=== PATIENT | female | born 1965 | race Caucasian/White ===

== ENCOUNTER 2017-10-28 20:49 | Inpatient (IN) | payer OTHER ==
[~2017-10-28] VITALS: Ht 172.7 cm; Wt 83.9 kg
[2017-10-28 21:51] LABS: ABSOLUTE BASOPHIL COUNT 0 /CUMM (0.0-0.2); ABSOLUTE EOSINOPHIL COUNT 0.1 /CUMM (0.0-0.7); ABSOLUTE GRANULOCYTE CT 11.5 /CUMM (1.4-6.5); ABSOLUTE LYMPH COUNT 1.2 /CUMM (1.2-3.4); ABSOLUTE MONOCYTE COUNT 1.4 /CUMM (0.10-0.60); BASOPHIL % 0.2 % (0.0-2.0); EOSINOPHIL % 0.4 % (0-5); GRANULOCYTE % 80.9 % (42.2-75.2); HEMATOCRIT 42.4 % (37-47); MEAN CORPUSCULAR HGB 33.7 PG (27.0-31.0); MEAN CORPUSCULAR HGB CONC 33.4 G/DL (33.0-37.0); MEAN CORPUSCULAR VOLUME 100.6 FL (81.0-99.0); MEAN PLATELET VOLUME 9.2 FL (7.4-10.4); PLATELET COUNT 185 /CUMM (130-400); RBC DISTRIBUTION WIDTH 15.7 % (11.5-14.5); RED BLOOD CELL CT 4.22 /CUMM (4.20-5.40); WHITE BLOOD CELL COUNT 14.3 /CUMM (4.8-10.8)
--- NOTE | 2017-10-28 21:51 | ED GI/GU/ABDOMINAL COMPLAINT ---
History of Present Illness General Chief Complaint: Nausea, Vomiting, Diarrhea Stated Complaint: +N/V/D X3DAYS, ?RECTAL BLEEDING PER PT Source: patient Exam Limitations: no limitations Vital Signs & Intake/Output Vital Signs & Intake/Output Vital Signs Date Time Temp Pulse Resp B/P B/P Pulse O2 O2 Flow FiO2 Mean Ox Delivery Rate 10/28 2335 99.3 67 20 130/62 96 Room Air 10/28 2105 98.9 82 22 167/87 ED Intake and Output 10/29 0000 10/28 1200 Intake Total 2000 Output Total Balance 1999 Intake, IV 1999 Patient 185 lb Weight Allergies Coded Allergies: NO KNOWN ALLERGIES (10/14/12) Triage Note: PER PT VOMITIING AND DIARRHEA X 2 WEEKS BUT INTERMITTANTLY WILL FEEL WELL, SUNDAY PROFOUND VOMITING AND DIARRHEA AND TODAY BLOOD WITH DIARRHEA Triage Nurses Notes Reviewed? yes ? N Is pt currently ? No Duration: getting worse Timing: recent history Quality/Severity: cramping, moderate Severity Numbers: 5 Location: generalized abdomen Radiation: no radiation HPI: Patient is a 52-year-old female with a past medical history of type 1 diabetes with current insulin pump, osteomyelitis, rheumatoid arthritis currently on prednisone and methotrexate and depression who presents emergency and that the past 2-3 weeks she has noticed intermittent nausea and vomiting however since Sunday 3 days ago patient has had persistent nausea vomiting diarrhea initially was loose watery diarrhea production however in the past 24 hours she has noted significant bright red blood passing Patient can tolerate by mouth liquids however has had intermittent episodes of vomiting nonbloody nonbilious emesis. Last colonoscopy was partially 10 years ago due to family history of colon cancer unremarkable findings Patient is on NSAIDs for her chronic pain and arthritis Denies any significant alcohol use NO fevers but does have chills Denies any significant abdominal pain over feels mild cramping due to nausea and vomiting and diarrhea Denies any chest pain shortness breath arm pain jaw pain back pain, hemoptysis leg swelling (Machelle DIAZ,Hermelindo) Past History Travel History Traveled to [place] past 21 day No Medical History Any Pertinent Medical History? see below for history Neurological: NONE EENT: NONE Cardiovascular: hypertension Respiratory: NONE Gastrointestinal: NONE Hepatic: NONE Renal: NONE Musculoskeletal: RHEMATOID Psychiatric: NONE Endocrine: DM Pneumonia Vaccine: 07/15/10 Influenza Vaccine: 07/15/10 Surgical History Surgical History: hysterectomy Psychosocial History Who do you live with Spouse Services at Home None What is your primary language Greenlandic Tobacco Use: Current Daily Use Daily Tobacco Use Amount/Type: => 5 Cigarettes daily Family History Hx Contributory? No (Hermelindo Riggs) Review of Systems Review of Systems Constitutional: Reports: see HPI, chills. EENTM: Reports: no symptoms. Respiratory: Denies: cough, short of breath. Cardiovascular: Reports: no symptoms. GI: Reports: see HPI, nausea, bloody stool, vomiting. Genitourinary: Reports: no symptoms. Musculoskeletal: Reports: no symptoms. Skin: Reports: no symptoms. Neurological/Psychological: Reports: no symptoms. Hematologic/Endocrine: Reports: no symptoms. Immunologic/Allergic: Reports: no symptoms. All Other Systems: Reviewed and Negative (Hermelindo Riggs) Physical Exam Physical Exam General Appearance: no apparent distress, alert, comfortable Head: atraumatic Eyes: Bilateral: normal appearance. Ears, Nose, Throat, Mouth: moist mucous membrane Neck: normal inspection Respiratory: no respiratory distress Cardiovascular: regular rate/rhythm Peripheral Pulses: 2+ radial (R) Gastrointestinal: normal bowel sounds, soft, tenderness (MILD GENERALIZED) Rectal: normal inspection, normal rectal tone, BRIGHT RED BLOOD AFTER MARCO, NO ACTIVE BLEEDING Extremities: normal range of motion Neurologic/Psych: no motor/sensory deficits Skin: intact, normal color, warm/dry Core Measures ACS in differential dx? No Sepsis Present: No Sepsis Focused Exam Completed? No (Hermelindo Riggs) Progress Differential Diagnosis: AAA, AMI, appendicitis, biliary colic, bowel obstruction , colon cancer, cholecystitis, diverticulitis, endometritis, esophageal varices, gastritis, hepatitis, hernia, hemorrhoids, ischemic bowel, inflamm bowel dis, kidney stone, Aneta-Pattie tear, ovarian cyst, ovarian torsion, pancreatitis, PID/cervicitis, peptic ulcer, PUD/GERD, perforated viscous, SBO, UTI/pyelo Plan of Care: Orders Procedure Date/time Status Nothing by Mouth 10/29 B Active Patient Data 10/29 135 Active Saline Lock 10/29 37 Active Misc Message 10/29 37 Active ED Holding Orders 10/29 37 Active Admit to inpatient 10/29 37 Active Vital Signs 10/29 37 Active Code Status 10/29 37 Active Add-on Test (ER Only) 10/28 2209 Active MIXED VENOUS BLOOD GAS (GEN) 10/28 2154 Complete RAPID VIRAL INFLUENZA A 10/28 2154 Complete Add-on Test (ER Only) 10/28 2153 Active PARTIAL THROMBOPLASTIN TIME 10/28 2136 Complete PROTHROMBIN TIME 10/28 2136 Complete LACTIC ACID 10/28 2136 Complete ACETONE 10/28 2136 Complete TYPE & SCREEN (NOT X-MATCH) 10/28 2136 Complete TROPONIN LEVEL 10/28 2109 Complete LIPASE 10/28 2109 Complete HEPATIC FUNCTION PANEL 10/28 2109 Complete CBC WITHOUT DIFFERENTIAL 10/28 2109 Complete BASIC METABOLIC PANEL 10/28 2109 Complete AMYLASE 10/28 2109 Complete EKG 10/28 2109 Active Laboratory Tests 10/28/172209: Bicarbonate Actual 27 H, Mixed VBG pH 7.40, Mixed VBG pCO2 45, Mixed VBG O2 Saturation 22 L, Carboxyhemoglobin 4.1, O2 Concentration % R/A, Phlebotomy Draw Site VENOUS 10/28/172136: Anion Gap 14, Estimated GFR > 60, BUN/Creatinine Ratio 51.7 H, Glucose 249 H, Lactic Acid 2.5 H, Calcium 9.1, Total Bilirubin 1.0, Direct Bilirubin 0.6 H, AST 17, ALT 32, Alkaline Phosphatase 71, Troponin I 0.02, Total Protein 6.3, Albumin 3.8, Amylase 39, Lipase 13 L, PT 11.8, INR 1.13, APTT 29, CBC w Diff NO MAN DIFF REQ, RBC 4.22, MCV 100.6 H, MCH 33.7 H, RDW 15.7 H, MPV 9.2, Gran % 80.9 H, Lymphocytes % 8.6 L, Monocytes % 9.9 H, Eosinophils % 0.4, Basophils % 0.2, Absolute Granulocytes 11.5 H, Absolute Lymphocytes 1.2, Absolute Monocytes 1.4 H, Absolute Eosinophils 0.1, Absolute Basophils 0, PUBS MCHC 33.4 , Acetone Level NEGATIVE Microbiology 10/28 2223 NASOPHARYN: Influenza Virus A & B Rapid Smear - COMP Patient does have normal rectal tone however after digital rectal exam there was bright red blood Patient was reevaluated on multiple occasions noted to be resting comfortably however noted to be lethargic on exam CT scan was resulted showing concerns of nonspecific colitis discussed results with centrifugal casting machine operator Dr. JACOBS who is aware patient's clinical condition and would vies patient to be admitted in which he advised to hold antibiotics at this time and a colonoscopy after admission will be warranted. Discussed admission with patient who agrees and is aware and has no questions. Diagnostic Imaging: Viewed by Me: CT Scan. Radiology Impression: acute abnormality Initial ED EKG: normal p-waves, normal QRS complex, normal sinus rhythm, NSR 65 BPM Comments: PATIENT: NAHOMI COLÓN PRESENT AGE: 52 PATIENT ACCOUNT NO: [id number] : 64 LOCATION: ER ORDERING PHYSICIAN: Hermelindo DIAZ SERVICE DATE: 10/28/17 EXAM TYPE: CAT - CT ABD & PELVIS W IV CONTRAST EXAMINATION: CT ABDOMEN AND PELVIS WITH CONTRAST CLINICAL INFORMATION: Nausea, vomiting, diarrhea, bloody stool and abdominal pain. COMPARISON: None TECHNIQUE: Multidetector volumetric imaging was performed of the abdomen and pelvis following IV administration of 94 mL of Optiray 320 intravenous contrast. Sagittal and coronal reformatted images were obtained on the technologist's workstation. DLP: 428.27 mGy-cm FINDINGS: LUNG BASES: There is mild bibasilar dependent atelectasis. There are coronary artery atherosclerotic calcifications. LIVER, GALLBLADDER, AND BILIARY TREE: The liver is normal in size, shape, and attenuation. No focal hepatic lesion or biliary ductal dilatation is present. There are tiny dependent gallstones (3:224), without gallbladder wall thickening or obvious pericholecystic inflammatory changes. PANCREAS: Unremarkable. SPLEEN: Unremarkable. ADRENAL GLANDS: Unremarkable. KIDNEYS AND URETERS: The kidneys are normal in size, shape, and attenuation. No hydronephrosis, hydroureter, or calculi seen. Within the upper pole of the left kidney (3:223), there is a 1.0 cm low-attenuation probable cyst, too small to fully characterize with CT. No perinephric stranding. BLADDER: Unremarkable. GASTROINTESTINAL TRACT: There is marked colonic wall thickening involving the distal transverse colon, splenic flexure and the descending colon. There is adjacent mesenteric fat stranding. There is a small amount of free fluid within the pelvis. No obstruction, free intraperitoneal air or abscess is seen. There are a few scattered colonic diverticuli, without acute diverticulitis seen. The vermiform appendix appears normal. ABDOMINAL WALL: There are very small fat-containing bilateral hernias. LYMPH NODES: Normal. VASCULAR: There is mild aortoiliac atherosclerotic change. No abdominal aortic aneurysm is seen. PELVIC VISCERA: The uterus is atrophic or surgically absent. No adnexal mass is seen. Moderate pelvic free fluid seen. OSSEOUS STRUCTURES: Unremarkable. IMPRESSION: 1. There is diffuse wall thickening of the distal transverse colon, splenic flexure and the descending colon. Likely differential considerations include infectious colitis (including C. difficile), inflammatory bowel disease and, less likely, ischemia. Please correlate clinically. 2. No obstruction, free intraperitoneal air or abscess is seen. The vermiform appendix appears normal. 3. There is mild cholelithiasis. 4. Moderate pelvic free fluid is seen. DICTATED BY: Dipesh Araujo MD DATE/TIME DICTATED:10/28/172313 REGULATORY COORDINATOR:JEROME (Hermelindo Riggs) Departure Departure Disposition: STILL A PATIENT Condition: Stable Clinical Impression Primary Impression: Rectal bleed Secondary Impressions: Colitis, Diarrhea Referrals: Ryann Puentes MD (PCP/Family) Departure Forms: Customer Survey General Discharge Information Admission Note Spoke With: Faith Silva MD Documentation of Exam: Documentation of any treatments & extenuating circumstances including Concerns Regarding Discharge (functional status, medication knowledge or non-compliance, living conditions, etc.) that warrant an admission rather than observation: [ Patient requires IV fluids, repeat labs, gastric gastroenterology consultation colonoscopy for concerns of GI bleed] (Hermelindo Riggs) PA/KILN SETTER Co-Sign Statement Statement: ED Attending supervision documentation- [x] I saw and evaluated the patient. I have also reviewed all the pertinent lab results and diagnostic results. I agree with the findings and the plan of care as documented in the PA's/KILN SETTER's documentation. 10/29/17, 0:15... pt with gi slow gi bleed... PA discussed with GI... pt to be admitted for serial hct. [] I have reviewed the ED Record and agree with the PA's/KILN SETTER's documentation. [] Additions or exceptions (if any) to the PAs/KILN SETTER's note and plan are summarized below: [] (Vicki DIAZ,Dov Aguilera) Critical Care Note Critical Care Note Critical Care Time: 30-74 min (Hermelindo Riggs)
[2017-10-28 22:48] LABS: PT 11.8 SEC (9.4-12.5); PTT 29 SEC (25-37)
--- NOTE | 2017-10-28 23:27 | CT SCAN REPORT ---
EXAMINATION: CT ABDOMEN AND PELVIS WITH CONTRAST CLINICAL INFORMATION: Nausea, vomiting, diarrhea, bloody stool and abdominal pain. COMPARISON: None TECHNIQUE: Multidetector volumetric imaging was performed of the abdomen and pelvis following IV administration of 94 mL of Optiray 320 intravenous contrast. Sagittal and coronal reformatted images were obtained on the technologist's workstation. DLP: 428.27 mGy-cm FINDINGS: LUNG BASES: There is mild bibasilar dependent atelectasis. There are coronary artery atherosclerotic calcifications. LIVER, GALLBLADDER, AND BILIARY TREE: The liver is normal in size, shape, and attenuation. No focal hepatic lesion or biliary ductal dilatation is present. There are tiny dependent gallstones (3:224), without gallbladder wall thickening or obvious pericholecystic inflammatory changes. PANCREAS: Unremarkable. SPLEEN: Unremarkable. ADRENAL GLANDS: Unremarkable. KIDNEYS AND URETERS: The kidneys are normal in size, shape, and attenuation. No hydronephrosis, hydroureter, or calculi seen. Within the upper pole of the left kidney (3:223), there is a 1.0 cm low-attenuation probable cyst, too small to fully characterize with CT. No perinephric stranding. BLADDER: Unremarkable. GASTROINTESTINAL TRACT: There is marked colonic wall thickening involving the distal transverse colon, splenic flexure and the descending colon. There is adjacent mesenteric fat stranding. There is a small amount of free fluid within the pelvis. No obstruction, free intraperitoneal air or abscess is seen. There are a few scattered colonic diverticuli, without acute diverticulitis seen. The vermiform appendix appears normal. ABDOMINAL WALL: There are very small fat-containing bilateral hernias. LYMPH NODES: Normal. VASCULAR: There is mild aortoiliac atherosclerotic change. No abdominal aortic aneurysm is seen. PELVIC VISCERA: The uterus is atrophic or surgically absent. No adnexal mass is seen. Moderate pelvic free fluid seen. OSSEOUS STRUCTURES: Unremarkable. IMPRESSION: 1. There is diffuse wall thickening of the distal transverse colon, splenic flexure and the descending colon. Likely differential considerations include infectious colitis (including C. difficile), inflammatory bowel disease and, less likely, ischemia. Please correlate clinically. 2. No obstruction, free intraperitoneal air or abscess is seen. The vermiform appendix appears normal. 3. There is mild cholelithiasis. 4. Moderate pelvic free fluid is seen.
--- NOTE | 2017-10-29 00:46 | History & Physical ---
General Information and HPI Allergies/Medications Allergies: Coded Allergies: NO KNOWN ALLERGIES (10/14/12) Home Med list Bupropion HCl (Wellbutrin XL) 300 MG TAB.ER.24H 1 TAB PO DAILY DESPRESSION ( Reported) Fluoxetine HCl (Prozac) 40 MG CAPSULE 1 CAP PO DAILY DEPRESSION (Reported) Lisinopril 10 MG TABLET 1 TAB PO DAILY HTN (Reported) Methotrexate Sodium/Pf (Methotrexate 25 MG/Ml Vial) 25 MG/ML VIAL 25 ML IV MONDAYS RA (Reported) Morphine Sulfate (Morphine Sulfate ER) 60 MG TABLET.ER 1 TAB PO TID RA ( Reported) Oxycodone HCl/Acetaminophen (Percocet 10-325 MG Tablet) 10 MG-325 MG TABLET 1 TAB PO TID RA (Reported) Prednisone 5 MG TABLET 1 TAB PO DAILY RA (Reported) Trazodone HCl 100 MG TABLET 1 TAB PO QPM INSOMINIA (Reported) Past History Travel History Traveled to [place] past 21 day No Medical History Neurological: NONE EENT: NONE Cardiovascular: hypertension Respiratory: NONE Gastrointestinal: NONE Hepatic: NONE Renal: NONE Musculoskeletal: RHEMATOID Psychiatric: NONE Endocrine: DM Pneumonia Vaccine: 07/15/10 Influenza Vaccine: 07/15/10 Surgical History Surgical History: hysterectomy Past Family/Social History Psychosocial History Services at Home: None
[2017-10-29] MEDS ORDERED: TRAZODONE HCL100 M1 PO (02:05)
[2017-10-29] MEDS ORDERED: PROZAC40 M1 PO (02:05)
[2017-10-29] MEDS ORDERED: LISINOPRIL10 M1 PO (02:05)
[2017-10-29] MEDS ORDERED: PERCOCET 10-321 EACH PO (02:06)
[2017-10-29] MEDS ORDERED: PREDNISONE5 M1 PO (02:06)
[2017-10-29] MEDS ORDERED: WELLBUTRIN XL300 M2 PO (02:06)
[2017-10-29] MEDS ORDERED: MORPHINE SULFAT60 M4 PO (02:07)
[2017-10-29] MEDS ORDERED: METHOTREXA25 MG/1 M2 IV (02:25)
--- NOTE | 2017-10-29 05:07 | History & Physical ---
JamshidRenetta 10/29/17 0444: General Information and HPI MD Statement: I have seen and personally examined NAHOMI COLÓN and documented this H&P. The patient is a 52 year old F who presented with a patient stated chief complaint of vomiting, bloody stools Source of Information: patient Exam Limitations: no limitations History of Present Illness: Patient is a 52-year-old woman with a past medical history significant for rheumatoid arthritis (on methotrexate and prednisone), history of type 1 diabetes mellitus on insulin pump, history of anxiety depression, history of hypertension and hyperlipidemia, history of chronic pain syndrome from rheumatoid arthritis on opiates presented to the ED for evaluation of vomiting and bloody stools. Patient has been having intermittent vomiting with loose watery stools for the last 3 weeks, that subside after 3-4 days. On Sunday night she started having again nonbloody nonbilious vomiting along with explosive loose watery stools with cramping abdominal pain. Denied any fever or chills, couldn't able to tolerate anything by mouth. She had almost 10- 12 loose stools on Sunday without any blood along with multiple episodes of vomiting. Her symptoms subsided until Sunday morning when after having soda, she she started having large bright red blood along with loose stools (almost 5 episodes ), remained nauseous throughout the day, and came to the ED for evaluation. Patient denied any recent sick contacts/recent travels/recent change of medications. Denied any NSAIDS/blood thinner use. She had a colonoscopy at the age of 42(results of which were normal), due to history of colon cancer in his father. As mentioned above she has been having intermittent vomiting with loose stools for the last 3 weeks, but never had bright blood per rectum. Also she mentioned that she has been having difficulty swallowing, not painful for the last couple of weeks, more to solid food intake. Denied any chest discomfort or trouble breathing palpitations, denied any recent weight loss denied any urinary complaints, patient continues to smoke one pack a day for more than 40 years, occasional alcoholuse, denies any illicit drug use. Allergies/Medications Allergies: Coded Allergies: NO KNOWN ALLERGIES (10/14/12) Home Med list Bupropion HCl (Wellbutrin XL) 300 MG TAB.ER.24H 1 TAB PO DAILY DESPRESSION ( Reported) Fluoxetine HCl (Prozac) 40 MG CAPSULE 1 CAP PO DAILY DEPRESSION (Reported) Lisinopril 10 MG TABLET 1 TAB PO DAILY HTN (Reported) Methotrexate Sodium/Pf (Methotrexate 25 MG/Ml Vial) 25 MG/ML VIAL 25 ML IV MONDAYS RA (Reported) Morphine Sulfate (Morphine Sulfate ER) 60 MG TABLET.ER 1 TAB PO TID RA ( Reported) Oxycodone HCl/Acetaminophen (Percocet 10-325 MG Tablet) 10 MG-325 MG TABLET 1 TAB PO TID RA (Reported) Prednisone 5 MG TABLET 1 TAB PO DAILY RA (Reported) Trazodone HCl 100 MG TABLET 1 TAB PO QPM INSOMINIA (Reported) Past History Travel History Traveled to [place] past 21 day No Medical History Neurological: NONE EENT: NONE Cardiovascular: hypertension Respiratory: NONE Gastrointestinal: NONE Hepatic: NONE Renal: NONE Musculoskeletal: RHEMATOID Psychiatric: NONE Endocrine: DM Pneumonia Vaccine: 07/15/10 Influenza Vaccine: 07/15/10 Surgical History Surgical History: hysterectomy Past Family/Social History Family History Relations & Conditions if any FATHER (colorectal cancer). Psychosocial History Services at Home: None Review of Systems Review of Systems Constitutional: Denies: diaphoresis, fever, malaise, weakness. EENTM: Denies: visual changes. Cardiovascular: Denies: chest pain, orthopena, palpitations. Respiratory: Denies: hemoptysis, orthopnea, short of breath. GI: Reports: abdominal pain, diarrhea, bloody stool. Denies: bloating, constipation. Genitourinary: Denies: dysuria, frequency, hesitation. Exam & Diagnostic Data Last 24 Hrs of Vital Signs/I&O Vital Signs Date Time Temp Pulse Resp B/P B/P Pulse O2 O2 Flow FiO2 Mean Ox Delivery Rate 10/29 0400 98.4 80 20 129/64 97 Room Air 10/29 0145 70 18 131/61 96 Room Air 10/28 2335 99.3 67 20 130/62 96 Room Air 10/28 2105 98.9 82 22 167/87 Intake & Output 10/29 0800 10/29 0000 10/28 1600 Intake Total 2000 Output Total 500 Balance -500 2000 Intake, IV 2000 Output, Urine 500 Patient 185 lb Weight Physical Exam General Appearance Alert, Oriented X3, Mild Distress Skin Temp/Moisture Exam: Warm/Dry HEENT Atraumatic, PERRLA Neck Supple, No JVD Cardiovascular Regular Rate, Normal S1, Normal S2 Lungs Clear to Auscultation, Normal Air Movement Assessment/Plan Assessment: Patient is a 52-year-old woman with a past medical history significant for rheumatoid arthritis (on methotrexate and prednisone), history of type 1 diabetes mellitus on insulin pump, history of anxiety depression, history of hypertension and hyperlipidemia, history of chronic pain syndrome from rheumatoid arthritis on opiates presented to the ED for evaluation of vomiting and bloody stools. Vitals on admission temperature 98.9, pulse 84, respiratory 22, repeated 167/87 on room air Pertinent labs leukocytosis 14.3 slight hyponatremia elevated BUN blood code was level [id number] EKG showed normal sinus rhythm without any ST=-T changes. First troponin less than 0.01 CT abdomen and pelvis revealed diffuse wall thickening of the distal transverse colon, splenic flexure and the descending colon. Likely differential considerations include infectious colitis (including C. difficile), inflammatory bowel disease and, less likely, ischemia. Please correlate clinically. Problem list Vomiting with bright red blood per rectum(likely lower GI bleed) Difficulty swallowing History of hypertension hyperlipidemia hx of rheumatoid arthritis (on methotrexate and prednisone) history of type 1 diabetes mellitus on insulin pump history of anxiety depression Plan Vomiting with bright red blood per rectum(likely lower GI bleed/infectious colitis: * Admit the patient admitted floor * ED physician assistant manager bilingual already talked to Dr. Montoya (gastroentrologist) over the phone, will keep her nothing by mouth for now in anticipation for possible colonoscopy in the morning/later during the day. * Hold any antibiotics for now as per GI recommendations. * Continue with IV hydration. * Trend lactate is a levels. * Obtain stool studies including culture , obtain C. difficile * Obtain formal GI consult in the morning. * Hold methotrexate for now. * Monitor CBC every 8 hours. * Zofran as needed for nausea and vomiting * Watch for any active signs of bleed. * Watch for any hemodynamic instability. * Hold antihypertensives. 2. Difficulty swallowing * Obtain formal GI consult in the morning. * Consider endoscopy for further evaluation. History of hypertension hyperlipidemia * Continue statin hold lisinopril. hx of rheumatoid arthritis (on methotrexate and prednisone) * Continue 5 mg of prednisone * Hold methotrexate in the setting of infectious colitis. history of type 1 diabetes mellitus on insulin pump * OfF insulin pump now * Talked to Dr. diallo over the phone she recommended to start the patient on Levemir 10 mg 3 times a day along with NovoLog every 4 sliding scale. * Accu-Cheks , history of anxiety depression * Continue home medications Chronic pain syndrome due to rheumatoid arthritis(history of opioid dependence) * Continue extended release morphine sulfate 60 mg 3 times a day along with IV morphine for breakthrough pain and Percocet. Severe pain control with IV morphine DVT prophylaxis Alps only in the setting of GI bleed patient is full code As Ranked By This Provider Problem List: 1. Rectal bleed Core Measures/Misc (07/01) Acute Coronary Syndrome ACS Diagnosis: No Congestive Heart Failure Congestive Heart Failure Diagnosis No Cerebrovascular Accident CVA/TIA Diagnosis: No VTE (View Protocol) VTE Risk Factors No risk factors No Mechanical VTE Prophylaxis d/t Early Ambulation No VTE Pharm Prophylaxis d/t Bleeding (Active) Sepsis (View protocol) Sepsis Present: No Resident Review Statement Resident Statement: examined this patient, discussed with sales management intern Ricardo DIAZ, [facility] 10/29/17 0837: Attending MD Review Statement Attending Statement Attending MD Statement: examined this patient, discuss w/resident/PA/EDUCATIONAL AID, agreed w/resident/PA/EDUCATIONAL AID, reviewed images, amended to note Attending Assessment/Plan: 52 yo F smoker with h/o RA on prednisone and methotrexate, HTN, T1DM on insulin pump, chronic pain on opiates is here with 3-week h/o intermittent nausea, vomiting and nonbloody diarrhea, that has worsened over the past 3 days, now with multiple episodes of bright red bloody diarrhea in the past 24 hours associated with abdominal cramps. Poor PO intake. No sick contacts or recent travel. No new medications. No NSAID use. Last colonoscopy 10 yrs ago was normal. No h/o IBD. Vitals stable. Labs: WBC 14.3, macrocytic anemia, INR 1.13, BUN 31, glucose 249, lactic acid 2.5. CT abd/pelvis: diffuse wall thickening of distal transverse colon, splenic flexure and descending colon likely infectious colitis, IBD, less likely ischemia. No obstruction, free air or abscess. Mild cholelithiasis. Moderate pelvic free fluid. EKG: SR. Assessment and plan: 1. Colitis infectious vs inflammatory 2. Lower GI bleed 3. Rheumatoid arthritis on prednisone and methotrexate 4. T1DM on insulin pump 5. Essential hypertension - Admit to general medicine - NPO - IV fluids, anti-emetics - Trend lactic acid - Serial abdomen exam - GI consult - Per Dr. Montoya, hold off antibiotics for now - Stool studies if persistent diarrhea - Plan for ?colonoscopy per GI - Hold methotrexate - Continue prednisone, if hypotensive consider stress dose steroids - Hold off anti-hypertensive meds - Discontinue insulin pump per hospital policy - Endo consult - Initiate levemir and regular insulin Q4 per Endo recs - Obtain swallow eval patient had c/o difficulty swallowing, no odynophagia, ? EGD - Pain management follows Dr. Santacruz. - Smoking cessation counseling DVT ppx Alps. Full code.
[2017-10-29 06:27] LABS: ABSOLUTE BASOPHIL COUNT 0.1 /CUMM (0.0-0.2); ABSOLUTE EOSINOPHIL COUNT 0.1 /CUMM (0.0-0.7); ABSOLUTE GRANULOCYTE CT 8.6 /CUMM (1.4-6.5); ABSOLUTE LYMPH COUNT 1.3 /CUMM (1.2-3.4); ABSOLUTE MONOCYTE COUNT 1.2 /CUMM (0.10-0.60); BASOPHIL % 0.4 % (0.0-2.0); GRANULOCYTE % 76.7 % (42.2-75.2); MEAN CORPUSCULAR HGB 33.6 PG (27.0-31.0); MEAN CORPUSCULAR HGB CONC 33.3 G/DL (33.0-37.0); MEAN CORPUSCULAR VOLUME 100.8 FL (81.0-99.0); MEAN PLATELET VOLUME 9.1 FL (7.4-10.4); PLATELET COUNT 146 /CUMM (130-400); RBC DISTRIBUTION WIDTH 15.5 % (11.5-14.5); RED BLOOD CELL CT 3.54 /CUMM (4.20-5.40); WHITE BLOOD CELL COUNT 11.3 /CUMM (4.8-10.8)
[2017-10-29 06:34] LABS: HEMATOCRIT 35.7 % (37-47)
[2017-10-29 07:00] VITALS: BP 134/60
--- NOTE | 2017-10-29 08:38 | Admission Certification ---
Admission Certification Certification Statement - As attending physician, I certify that at the time of - admission, based on clinical presentation, severity of - symptoms, need for further diagnostic testing and - therapeutic interventions, and risk of adverse outcomes - without in-hospital treatment, in my clinical assessment, - this patient requires an acute hospital stay for a minimum - of two nights or longer. I have also considered psychsocial - factors such as support system, advanced age, financial - issues, cognitive issues, and failed out-patient treatments, - past re-admission history, safety of patient, and lack of - compliance as applicable. Specific rationale supporting this admission is: Colitis possibly infectious vs. inflammatory, lower GI bleed.
--- NOTE | 2017-10-29 11:13 | Cons- Endocrinology ---
General Information and HPI Consulting Request Date of Consult: 10/29/17 Requested By: medical team Reason for Consult: management of diabetes type 1 ( she is on insulin pump) Source of Information: patient, old records Exam Limitations: no limitations History of Present Illness: Patient is a 52-year-old woman with a past medical history significant for rheumatoid arthritis (on methotrexate and prednisone 5 mg daily ), history of type 1 diabetes mellitus on insulin pump, history of anxiety depression, history of hypertension and hyperlipidemia, history of chronic pain syndrome on opiates presented to the ED for evaluation of vomiting and bloody stools. Patient has been having intermittent vomiting with loose watery stools for the last 3 weeks She had a colonoscopy at the age of 42 due to history of colon cancer in his father. Both RA and diabetes type 1 were diafgnosed when she was in her 30s. Currently she is on Omnipod insulin pump. Basal insulin: total basal insulin over 24 hours 22.8 units midnight 0.75 units per hour 3 am 0.8 units per hour 10 am 1.0 units per hour 2:30 pm 1.25 units per hour 8 pm 0.9 units per hour Bolus settings: IC ratio 10 grams insulin sensitivity 40 mg/dl target 110-120 mg/dl active insulin time 2.5 hours She has been kept NPO and is receiving D5 1/2 NS at 75 ml/hour. Her insulin pump was disconnected when she was in ER due to the [facility] policy. Her FSGs were 244 and 271. She still has abdominal pain and nausea. Last night, she was put on Levemir 10 units twice a day and Novolog coverage every 4 hours. Allergies/Medications Allergies: Coded Allergies: NO KNOWN ALLERGIES (10/14/12) Home Med List: Bupropion HCl (Wellbutrin XL) 300 MG TAB.ER.24H 1 TAB PO DAILY DESPRESSION ( Reported) Fluoxetine HCl (Prozac) 40 MG CAPSULE 1 CAP PO DAILY DEPRESSION (Reported) Lisinopril 10 MG TABLET 1 TAB PO DAILY HTN (Reported) Methotrexate Sodium/Pf (Methotrexate 25 MG/Ml Vial) 25 MG/ML VIAL 25 ML IV MONDAYS RA (Reported) Morphine Sulfate (Morphine Sulfate ER) 60 MG TABLET.ER 1 TAB PO TID RA ( Reported) Oxycodone HCl/Acetaminophen (Percocet 10-325 MG Tablet) 10 MG-325 MG TABLET 1 TAB PO TID RA (Reported) Prednisone 5 MG TABLET 1 TAB PO DAILY RA (Reported) Trazodone HCl 100 MG TABLET 1 TAB PO QPM INSOMINIA (Reported) Review of Systems Review of Systems Constitutional: Reports: see HPI. Cardiovascular: Denies: chest pain. Respiratory: Denies: short of breath. GI: Reports: abdominal pain, diarrhea, nausea, bloody stool. Musculoskeletal: Reports: joint pain. Hematologic/Endocrine: Denies: polyuria, polydipsia. Past History Travel History Traveled to [place] past 21 day No Medical History Blood Transfusion Hx: No Neurological: NONE EENT: NONE Cardiovascular: hypertension Respiratory: NONE Gastrointestinal: NONE Hepatic: NONE Renal: NONE Musculoskeletal: RHEMATOID Psychiatric: NONE Endocrine: DM type 1 on insulin pump Blood Disorders: NONE Cancer(s): NONE PATIENT SERVICES COORDINATOR/Reproductive: NONE Surgical History Surgical History: non-contributory, hysterectomy Family History Relations & Conditions If Any: FATHER (colorectal cancer). Psychosocial History Where Do You Live? Home Services at Home: None Smoking Status: Current Everyday Smoker Exam & Diagnostic Data Last 24 Hrs of Vital Signs/I&O Vital Signs Date Time Temp Pulse Resp B/P B/P Pulse O2 O2 Flow FiO2 Mean Ox Delivery Rate 10/29 0700 98.6 64 18 134/60 100 Room Air 10/29 0609 98.6 64 18 134/60 100 Room Air 10/29 0400 98.4 80 20 129/64 97 Room Air 10/29 0145 70 18 131/61 96 Room Air 10/28 2335 99.3 67 20 130/62 96 Room Air 10/28 2105 98.9 82 22 167/87 Intake & Output 10/29 1600 10/29 0800 10/29 0000 Intake Total 2000 Output Total 500 Balance -500 2000 Intake, IV 2000 Output, Urine 500 Patient 185 lb 185 lb Weight Weight Reported by Patient Measurement Method Physical Exam General Appearance: no apparent distress Neck: normal inspection Respiratory: lungs clear Cardiovascular: regular rate/rhythm Gastrointestinal: soft, tenderness (at lower abdomen) Extremities: no edema Labs/South Results: Laboratory Tests 10/29 10/29 10/29 10/28 0559 0559 [id number] Blood Gas Bicarbonate Actual (22 - 26 MEQ/L) 27 H Mixed VBG pH (7.31 - 7.41 PH) 7.40 Mixed VBG pCO2 (41 - 51 TORR) 45 Mixed VBG O2 Saturation (35 - 45 TORR) 22 L Carboxyhemoglobin (1.5 - 5.0 %) 4.1 O2 Concentration % R/A Chemistry Sodium (137 - 145 mmol/L) 137 Potassium (3.5 - 5.1 mmol/L) 4.5 Chloride (98 - 107 mmol/L) 104 Carbon Dioxide (22 - 30 mmol/L) 20 L Anion Gap (5 - 16) 14 BUN (7 - 17 mg/dL) 21 H Creatinine (0.5 - 1.0 mg/dL) 0.5 Estimated GFR (>60 ml/min) > 60 BUN/Creatinine Ratio (7 - 25 %) 42.0 H Lactic Acid (0.7 - 2.1 mmol/L) 1.1 1.3 Hematology CBC w Diff NO MAN DIFF REQ WBC (4.8 - 10.8 /CUMM) 11.3 H RBC (4.20 - 5.40 /CUMM) 3.54 L Hgb (12.0 - 16.0 G/DL) 11.9 L Hct (37 - 47 %) 35.7 L MCV (81.0 - 99.0 FL) 100.8 H MCH (27.0 - 31.0 PG) 33.6 H RDW (11.5 - 14.5 %) 15.5 H Plt Count (130 - 400 /CUMM) 146 MPV (7.4 - 10.4 FL) 9.1 Gran % (42.2 - 75.2 %) 76.7 H Lymphocytes % (20.5 - 51.1 %) 11.2 L Monocytes % (1.7 - 9.3 %) 10.7 H Eosinophils % (0 - 5 %) 1.0 Basophils % (0.0 - 2.0 %) 0.4 Absolute Granulocytes (1.4 - 6.5 /CUMM) 8.6 H Absolute Lymphocytes (1.2 - 3.4 /CUMM) 1.3 Absolute Monocytes (0.10 - 0.60 /CUMM) 1.2 H Absolute Eosinophils (0.0 - 0.7 /CUMM) 0.1 Absolute Basophils (0.0 - 0.2 /CUMM) 0.1 PUBS MCHC (33.0 - 37.0 G/DL) 33.3 Miscellaneous Phlebotomy Draw Site VENOUS 01/14 2137 Chemistry Sodium (137 - 145 mmol/L) 136 L Potassium (3.5 - 5.1 mmol/L) 4.2 Chloride (98 - 107 mmol/L) 98 Carbon Dioxide (22 - 30 mmol/L) 24 Anion Gap (5 - 16) 14 BUN (7 - 17 mg/dL) 31 H Creatinine (0.5 - 1.0 mg/dL) 0.6 Estimated GFR (>60 ml/min) > 60 BUN/Creatinine Ratio (7 - 25 %) 51.7 H Glucose (65 - 99 mg/dL) 249 H Lactic Acid (0.7 - 2.1 mmol/L) 2.5 H Calcium (8.4 - 10.2 mg/dL) 9.1 Total Bilirubin (0.2 - 1.3 mg/dL) 1.0 Direct Bilirubin (< 0.4 mg/dL) 0.6 H AST (14 - 36 U/L) 17 ALT (9 - 52 U/L) 32 Alkaline Phosphatase (<127 U/L) 71 Troponin I (< 0.11 ng/ml) 0.02 Total Protein (6.3 - 8.2 g/dL) 6.3 Albumin (3.5 - 5.0 g/dL) 3.8 Amylase (30 - 110 U/L) 39 Lipase (23 - 300 U/L) 13 L Coagulation PT (9.4 - 12.5 SEC) 11.8 INR (0.90 - 1.19) 1.13 APTT (25 - 37 SEC) 29 Hematology CBC w Diff NO MAN DIFF REQ WBC (4.8 - 10.8 /CUMM) 14.3 H RBC (4.20 - 5.40 /CUMM) 4.22 Hgb (12.0 - 16.0 G/DL) 14.2 Hct (37 - 47 %) 42.4 MCV (81.0 - 99.0 FL) 100.6 H MCH (27.0 - 31.0 PG) 33.7 H RDW (11.5 - 14.5 %) 15.7 H Plt Count (130 - 400 /CUMM) 185 MPV (7.4 - 10.4 FL) 9.2 Gran % (42.2 - 75.2 %) 80.9 H Lymphocytes % (20.5 - 51.1 %) 8.6 L Monocytes % (1.7 - 9.3 %) 9.9 H Eosinophils % (0 - 5 %) 0.4 Basophils % (0.0 - 2.0 %) 0.2 Absolute Granulocytes (1.4 - 6.5 /CUMM) 11.5 H Absolute Lymphocytes (1.2 - 3.4 /CUMM) 1.2 Absolute Monocytes (0.10 - 0.60 /CUMM) 1.4 H Absolute Eosinophils (0.0 - 0.7 /CUMM) 0.1 Absolute Basophils (0.0 - 0.2 /CUMM) 0 PUBS MCHC (33.0 - 37.0 G/DL) 33.4 Toxicology Acetone Level (NEGATIVE) NEGATIVE CT scan showed marked colonic wall thickening involving the distal transverse colon, splenic flexure and the descending colon. There is adjacent mesenteric fat stranding. There is a small amount of free fluid within the pelvis. Assessment/Plan Assessment/Plan Patient is a 52-year-old woman with a past medical history significant for rheumatoid arthritis (on methotrexate and prednisone 5 mg daily ), history of type 1 diabetes mellitus on insulin pump, history of anxiety depression, history of hypertension and hyperlipidemia, history of chronic pain syndrome on opiates presented to the ED for evaluation of vomiting and bloody stools. Patient has been having intermittent vomiting with loose watery stools for the last [address] scan showed marked colonic wall thickening involving the distal transverse colon, splenic flexure and the descending colon. GI consult is pending. She has been kept NPO and is receiving D5 1/2 NS at 75 ml/ hour. She was put on Levemir 10 units twice a day and Novolog coverage every 4 hours. Her FSGs were in the 200s. Plan: 1. increase Levemir to 12 units twice a day; 2. adjust Novolog coverage every 4 hours; detail see the inpatient DM order; 3. monitor FSGs. 4. as she has been prednisone 5 mg daily chronically, I will recommend adding stress dose of steroid --- hydrocortisone 25 mg iv daily for now; 5.recommend checking TFT just to make sure ( add-on to the ER lab) will follow. Inpatient Diabetes Orders Every 4 Hours: Bolus Insulin: Novolog < 80 mg/dl: no coverage 80-100 mg/dl: no coverage 101-120 mg/dl: no coverage 121-150 mg/dl: 3 units 151-200 mg/dl: 4 units 201-250 mg/dl: 6 units 251-300 mg/dl: 8 units 301-350 mg/dl: 10 units 351-400 mg/dl: 12 units > 400 mg/dl: 14 units Consult Acknowledgment - Thank you for your consult request.
--- NOTE | 2017-10-29 11:56 | PN- Att Addend ---
Attending Addendum Attending Brief Note Patient seen and examined, still containing of overall generalized abdominal tenderness. Did not have any further episodes of nausea vomiting or diarrhea. Vital Signs Date Time Temp Pulse Resp B/P B/P Pulse O2 O2 Flow FiO2 Mean Ox Delivery Rate 10/29 0700 98.6 64 18 134/60 100 Room Air 10/29 0609 98.6 64 18 134/60 100 Room Air 10/29 0400 98.4 80 20 129/64 97 Room Air 10/29 0145 70 18 131/61 96 Room Air 10/28 2335 99.3 67 20 130/62 96 Room Air 10/28 2105 98.9 82 22 167/87 on exam; aox3, nad. cv; s1, s2, rrr resp; clear abd; soft, generalized tenderness mild, bs+ ext; no edema. Laboratory Tests 10/29 10/29 10/29 10/28 0559 0559 0336 2210 Blood Gas Bicarbonate Actual (22 - 26 MEQ/L) 27 H Mixed VBG pH (7.31 - 7.41 PH) 7.40 Mixed VBG pCO2 (41 - 51 TORR) 45 Mixed VBG O2 Saturation (35 - 45 TORR) 22 L Carboxyhemoglobin (1.5 - 5.0 %) 4.1 O2 Concentration % R/A Chemistry Sodium (137 - 145 mmol/L) 137 Potassium (3.5 - 5.1 mmol/L) 4.5 Chloride (98 - 107 mmol/L) 104 Carbon Dioxide (22 - 30 mmol/L) 20 L Anion Gap (5 - 16) 14 BUN (7 - 17 mg/dL) 21 H Creatinine (0.5 - 1.0 mg/dL) 0.5 Estimated GFR (>60 ml/min) > 60 BUN/Creatinine Ratio (7 - 25 %) 42.0 H Lactic Acid (0.7 - 2.1 mmol/L) 1.1 1.3 TSH (0.270 - 4.200 uIU/mL) Pending Free T4 (0.64 - 1.79 ng/dL) Pending Total T3 (0.97 - 1.69 ng/mL) Pending Hematology CBC w Diff NO MAN DIFF REQ WBC (4.8 - 10.8 /CUMM) 11.3 H RBC (4.20 - 5.40 /CUMM) 3.54 L Hgb (12.0 - 16.0 G/DL) 11.9 L Hct (37 - 47 %) 35.7 L MCV (81.0 - 99.0 FL) 100.8 H MCH (27.0 - 31.0 PG) 33.6 H RDW (11.5 - 14.5 %) 15.5 H Plt Count (130 - 400 /CUMM) 146 MPV (7.4 - 10.4 FL) 9.1 Gran % (42.2 - 75.2 %) 76.7 H Lymphocytes % (20.5 - 51.1 %) 11.2 L Monocytes % (1.7 - 9.3 %) 10.7 H Eosinophils % (0 - 5 %) 1.0 Basophils % (0.0 - 2.0 %) 0.4 Absolute Granulocytes (1.4 - 6.5 /CUMM) 8.6 H Absolute Lymphocytes (1.2 - 3.4 /CUMM) 1.3 Absolute Monocytes (0.10 - 0.60 /CUMM) 1.2 H Absolute Eosinophils (0.0 - 0.7 /CUMM) 0.1 Absolute Basophils (0.0 - 0.2 /CUMM) 0.1 PUBS MCHC (33.0 - 37.0 G/DL) 33.3 Miscellaneous Phlebotomy Draw Site VENOUS 10/287 Chemistry Sodium (137 - 145 mmol/L) 136 L Potassium (3.5 - 5.1 mmol/L) 4.2 Chloride (98 - 107 mmol/L) 98 Carbon Dioxide (22 - 30 mmol/L) 24 Anion Gap (5 - 16) 14 BUN (7 - 17 mg/dL) 31 H Creatinine (0.5 - 1.0 mg/dL) 0.6 Estimated GFR (>60 ml/min) > 60 BUN/Creatinine Ratio (7 - 25 %) 51.7 H Glucose (65 - 99 mg/dL) 249 H Lactic Acid (0.7 - 2.1 mmol/L) 2.5 H Calcium (8.4 - 10.2 mg/dL) 9.1 Total Bilirubin (0.2 - 1.3 mg/dL) 1.0 Direct Bilirubin (< 0.4 mg/dL) 0.6 H AST (14 - 36 U/L) 17 ALT (9 - 52 U/L) 32 Alkaline Phosphatase (<127 U/L) 71 Troponin I (< 0.11 ng/ml) 0.02 Total Protein (6.3 - 8.2 g/dL) 6.3 Albumin (3.5 - 5.0 g/dL) 3.8 Amylase (30 - 110 U/L) 39 Lipase (23 - 300 U/L) 13 L Coagulation PT (9.4 - 12.5 SEC) 11.8 INR (0.90 - 1.19) 1.13 APTT (25 - 37 SEC) 29 Hematology CBC w Diff NO MAN DIFF REQ WBC (4.8 - 10.8 /CUMM) 14.3 H RBC (4.20 - 5.40 /CUMM) 4.22 Hgb (12.0 - 16.0 G/DL) 14.2 Hct (37 - 47 %) 42.4 MCV (81.0 - 99.0 FL) 100.6 H MCH (27.0 - 31.0 PG) 33.7 H RDW (11.5 - 14.5 %) 15.7 H Plt Count (130 - 400 /CUMM) 185 MPV (7.4 - 10.4 FL) 9.2 Gran % (42.2 - 75.2 %) 80.9 H Lymphocytes % (20.5 - 51.1 %) 8.6 L Monocytes % (1.7 - 9.3 %) 9.9 H Eosinophils % (0 - 5 %) 0.4 Basophils % (0.0 - 2.0 %) 0.2 Absolute Granulocytes (1.4 - 6.5 /CUMM) 11.5 H Absolute Lymphocytes (1.2 - 3.4 /CUMM) 1.2 Absolute Monocytes (0.10 - 0.60 /CUMM) 1.4 H Absolute Eosinophils (0.0 - 0.7 /CUMM) 0.1 Absolute Basophils (0.0 - 0.2 /CUMM) 0 PUBS MCHC (33.0 - 37.0 G/DL) 33.4 Toxicology Acetone Level (NEGATIVE) NEGATIVE A/P: 52 y/o F with pmh sig for rheumatoid arthritis (on methotrexate and prednisone), history of type 1 diabetes mellitus on insulin pump, history of anxiety depression, history of hypertension and hyperlipidemia, history of chronic pain syndrome admitted with vomiting and bloody diarrhea and found to have diffuse colitis on abdominal imaging. Differential could include inflammatory versus infectious. Currently patient nothing by mouth and getting IV fluids. Appreciate endocrinology input. Insulin has been adjusted. Patient receiving high-dose of steroid as recommended by endocrinology. GI evaluation is pending. Stool studies are pending. Continue the rest of the medications. DVT px; ALPS.
[2017-10-29 18:45] VITALS: BP 160/73
--- NOTE | 2017-10-29 21:27 | Cons- Gastroenterology ---
General Information and HPI Consulting Request Date of Consult: 10/29/17 ([facility]/GASTROENTEROLOGY) Requested By: Ricardo DIAZ,Faith Reason for Consult: Bloody diarrhea Dysphagia Source of Information: patient History of Present Illness: The patient has insulin-dependent diabetes mellitus, and rheumatoid arthritis for which she is on methotrexate and prednisone. She has no antecedent GI history or recurrent symptoms such as heartburn, nausea, indigestion, early satiety, abdominal pain, or regular bowel habits. There is no previous GI bleeding. Her father had colon cancer; she had a colonoscopy 10 years ago. She has had no known liver disease. For the past several weeks the patient has had difficulty with swallowing, pills more than solids more than liquids. She can initiate a swallow but there is an immediate filling of sticking. There's been no regurgitation, vomiting, sialorrhea, nasal regurgitation, cough, or choking. This filling can last for seconds to minutes. She is also had several day-long period of loose bowel movements and nausea. For the past 2 weeks she's had some subjective difficulty with evacuation of bowel movements. Of note there was no antecedent travel, exposure to antibiotics, new medications, or known exposure to ill contacts. The patient has no known cardiac or circulatory problems. 3 nights ago the patient began to develop nausea. Over the past several days, this led to crampy abdominal pain, diarrhea which became bloody, and nausea and vomiting. There was no fever, but there were sweats and chills. She had limited oral intake. Today, at this time she feels better without nausea or pain. She has had small watery/bloody evacuations. Allergies/Medications Allergies: Coded Allergies: NO KNOWN ALLERGIES (10/14/12) Home Med List: Bupropion HCl (Wellbutrin XL) 300 MG TAB.ER.24H 1 TAB PO DAILY DESPRESSION ( Reported) Fluoxetine HCl (Prozac) 40 MG CAPSULE 1 CAP PO DAILY DEPRESSION (Reported) Lisinopril 10 MG TABLET 1 TAB PO DAILY HTN (Reported) Methotrexate Sodium/Pf (Methotrexate 25 MG/Ml Vial) 25 MG/ML VIAL 25 ML IV MONDAYS RA (Reported) Morphine Sulfate (Morphine Sulfate ER) 60 MG TABLET.ER 1 TAB PO TID RA ( Reported) Oxycodone HCl/Acetaminophen (Percocet 10-325 MG Tablet) 10 MG-325 MG TABLET 1 TAB PO TID RA (Reported) Prednisone 5 MG TABLET 1 TAB PO DAILY RA (Reported) Trazodone HCl 100 MG TABLET 1 TAB PO QPM INSOMINIA (Reported) Current Medications: Current Medications Sig/Irving Start time Last Medication Dose Route Stop Time Status Admin Acetaminophen 650 MG Q6P PRN 10/29 0215 AC PO Bupropion HCl 300 MG DAILY 10/29 1000 AC 10/29 PO 1010 Dextrose/Sodium 1,000 ML Q13H 10/29 0215 AC 10/29 Chloride IV 1809 Fluoxetine HCl 40 MG DAILY 10/29 1000 AC 10/29 PO 1010 Hydrocortisone 25 MG DAILY 10/29 1000 AC 10/29 Sodium Succinate IV 1010 Insulin Aspart 0 Q4 10/29 0600 AC 10/29 SC 1901 Insulin Detemir 12 UNITS BID 10/29 1000 AC 10/29 SC 1009 Insulin Detemir 10 UNITS BID 10/29 0345 DC 10/29 SC 0351 Insulin Human Regular 0 Q6 10/29 0600 DC SC Methotrexate 25 MG .[MONDAYS] 10/29 1000 CAN IV Morphine Sulfate 0 .STK-MED ONE 10/29 1752 DC .ROUTE Morphine Sulfate 0 .STK-MED ONE 10/29 1432 DC PO Morphine Sulfate 60 MG Q8 10/29 0600 AC 10/29 PO 1435 Morphine Sulfate 0 .STK-MED ONE 10/29 0511 DC PO Morphine Sulfate 2 MG Q8P PRN 10/29 0245 AC 10/29 IV 1732 Morphine Sulfate 2 MG Q4P PRN 10/29 0215 DC IV Nicotine 0 .STK-MED ONE 10/29 0253 DC TOP Nicotine 21 MG DAILY 10/29 0230 AC 10/29 TOP 0255 Ondansetron HCl 4 MG Q8P PRN 10/29 0515 AC PO Ondansetron HCl 0 .STK-MED ONE 10/28 2225 DC .ROUTE Ondansetron HCl 4 MG ONCE ONE 10/28 2200 DC 10/28 IV 10/28 220 2243 Oxycodone HCl 5 MG Q6P PRN 10/29 0215 DC PO Oxycodone/ 0 .STK-MED ONE 10/29 1858 DC Acetaminophen PO Oxycodone/ 0 .STK-MED ONE 10/29 1011 DC Acetaminophen PO Oxycodone/ 0 .STK-MED ONE 01/15 0253 DC Acetaminophen PO Oxycodone/ 1 TAB Q6P PRN 10/29 0245 AC 10/29 Acetaminophen PO 1900 Prednisone 0 .STK-MED ONE 10/29 0252 DC PO Prednisone 5 MG DAILY 10/29 0215 AC 10/29 PO 0255 Sodium Chloride 1,000 ML BOLUS ONE 10/28 2315 DC 10/28 IV 10/29 0014 2326 Sodium Chloride 1,000 ML BOLUS ONE 10/28 2200 DC 10/29 IV 10/28 2259 0135 Sodium Chloride 1,000 ML BOLUS ONE 10/28 2200 DC 10/28 IV 10/28 2259 2220 Past History Travel History Traveled to [place] past 21 day No Medical History Blood Transfusion Hx: No Neurological: NONE EENT: NONE Cardiovascular: hypertension Respiratory: NONE Gastrointestinal: NONE Hepatic: NONE Renal: NONE Musculoskeletal: RHEMATOID Psychiatric: NONE Endocrine: DM type 1 on insulin pump Blood Disorders: NONE Cancer(s): NONE 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 Psychosocial History Where Do You Live? Home Services at Home: None Smoking Status: Current Everyday Smoker Review of Systems Review of Systems Constitutional: Reports: chills, malaise. Denies: fever. EENTM: Denies: icterus, epistaxis. Cardiovascular: Denies: chest pain, peripheral edema, syncope. Respiratory: Denies: cough, short of breath. GI: Reports: see HPI. Genitourinary: Denies: dysuria, hematuria. Musculoskeletal: Denies: muscle stiffness, neck pain. Skin: Denies: jaundice, lesions. Neurological/Psychological: Denies: cognitive dysfunction, headache. Hematologic/Endocrine: Reports: bleeding. Denies: bruising, polyuria, polydipsia. Exam & Diagnostic Data Vital Signs and I&O Vital Signs Date Time Temp Pulse Resp B/P B/P Pulse O2 O2 Flow FiO2 Mean Ox Delivery Rate 10/29 1845 97.0 61 16 160/73 97 Room Air 10/29 0700 98.6 64 18 134/60 100 Room Air 10/29 0609 98.6 64 18 134/60 100 Room Air 10/29 0400 98.4 80 20 129/64 97 Room Air 10/29 0145 70 18 131/61 96 Room Air 10/28 2335 99.3 67 20 130/62 96 Room Air Intake & Output 10/29 040 Intake Total 2000 Output Total 500 Balance 1500 Intake, IV 2000 Output, Urine 500 Patient 185 lb 185 lb Weight Weight Reported by Patient Measurement Method Physical Exam: Well-developed, well-nourished, in no apparent distress. Alert and oriented with normal cognition. Skin normal without mottling, change in turgor, rash, lesion, jaundice, petechiae. No adenopathy. Sclera anicteric. Oropharynx normal with moist mucous membranes, neck supple without thyromegaly or mass. Heart regular rhythm. Lungs clear. Abdomen is soft and nondistended with normal bowel sounds, and no tenderness, mass or organomegaly. Deformed digits. No edema. Distal pulses intact bilaterally. Results Pertinent Lab Results: Laboratory Tests 10/29 10/29 10/29 10/28 0559 0559 0336 0130 Blood Gas Bicarbonate Actual (22 - 26 MEQ/L) 27 H Mixed VBG pH (7.31 - 7.41 PH) 7.40 Mixed VBG pCO2 (41 - 51 TORR) 45 Mixed VBG O2 Saturation (35 - 45 TORR) 22 L Carboxyhemoglobin (1.5 - 5.0 %) 4.1 O2 Concentration % R/A Chemistry Sodium (137 - 145 mmol/L) 137 Potassium (3.5 - 5.1 mmol/L) 4.5 Chloride (98 - 107 mmol/L) 104 Carbon Dioxide (22 - 30 mmol/L) 20 L Anion Gap (5 - 16) 14 BUN (7 - 17 mg/dL) 21 H Creatinine (0.5 - 1.0 mg/dL) 0.5 Estimated GFR (>60 ml/min) > 60 BUN/Creatinine Ratio (7 - 25 %) 42.0 H Lactic Acid (0.7 - 2.1 mmol/L) 1.1 1.3 TSH (0.270 - 4.200 uIU/mL) 1.120 Free T4 (0.64 - 1.79 ng/dL) 1.53 Total T3 (0.97 - 1.69 ng/mL) 0.58 L Hematology CBC w Diff NO MAN DIFF REQ WBC (4.8 - 10.8 /CUMM) 11.3 H RBC (4.20 - 5.40 /CUMM) 3.54 L Hgb (12.0 - 16.0 G/DL) 11.9 L Hct (37 - 47 %) 35.7 L MCV (81.0 - 99.0 FL) 100.8 H MCH (27.0 - 31.0 PG) 33.6 H RDW (11.5 - 14.5 %) 15.5 H Plt Count (130 - 400 /CUMM) 146 MPV (7.4 - 10.4 FL) 9.1 Gran % (42.2 - 75.2 %) 76.7 H Lymphocytes % (20.5 - 51.1 %) 11.2 L Monocytes % (1.7 - 9.3 %) 10.7 H Eosinophils % (0 - 5 %) 1.0 Basophils % (0.0 - 2.0 %) 0.4 Absolute Granulocytes (1.4 - 6.5 /CUMM) 8.6 H Absolute Lymphocytes (1.2 - 3.4 /CUMM) 1.3 Absolute Monocytes (0.10 - 0.60 /CUMM) 1.2 H Absolute Eosinophils (0.0 - 0.7 /CUMM) 0.1 Absolute Basophils (0.0 - 0.2 /CUMM) 0.1 PUBS MCHC (33.0 - 37.0 G/DL) 33.3 Miscellaneous Phlebotomy Draw Site VENOUS 10/287 Chemistry Sodium (137 - 145 mmol/L) 136 L Potassium (3.5 - 5.1 mmol/L) 4.2 Chloride (98 - 107 mmol/L) 98 Carbon Dioxide (22 - 30 mmol/L) 24 Anion Gap (5 - 16) 14 BUN (7 - 17 mg/dL) 31 H Creatinine (0.5 - 1.0 mg/dL) 0.6 Estimated GFR (>60 ml/min) > 60 BUN/Creatinine Ratio (7 - 25 %) 51.7 H Glucose (65 - 99 mg/dL) 249 H Lactic Acid (0.7 - 2.1 mmol/L) 2.5 H Calcium (8.4 - 10.2 mg/dL) 9.1 Total Bilirubin (0.2 - 1.3 mg/dL) 1.0 Direct Bilirubin (< 0.4 mg/dL) 0.6 H AST (14 - 36 U/L) 17 ALT (9 - 52 U/L) 32 Alkaline Phosphatase (<127 U/L) 71 Troponin I (< 0.11 ng/ml) 0.02 Total Protein (6.3 - 8.2 g/dL) 6.3 Albumin (3.5 - 5.0 g/dL) 3.8 Amylase (30 - 110 U/L) 39 Lipase (23 - 300 U/L) 13 L Coagulation PT (9.4 - 12.5 SEC) 11.8 INR (0.90 - 1.19) 1.13 APTT (25 - 37 SEC) 29 Hematology CBC w Diff NO MAN DIFF REQ WBC (4.8 - 10.8 /CUMM) 14.3 H RBC (4.20 - 5.40 /CUMM) 4.22 Hgb (12.0 - 16.0 G/DL) 14.2 Hct (37 - 47 %) 42.4 MCV (81.0 - 99.0 FL) 100.6 H MCH (27.0 - 31.0 PG) 33.7 H RDW (11.5 - 14.5 %) 15.7 H Plt Count (130 - 400 /CUMM) 185 MPV (7.4 - 10.4 FL) 9.2 Gran % (42.2 - 75.2 %) 80.9 H Lymphocytes % (20.5 - 51.1 %) 8.6 L Monocytes % (1.7 - 9.3 %) 9.9 H Eosinophils % (0 - 5 %) 0.4 Basophils % (0.0 - 2.0 %) 0.2 Absolute Granulocytes (1.4 - 6.5 /CUMM) 11.5 H Absolute Lymphocytes (1.2 - 3.4 /CUMM) 1.2 Absolute Monocytes (0.10 - 0.60 /CUMM) 1.4 H Absolute Eosinophils (0.0 - 0.7 /CUMM) 0.1 Absolute Basophils (0.0 - 0.2 /CUMM) 0 PUBS MCHC (33.0 - 37.0 G/DL) 33.4 Toxicology Acetone Level (NEGATIVE) NEGATIVE Imaging/Other Studies: CT scan: IMPRESSION: 1. There is diffuse wall thickening of the distal transverse colon, splenic flexure and the descending colon. Likely differential considerations include infectious colitis (including C. difficile), inflammatory bowel disease and, less likely, ischemia. Please correlate clinically. 2. No obstruction, free intraperitoneal air or abscess is seen. The vermiform appendix appears normal. 3. There is mild cholelithiasis. 4. Moderate pelvic free fluid is seen. Stool negative for C. difficile toxin. Culture pending. Assessment/Plan Assessment/Recommendations: 1. Bloody diarrhea: Accompanied by nausea, crampy pain, leukocytosis. Imaging confirming the clinical suspicion of colitis. By history, this may have been waxing and waning over the past couple of weeks which would be unusual for an infectious presentation, and would favor idiopathic inflammatory or perhaps ischemic. It has been accompanied by subjective difficulty with evacuation of more recently. Rarer differential diagnosis includes medication-induced, vasculitis in the setting of collagen vascular disease. 2. Dysphagia: This is relatively acute. Structural versus dysmotility. Symptoms favor esophageal over oropharyngeal. 3. Macrocytosis. This may be due to methotrexate. Folic acid is not listed on her home medications. 4. Family history of colon cancer. Overdue for screening colonoscopy. Recommendations * Stool culture, vibrio * Hold on sigmoidoscopy/colonoscopy, for now; will reevaluate within the next 24 to 48 hours * Esophagram, with liquid and solid phases * Check B12, folic acid, RBC folate * Begin clear liquid diet * Anticholinergic (dicyclomine, hyoscyamine) as necessary for pain and diarrhea Copies To: Dhaval DIAZ,Ryann Giang; Anton DIAZ,Singh Brown Consult Acknowledgment - Thank you for your consult request.
[2017-10-29 22:06] VITALS: BP 158/66
[2017-10-29 22:20] VITALS: BP 136/70
[2017-10-30 07:21] VITALS: BP 128/68
--- NOTE | 2017-10-30 08:15 | PN- Housestaff ---
Subjective Follow-up For: GIB Dysphagia Subjective: The patient was seen and examined. She still reports having dysphagia, feeling that food gets stuck in her throat. The patient also reports having crampy abdominal discomfort. She denies any headache, nausea, vomiting, dizziness, lightheadedness, urinary symptoms. She is nothing by mouth pending barium swallow. Review of Systems Constitutional: Reports: see HPI. Objective Last 24 Hrs of Vital Signs/I&O Vital Signs Date Time Temp Pulse Resp B/P B/P Pulse O2 O2 Flow FiO2 Mean Ox Delivery Rate 10/30 1428 97.8 94 20 140/80 94 10/30 0721 97.5 52 20 128/68 95 Room Air 10/29 2220 98.0 55 20 136/70 98 Room Air 10/29 2206 97.5 64 16 158/66 99 Room Air Intake & Output 10/30 1600 10/30 0800 10/30 0000 Intake Total 500 700 315 Output Total 500 Balance 500 200 315 Intake, IV 500 600 75 Intake, Oral 0 100 240 Number 0 Bowel Movements Output, Urine 500 Physical Exam General Appearance: Alert, Oriented X3, Cooperative Skin: No Rashes Neck: Supple Cardiovascular: Regular Rate, Normal S1, Normal S2, No Murmurs, Gallops, Rubs Lungs: Clear to Auscultation, Normal Air Movement Abdomen: Normal Bowel Sounds, Soft, No Hepatospenomegaly, No Masses, Mild generalized tenderness to palpation Neurological: Normal Speech Extremities: No Clubbing, No Cyanosis, No Edema, Normal Pulses, No Tenderness/ Swelling, UE joint deformities noted Current Medications: Current Medications Sig/Irving Start time Last Medication Dose Route Stop Time Status Admin Acetaminophen 650 MG Q6P PRN 10/29 0215 AC PO Bupropion HCl 300 MG DAILY 10/29 1000 AC 10/30 PO 1024 Dextrose 25 GM ONCE 10/30 1300 AC 10/30 IV 1312 Dextrose 25 GM ONCE ONE 10/30 1015 DC 10/30 IV 10/30 1016 1024 Dextrose/Sodium 1,000 ML Q13H 10/29 0215 DC 10/30 Chloride IV 0645 Dicyclomine HCl 20 MG 4 TIMES/DAY PRN 10/30 0100 AC PO Fluoxetine HCl 40 MG DAILY 10/29 1000 AC 10/30 PO 1024 Hydrocortisone 25 MG DAILY 10/29 1000 AC 10/30 Sodium Succinate IV 1024 Insulin Aspart 0 Q4 10/29 0600 AC 10/30 SC 1710 Insulin Detemir 10 UNITS BID 10/30 2200 AC SC Insulin Detemir 12 UNITS BID 10/29 1000 DC 10/29 SC 2239 Morphine Sulfate 60 MG Q8 10/29 0600 AC 10/30 PO 1258 Morphine Sulfate 2 MG Q8P PRN 10/29 0245 10/30 IV 1311 Nicotine 21 MG DAILY 10/29 0230 10/30 TOP 1024 Ondansetron HCl 4 MG Q8P PRN 10/29 0515 AC PO Oxycodone/ 1 TAB Q6P PRN 10/29 0245 10/30 Acetaminophen PO 1717 Potassium Chloride 20 MEQ Q20H 10/30 1530 AC Dextrose/Water 1,000 ML IV Prednisone 5 MG DAILY 10/29 0215 10/30 PO 1024 Trazodone HCl 100 MG AT BEDTIME 10/29 2345 AC 10/29 PO 2344 Last 24 Hrs of Lab/[place] Results Last 24 Hrs of Labs/Mics: Laboratory Tests 10/30/17 0750: RBC Folate Pending 10/30/17 0750: Anion Gap 8, Estimated GFR > 60, BUN/Creatinine Ratio 24.0, Vitamin B12 420, Folate 6.1, CBC w Diff NO MAN DIFF REQ, RBC 3.21 L, MCV 101.8 H, MCH 33.4 H, RDW 15.3 H, MPV 9.1, Gran % 55.8, Lymphocytes % 28.5, Monocytes % 11.2 H, Eosinophils % 4.0, Basophils % 0.5, Absolute Granulocytes 4.5, Absolute Lymphocytes 2.3, Absolute Monocytes 0.9 H, Absolute Eosinophils 0.3, Absolute Basophils 0, PUBS MCHC 32.8 L Microbiology 10/30 0043 STOOL: Vibrio Culture - COLB Assessment/Plan Assessment: adalgisa is a 52-year-old woman with a past medical history significant for rheumatoid arthritis (on methotrexate and prednisone), history of type 1 diabetes mellitus on insulin pump, history of anxiety depression, history of hypertension and hyperlipidemia, history of chronic pain syndrome from rheumatoid arthritis on opiates presented to the ED for evaluation of vomiting and bloody stools. Impression/plan #Vomiting with bright red blood per rectum(likely lower GI bleed/infectious colitis: * GI recommendations appreciated * Hold any antibiotics for now as per GI recommendations. * Continue with IV hydration. * Obtain stool studies including culture , obtain C. difficile * Hold methotrexate for now. * Zofran as needed for nausea and vomiting * Watch for any active signs of bleed. * Watch for any hemodynamic instability. * Hold antihypertensives. * Monitor electrolytes and replete accordingly #Difficulty swallowing * GI consult appreciated * Starts diet pending on the results of Esophagogram #History of hypertension hyperlipidemia * Continue statin hold lisinopril. #Rheumatoid arthritis (on methotrexate and prednisone) * Continue 5 mg of prednisone * Hold methotrexate in the setting of infectious colitis. # history of type 1 diabetes mellitus on insulin pump * On insulin pump at home * Follow endocrine recommendations * Accu-Cheks , #history of anxiety depression * Continue home medications #Chronic pain syndrome due to rheumatoid arthritis(history of opioid dependence) * Continue extended release morphine sulfate 60 mg 3 times a day along with IV morphine for breakthrough pain and Percocet. DVT prophylaxis Alps patient is full code Problem List: 1. Diarrhea 2. Colitis 3. Rectal bleed Pain Ratin Pain Location: Chronic pain sx Pain Goal: Pain 4 or less Pain Plan: IV morphin Percocet Tomorrow's Labs & Rationales: CBC to monitor H&H BEP to monitor electrolytes
[2017-10-30 08:33] LABS: ABSOLUTE BASOPHIL COUNT 0 /CUMM (0.0-0.2); ABSOLUTE EOSINOPHIL COUNT 0.3 /CUMM (0.0-0.7); ABSOLUTE GRANULOCYTE CT 4.5 /CUMM (1.4-6.5); ABSOLUTE LYMPH COUNT 2.3 /CUMM (1.2-3.4); ABSOLUTE MONOCYTE COUNT 0.9 /CUMM (0.10-0.60); BASOPHIL % 0.5 % (0.0-2.0); GRANULOCYTE % 55.8 % (42.2-75.2); HEMATOCRIT 32.7 % (37-47); MEAN CORPUSCULAR HGB 33.4 PG (27.0-31.0); MEAN CORPUSCULAR HGB CONC 32.8 G/DL (33.0-37.0); MEAN CORPUSCULAR VOLUME 101.8 FL (81.0-99.0); MEAN PLATELET VOLUME 9.1 FL (7.4-10.4); RBC DISTRIBUTION WIDTH 15.3 % (11.5-14.5); RED BLOOD CELL CT 3.21 /CUMM (4.20-5.40); WHITE BLOOD CELL COUNT 8.1 /CUMM (4.8-10.8)
[2017-10-30 09:11] LABS: PLATELET COUNT 149 /CUMM (130-400)
--- NOTE | 2017-10-30 12:42 | PN- Diabetes ---
Assessment/Plan Assessment: Patient is a 52-year-old woman with a past medical history significant for rheumatoid arthritis (on methotrexate and prednisone 5 mg daily ), history of type 1 diabetes mellitus on insulin pump, history of anxiety depression, history of hypertension and hyperlipidemia, history of chronic pain syndrome on opiates presented to the ED for evaluation of vomiting and bloody stools. Patient has been having intermittent vomiting with loose watery stools for the last [address] scan showed marked colonic wall thickening involving the distal transverse colon, splenic flexure and the descending colon. She has been kept NPO and is receiving D5 1/2 NS at 75 ml/ hour. She was put on Levemir 12 units twice a day and Novolog coverage every 4 hours. Her FSGs were 112, 131, 193, 150, 244, 100. However, she had glucose level of 58 at lunch time. As she has been prednisone 5 mg daily chronically, stress dose of steroid --- hydrocortisone 25 mg iv daily for now was recommended. Plan: 1. decrease Levemir to 10 units twice a day; 2. adjust Novolog coverage every 4 hours; detail see the inpatient DM order; 3. monitor FSGs. 4. continue stress dose of steroid --- hydrocortisone 25 mg iv daily for now; 5. replete K and monitor electrolytes. will follow. Inpatient Diabetes Orders Every 4 Hours: Bolus Insulin: Novolog < 80 mg/dl: no coverage 80-100 mg/dl: no coverage 101-120 mg/dl: no coverage 121-150 mg/dl: no coverage 151-200 mg/dl: 2 units 201-250 mg/dl: 3 units 251-300 mg/dl: 5 units 301-350 mg/dl: 7 units 351-400 mg/dl: 9 units > 400 mg/dl: 11 units Subjective Subjective: Overall, she feels better. Objective Last 24 Hrs of Vital Signs/I&O Vital Signs Date Time Temp Pulse Resp B/P B/P Pulse O2 O2 Flow FiO2 Mean Ox Delivery Rate 10/30 0721 97.5 52 20 128/68 95 Room Air 10/29 2220 98.0 55 20 136/70 98 Room Air 10/29 2206 97.5 64 16 158/66 99 Room Air 10/29 1845 97.0 61 16 160/73 97 Room Air Intake & Output 10/30 1600 10/30 0800 01/16 0000 Intake Total 700 315 Output Total 500 Balance 200 315 Intake, IV 600 75 Intake, Oral 100 240 Number 0 Bowel Movements Output, Urine 500 Findings Pertinent Lab/South Results: Laboratory Tests 10/30 10/30 10/29 0750 0750 0559 Chemistry Sodium (137 - 145 mmol/L) 141 Potassium (3.5 - 5.1 mmol/L) 3.1 L Chloride (98 - 107 mmol/L) 105 Carbon Dioxide (22 - 30 mmol/L) 28 Anion Gap (5 - 16) 8 BUN (7 - 17 mg/dL) 12 Creatinine (0.5 - 1.0 mg/dL) 0.5 Estimated GFR (>60 ml/min) > 60 BUN/Creatinine Ratio (7 - 25 %) 24.0 Lactic Acid (0.7 - 2.1 mmol/L) 1.1 Vitamin B12 (239 - 931 pg/mL) 420 Folate (2.76 - 20.0 ng/mL) 6.1 RBC Folate Pending Hematology CBC w Diff NO MAN DIFF REQ WBC (4.8 - 10.8 /CUMM) 8.1 RBC (4.20 - 5.40 /CUMM) 3.21 L Hgb (12.0 - 16.0 G/DL) 10.7 L Hct (37 - 47 %) 32.7 L MCV (81.0 - 99.0 FL) 101.8 H MCH (27.0 - 31.0 PG) 33.4 H RDW (11.5 - 14.5 %) 15.3 H Plt Count (130 - 400 /CUMM) 149 MPV (7.4 - 10.4 FL) 9.1 Gran % (42.2 - 75.2 %) 55.8 Lymphocytes % (20.5 - 51.1 %) 28.5 Monocytes % (1.7 - 9.3 %) 11.2 H Eosinophils % (0 - 5 %) 4.0 Basophils % (0.0 - 2.0 %) 0.5 Absolute Granulocytes (1.4 - 6.5 /CUMM) 4.5 Absolute Lymphocytes (1.2 - 3.4 /CUMM) 2.3 Absolute Monocytes (0.10 - 0.60 /CUMM) 0.9 H Absolute Eosinophils (0.0 - 0.7 /CUMM) 0.3 Absolute Basophils (0.0 - 0.2 /CUMM) 0 PUBS MCHC (33.0 - 37.0 G/DL) 32.8 L 10/29 10/29 10/28 0559 2410 9429 Blood Gas Bicarbonate Actual (22 - 26 MEQ/L) 27 H Mixed VBG pH (7.31 - 7.41 PH) 7.40 Mixed VBG pCO2 (41 - 51 TORR) 45 Mixed VBG O2 Saturation (35 - 45 TORR) 22 L Carboxyhemoglobin (1.5 - 5.0 %) 4.1 O2 Concentration % R/A Chemistry Sodium (137 - 145 mmol/L) 137 Potassium (3.5 - 5.1 mmol/L) 4.5 Chloride (98 - 107 mmol/L) 104 Carbon Dioxide (22 - 30 mmol/L) 20 L Anion Gap (5 - 16) 14 BUN (7 - 17 mg/dL) 21 H Creatinine (0.5 - 1.0 mg/dL) 0.5 Estimated GFR (>60 ml/min) > 60 BUN/Creatinine Ratio (7 - 25 %) 42.0 H Lactic Acid (0.7 - 2.1 mmol/L) 1.3 TSH (0.270 - 4.200 uIU/mL) 1.120 Free T4 (0.64 - 1.79 ng/dL) 1.53 Total T3 (0.97 - 1.69 ng/mL) 0.58 L Hematology CBC w Diff NO MAN DIFF REQ WBC (4.8 - 10.8 /CUMM) 11.3 H RBC (4.20 - 5.40 /CUMM) 3.54 L Hgb (12.0 - 16.0 G/DL) 11.9 L Hct (37 - 47 %) 35.7 L MCV (81.0 - 99.0 FL) 100.8 H MCH (27.0 - 31.0 PG) 33.6 H RDW (11.5 - 14.5 %) 15.5 H Plt Count (130 - 400 /CUMM) 146 MPV (7.4 - 10.4 FL) 9.1 Gran % (42.2 - 75.2 %) 76.7 H Lymphocytes % (20.5 - 51.1 %) 11.2 L Monocytes % (1.7 - 9.3 %) 10.7 H Eosinophils % (0 - 5 %) 1.0 Basophils % (0.0 - 2.0 %) 0.4 Absolute Granulocytes (1.4 - 6.5 /CUMM) 8.6 H Absolute Lymphocytes (1.2 - 3.4 /CUMM) 1.3 Absolute Monocytes (0.10 - 0.60 /CUMM) 1.2 H Absolute Eosinophils (0.0 - 0.7 /CUMM) 0.1 Absolute Basophils (0.0 - 0.2 /CUMM) 0.1 PUBS MCHC (33.0 - 37.0 G/DL) 33.3 Miscellaneous Phlebotomy Draw Site VENOUS 10/28 7414 Chemistry Sodium (137 - 145 mmol/L) 136 L Potassium (3.5 - 5.1 mmol/L) 4.2 Chloride (98 - 107 mmol/L) 98 Carbon Dioxide (22 - 30 mmol/L) 24 Anion Gap (5 - 16) 14 BUN (7 - 17 mg/dL) 31 H Creatinine (0.5 - 1.0 mg/dL) 0.6 Estimated GFR (>60 ml/min) > 60 BUN/Creatinine Ratio (7 - 25 %) 51.7 H Glucose (65 - 99 mg/dL) 249 H Lactic Acid (0.7 - 2.1 mmol/L) 2.5 H Calcium (8.4 - 10.2 mg/dL) 9.1 Total Bilirubin (0.2 - 1.3 mg/dL) 1.0 Direct Bilirubin (< 0.4 mg/dL) 0.6 H AST (14 - 36 U/L) 17 ALT (9 - 52 U/L) 32 Alkaline Phosphatase (<127 U/L) 71 Troponin I (< 0.11 ng/ml) 0.02 Total Protein (6.3 - 8.2 g/dL) 6.3 Albumin (3.5 - 5.0 g/dL) 3.8 Amylase (30 - 110 U/L) 39 Lipase (23 - 300 U/L) 13 L Coagulation PT (9.4 - 12.5 SEC) 11.8 INR (0.90 - 1.19) 1.13 APTT (25 - 37 SEC) 29 Hematology CBC w Diff NO MAN DIFF REQ WBC (4.8 - 10.8 /CUMM) 14.3 H RBC (4.20 - 5.40 /CUMM) 4.22 Hgb (12.0 - 16.0 G/DL) 14.2 Hct (37 - 47 %) 42.4 MCV (81.0 - 99.0 FL) 100.6 H MCH (27.0 - 31.0 PG) 33.7 H RDW (11.5 - 14.5 %) 15.7 H Plt Count (130 - 400 /CUMM) 185 MPV (7.4 - 10.4 FL) 9.2 Gran % (42.2 - 75.2 %) 80.9 H Lymphocytes % (20.5 - 51.1 %) 8.6 L Monocytes % (1.7 - 9.3 %) 9.9 H Eosinophils % (0 - 5 %) 0.4 Basophils % (0.0 - 2.0 %) 0.2 Absolute Granulocytes (1.4 - 6.5 /CUMM) 11.5 H Absolute Lymphocytes (1.2 - 3.4 /CUMM) 1.2 Absolute Monocytes (0.10 - 0.60 /CUMM) 1.4 H Absolute Eosinophils (0.0 - 0.7 /CUMM) 0.1 Absolute Basophils (0.0 - 0.2 /CUMM) 0 PUBS MCHC (33.0 - 37.0 G/DL) 33.4 Toxicology Acetone Level (NEGATIVE) NEGATIVE
--- NOTE | 2017-10-30 13:35 | PN- Att Addend ---
Attending Addendum Attending Brief Note Patient seen and examined, feels slightly better today. Pt seen by GI and Esophagogram was recommended. So far tolerating clear liq diet. Vital Signs Date Time Temp Pulse Resp B/P B/P Pulse O2 O2 Flow FiO2 Mean Ox Delivery Rate 10/30 0721 97.5 52 20 128/68 95 Room Air 10/29 2220 98.0 55 20 136/70 98 Room Air 10/29 2206 97.5 64 16 158/66 99 Room Air 10/29 1845 97.0 61 16 160/73 97 Room Air on exam; aox3, nad. cv; s1,s2, rrr resp; clear abd; soft, mild tenderness overall, bs+ ext; no edema. Laboratory Tests 10/30 10/30 0750 0750 Chemistry Sodium (137 - 145 mmol/L) 141 Potassium (3.5 - 5.1 mmol/L) 3.1 L Chloride (98 - 107 mmol/L) 105 Carbon Dioxide (22 - 30 mmol/L) 28 Anion Gap (5 - 16) 8 BUN (7 - 17 mg/dL) 12 Creatinine (0.5 - 1.0 mg/dL) 0.5 Estimated GFR (>60 ml/min) > 60 BUN/Creatinine Ratio (7 - 25 %) 24.0 Vitamin B12 (239 - 931 pg/mL) 420 Folate (2.76 - 20.0 ng/mL) 6.1 RBC Folate Pending Hematology CBC w Diff NO MAN DIFF REQ WBC (4.8 - 10.8 /CUMM) 8.1 RBC (4.20 - 5.40 /CUMM) 3.21 L Hgb (12.0 - 16.0 G/DL) 10.7 L Hct (37 - 47 %) 32.7 L MCV (81.0 - 99.0 FL) 101.8 H MCH (27.0 - 31.0 PG) 33.4 H RDW (11.5 - 14.5 %) 15.3 H Plt Count (130 - 400 /CUMM) 149 MPV (7.4 - 10.4 FL) 9.1 Gran % (42.2 - 75.2 %) 55.8 Lymphocytes % (20.5 - 51.1 %) 28.5 Monocytes % (1.7 - 9.3 %) 11.2 H Eosinophils % (0 - 5 %) 4.0 Basophils % (0.0 - 2.0 %) 0.5 Absolute Granulocytes (1.4 - 6.5 /CUMM) 4.5 Absolute Lymphocytes (1.2 - 3.4 /CUMM) 2.3 Absolute Monocytes (0.10 - 0.60 /CUMM) 0.9 H Absolute Eosinophils (0.0 - 0.7 /CUMM) 0.3 Absolute Basophils (0.0 - 0.2 /CUMM) 0 PUBS MCHC (33.0 - 37.0 G/DL) 32.8 L A/P; 52 y/o F with pmh sig for rheumatoid arthritis (on methotrexate and prednisone), history of type 1 diabetes mellitus on insulin pump, history of anxiety depression, history of hypertension and hyperlipidemia, history of chronic pain syndrome admitted with vomiting and bloody diarrhea and found to have diffuse colitis on abdominal imaging. Differential could include inflammatory versus infectious or ischemic. Patient going for esophagogram, will follow results. Will follow stool cx. Insulin mx per endo. Tolerating clears so far, can resume after the test. If Esophagogram results are not significant, can likley advance diet slowly as patient tolerates. Continue the rest of meds. DVT px; ALPS.
[2017-10-30 14:28] VITALS: BP 140/80
--- NOTE | 2017-10-30 14:38 | PN- Gastroenterology ---
Assessment/Plan Assessment/Recommendations: 1. Bloody diarrhea: Accompanied by nausea, crampy pain, leukocytosis. Imaging confirming the clinical suspicion of colitis. Clinically improved. 2. Dysphagia: This is relatively acute. Structural versus dysmotility. Symptoms favor esophageal over oropharyngeal. 3. Macrocytosis. This may be due to methotrexate. Folic acid is not listed on her home medications. Normal B12. 4. Family history of colon cancer. Overdue for screening colonoscopy. Recommendations * Stool culture, vibrio when can supply sample * Hold on sigmoidoscopy/colonoscopy, for now; will reevaluate within the next 24 hours * Await esophagram, with liquid and solid phases * Await RBC folate * After esophagram, advance to full liquid diet * Anticholinergic (dicyclomine, hyoscyamine) as necessary for pain and diarrhea Subjective Subjective: No abdominal pain, nausea, bowel movements, blood per rectum. Feeling much better. Objective Vital Signs and I&Os Vital Signs Date Time Temp Pulse Resp B/P B/P Pulse O2 O2 Flow FiO2 Mean Ox Delivery Rate 10/30 1428 97.8 94 20 140/80 94 10/30 0721 97.5 52 20 128/68 95 Room Air 10/29 2220 98.0 55 20 136/70 98 Room Air 10/29 2206 97.5 64 16 158/66 99 Room Air 10/29 1845 97.0 61 16 160/73 97 Room Air Intake & Output 10/30 1600 10/30 0400 10/29 1600 10/29 0400 10/28 1600 10/28 0400 Intake Total 669 463 7958 Output Total 500 500 Balance 610 483 8358 Intake, IV 333 32 7966 Intake, Oral 100 240 Number 0 Bowel Movements Output, Urine 500 500 Patient 185 lb 185 lb Weight Weight Reported by Patient Measurement Method Physical Exam: Abdomen nondistended, soft, nontender. Current Medications: Current Medications Sig/Irving Start time Last Medication Dose Route Stop Time Status Admin Acetaminophen 650 MG Q6P PRN 10/29 0215 AC PO Bupropion HCl 300 MG DAILY 10/29 1000 AC 10/30 PO 1024 Dextrose 25 GM ONCE 10/30 1300 AC 10/30 IV 1312 Dextrose 25 GM ONCE ONE 10/30 1015 DC 10/30 IV 10/30 1016 1024 Dextrose/Sodium 1,000 ML Q13H 10/29 0215 AC 10/30 Chloride IV 0645 Dicyclomine HCl 20 MG 4 TIMES/DAY PRN 10/30 0100 AC PO Fluoxetine HCl 40 MG DAILY 10/29 1000 AC 10/30 PO 1024 Hydrocortisone 25 MG DAILY 10/29 1000 AC 10/30 Sodium Succinate IV 1024 Insulin Aspart 0 Q4 10/29 0600 AC 10/30 SC 0223 Insulin Detemir 10 UNITS BID 10/30 2200 AC SC Insulin Detemir 12 UNITS BID 10/29 1000 DC 10/29 SC 2239 Morphine Sulfate 0 .STK-MED ONE 10/29 1752 DC .ROUTE Morphine Sulfate 60 MG Q8 10/29 0600 AC 10/30 PO 1258 Morphine Sulfate 2 MG Q8P PRN 10/29 0245 AC 10/30 IV 1311 Nicotine 21 MG DAILY 10/29 0230 10/30 TOP 1024 Ondansetron HCl 4 MG Q8P PRN 10/29 0515 AC PO Oxycodone/ 0 .STK-MED ONE 10/29 1858 DC Acetaminophen PO Oxycodone/ 1 TAB Q6P PRN 10/29 0245 10/30 Acetaminophen PO 0223 Prednisone 5 MG DAILY 10/29 0215 AC 10/30 PO 1024 Trazodone HCl 100 MG AT BEDTIME 10/29 2345 AC 10/29 PO 2344 Results Pertinent Lab Results: Laboratory Tests 10/30 10/30 10/29 0750 0750 0559 Chemistry Sodium (137 - 145 mmol/L) 141 Potassium (3.5 - 5.1 mmol/L) 3.1 L Chloride (98 - 107 mmol/L) 105 Carbon Dioxide (22 - 30 mmol/L) 28 Anion Gap (5 - 16) 8 BUN (7 - 17 mg/dL) 12 Creatinine (0.5 - 1.0 mg/dL) 0.5 Estimated GFR (>60 ml/min) > 60 BUN/Creatinine Ratio (7 - 25 %) 24.0 Lactic Acid (0.7 - 2.1 mmol/L) 1.1 Vitamin B12 (239 - 931 pg/mL) 420 Folate (2.76 - 20.0 ng/mL) 6.1 RBC Folate Pending Hematology CBC w Diff NO MAN DIFF REQ WBC (4.8 - 10.8 /CUMM) 8.1 RBC (4.20 - 5.40 /CUMM) 3.21 L Hgb (12.0 - 16.0 G/DL) 10.7 L Hct (37 - 47 %) 32.7 L MCV (81.0 - 99.0 FL) 101.8 H MCH (27.0 - 31.0 PG) 33.4 H RDW (11.5 - 14.5 %) 15.3 H Plt Count (130 - 400 /CUMM) 149 MPV (7.4 - 10.4 FL) 9.1 Gran % (42.2 - 75.2 %) 55.8 Lymphocytes % (20.5 - 51.1 %) 28.5 Monocytes % (1.7 - 9.3 %) 11.2 H Eosinophils % (0 - 5 %) 4.0 Basophils % (0.0 - 2.0 %) 0.5 Absolute Granulocytes (1.4 - 6.5 /CUMM) 4.5 Absolute Lymphocytes (1.2 - 3.4 /CUMM) 2.3 Absolute Monocytes (0.10 - 0.60 /CUMM) 0.9 H Absolute Eosinophils (0.0 - 0.7 /CUMM) 0.3 Absolute Basophils (0.0 - 0.2 /CUMM) 0 PUBS MCHC (33.0 - 37.0 G/DL) 32.8 L 10/29 10/29 10/28 0559 0330 0646 Blood Gas Bicarbonate Actual (22 - 26 MEQ/L) 27 H Mixed VBG pH (7.31 - 7.41 PH) 7.40 Mixed VBG pCO2 (41 - 51 TORR) 45 Mixed VBG O2 Saturation (35 - 45 TORR) 22 L Carboxyhemoglobin (1.5 - 5.0 %) 4.1 O2 Concentration % R/A Chemistry Sodium (137 - 145 mmol/L) 137 Potassium (3.5 - 5.1 mmol/L) 4.5 Chloride (98 - 107 mmol/L) 104 Carbon Dioxide (22 - 30 mmol/L) 20 L Anion Gap (5 - 16) 14 BUN (7 - 17 mg/dL) 21 H Creatinine (0.5 - 1.0 mg/dL) 0.5 Estimated GFR (>60 ml/min) > 60 BUN/Creatinine Ratio (7 - 25 %) 42.0 H Lactic Acid (0.7 - 2.1 mmol/L) 1.3 TSH (0.270 - 4.200 uIU/mL) 1.120 Free T4 (0.64 - 1.79 ng/dL) 1.53 Total T3 (0.97 - 1.69 ng/mL) 0.58 L Hematology CBC w Diff NO MAN DIFF REQ WBC (4.8 - 10.8 /CUMM) 11.3 H RBC (4.20 - 5.40 /CUMM) 3.54 L Hgb (12.0 - 16.0 G/DL) 11.9 L Hct (37 - 47 %) 35.7 L MCV (81.0 - 99.0 FL) 100.8 H MCH (27.0 - 31.0 PG) 33.6 H RDW (11.5 - 14.5 %) 15.5 H Plt Count (130 - 400 /CUMM) 146 MPV (7.4 - 10.4 FL) 9.1 Gran % (42.2 - 75.2 %) 76.7 H Lymphocytes % (20.5 - 51.1 %) 11.2 L Monocytes % (1.7 - 9.3 %) 10.7 H Eosinophils % (0 - 5 %) 1.0 Basophils % (0.0 - 2.0 %) 0.4 Absolute Granulocytes (1.4 - 6.5 /CUMM) 8.6 H Absolute Lymphocytes (1.2 - 3.4 /CUMM) 1.3 Absolute Monocytes (0.10 - 0.60 /CUMM) 1.2 H Absolute Eosinophils (0.0 - 0.7 /CUMM) 0.1 Absolute Basophils (0.0 - 0.2 /CUMM) 0.1 PUBS MCHC (33.0 - 37.0 G/DL) 33.3 Miscellaneous Phlebotomy Draw Site VENOUS 10/28 2137 Chemistry Sodium (137 - 145 mmol/L) 136 L Potassium (3.5 - 5.1 mmol/L) 4.2 Chloride (98 - 107 mmol/L) 98 Carbon Dioxide (22 - 30 mmol/L) 24 Anion Gap (5 - 16) 14 BUN (7 - 17 mg/dL) 31 H Creatinine (0.5 - 1.0 mg/dL) 0.6 Estimated GFR (>60 ml/min) > 60 BUN/Creatinine Ratio (7 - 25 %) 51.7 H Glucose (65 - 99 mg/dL) 249 H Lactic Acid (0.7 - 2.1 mmol/L) 2.5 H Calcium (8.4 - 10.2 mg/dL) 9.1 Total Bilirubin (0.2 - 1.3 mg/dL) 1.0 Direct Bilirubin (< 0.4 mg/dL) 0.6 H AST (14 - 36 U/L) 17 ALT (9 - 52 U/L) 32 Alkaline Phosphatase (<127 U/L) 71 Troponin I (< 0.11 ng/ml) 0.02 Total Protein (6.3 - 8.2 g/dL) 6.3 Albumin (3.5 - 5.0 g/dL) 3.8 Amylase (30 - 110 U/L) 39 Lipase (23 - 300 U/L) 13 L Coagulation PT (9.4 - 12.5 SEC) 11.8 INR (0.90 - 1.19) 1.13 APTT (25 - 37 SEC) 29 Hematology CBC w Diff NO MAN DIFF REQ WBC (4.8 - 10.8 /CUMM) 14.3 H RBC (4.20 - 5.40 /CUMM) 4.22 Hgb (12.0 - 16.0 G/DL) 14.2 Hct (37 - 47 %) 42.4 MCV (81.0 - 99.0 FL) 100.6 H MCH (27.0 - 31.0 PG) 33.7 H RDW (11.5 - 14.5 %) 15.7 H Plt Count (130 - 400 /CUMM) 185 MPV (7.4 - 10.4 FL) 9.2 Gran % (42.2 - 75.2 %) 80.9 H Lymphocytes % (20.5 - 51.1 %) 8.6 L Monocytes % (1.7 - 9.3 %) 9.9 H Eosinophils % (0 - 5 %) 0.4 Basophils % (0.0 - 2.0 %) 0.2 Absolute Granulocytes (1.4 - 6.5 /CUMM) 11.5 H Absolute Lymphocytes (1.2 - 3.4 /CUMM) 1.2 Absolute Monocytes (0.10 - 0.60 /CUMM) 1.4 H Absolute Eosinophils (0.0 - 0.7 /CUMM) 0.1 Absolute Basophils (0.0 - 0.2 /CUMM) 0 PUBS MCHC (33.0 - 37.0 G/DL) 33.4 Toxicology Acetone Level (NEGATIVE) NEGATIVE
--- NOTE | 2017-10-30 16:42 | RADIOLOGY REPORT ---
EXAMINATION: XR BARIUM SWALLOW/ESOPHAGRAM CLINICAL INFORMATION: Dysphagia. COMPARISON: None. TECHNIQUE: Double contrast barium swallow study. FINDINGS: The cervical, thoracic esophagus appear normal in position, shape, outline, show normal distensibility, normal peristalsis and no evidence of obstruction to the flow of liquid barium as well as to 12.5 mm barium pill. Intermittent minimal gastroesophageal reflux is noted localized to the distal one third of the thoracic esophagus without any underlying ulceration or stricture formation. No definite evidence of any hiatal hernia visualized. FLUOROSCOPY TIME: 7 minutes 39 seconds. NUMBER OF IMAGES: 15 series. IMPRESSION: Minimal intermittent gastroesophageal reflux localized to the distal one third of the thoracic esophagus, otherwise unremarkable double contrast barium swallow study.
[2017-10-30 22:47] VITALS: BP 142/80
[2017-10-31 06:15] VITALS: BP 134/76
--- NOTE | 2017-10-31 07:32 | PN- Housestaff ---
Rose Mak 10/31/17 0732: Subjective Follow-up For: GIB Dysphagia Complaints: no complaints Subjective: Patient was seen and examined this morning. She was lying comfortably in bed without any complaints. She is able to tolerate clear liquids and we will advance it to full liquids. She remained hemodynamically stable. She has no bowel movement today. Review of Systems Constitutional: Denies: chills, diaphoresis, fever. Cardiovascular: Denies: chest pain, edema, orthopena. Respiratory: Denies: hemoptysis, orthopnea. Gastrointestinal: Denies: diarrhea, distention, bowel incontinence. Genitourinary: Denies: discharge, frequency, hematuria. Objective Last 24 Hrs of Vital Signs/I&O Vital Signs Date Time Temp Pulse Resp B/P B/P Pulse O2 O2 Flow FiO2 Mean Ox Delivery Rate 10/31 06 98.5 84 20 134/76 95 Room Air 10/30 2247 98.1 90 20 142/80 96 Room Air 10/30 1428 97.8 94 20 140/80 94 Intake & Output 10/31 1600 10/31 0800 10/31 0000 Intake Total 880 590 Output Total 600 Balance 280 590 Intake, IV 400 450 Intake, Oral 480 140 Output, Urine 600 Physical Exam General Appearance: Alert, Oriented X3, Cooperative, No Acute Distress Cardiovascular: Regular Rate, Normal S1, Normal S2 Lungs: Normal Air Movement Abdomen: Soft, No Tenderness Current Medications: Current Medications Sig/Irving Start time Last Medication Dose Route Stop Time Status Admin Acetaminophen 650 MG Q6P PRN 10/29 0215 AC PO Bupropion HCl 300 MG DAILY 10/29 1000 AC 10/31 PO 0953 Dextrose 25 GM ONCE 10/30 1300 AC 10/30 IV 1312 Dextrose/Sodium 1,000 ML Q13H 10/29 0215 DC 10/30 Chloride IV 0645 Dicyclomine HCl 20 MG 4 TIMES/DAY PRN 10/30 0100 AC PO Fluoxetine HCl 40 MG DAILY 10/29 1000 AC 10/31 PO 0953 Hydrocortisone 25 MG DAILY 10/29 1000 AC 10/31 Sodium Succinate IV 0955 Insulin Aspart 0 Q4 10/29 0600 AC 10/31 SC 0211 Insulin Detemir 10 UNITS BID 10/30 2200 AC 10/31 SC 0954 Insulin Detemir 12 UNITS BID 10/29 1000 DC 10/29 SC 2239 Morphine Sulfate 60 MG Q8 10/29 0600 AC 10/31 PO 0628 Morphine Sulfate 2 MG Q8P PRN 10/29 0245 AC 10/31 IV 0953 Nicotine 21 MG DAILY 10/29 0230 10/31 TOP 0953 Omeprazole 40 MG DAILY AC 10/31 1100 AC PO Ondansetron HCl 4 MG Q8P PRN 10/29 0515 AC PO Oxycodone/ 1 TAB Q6P PRN 10/29 0245 AC 10/31 Acetaminophen PO 0741 Potassium Chloride 60 MEQ ONCE ONE 10/31 1200 DC PO 10/31 1201 Potassium Chloride 20 MEQ Q20H 10/30 1530 AC 10/30 Dextrose/Water 1,000 ML IV 2249 Prednisone 5 MG DAILY 10/29 0215 AC 10/31 PO 0952 Trazodone HCl 100 MG AT BEDTIME 10/29 2345 10/30 PO 2219 Last 24 Hrs of Lab/[place] Results Last 24 Hrs of Labs/Mics: Laboratory Tests 10/31/17 0815: Anion Gap 8, Estimated GFR > 60, BUN/Creatinine Ratio 12.0, CBC w Diff NO MAN DIFF REQ, RBC 3.31 L, MCV 101.0 H, MCH 33.5 H, RDW 15.1 H, MPV 8.8, Gran % 61.6, Lymphocytes % 26.3, Monocytes % 9.5 H, Eosinophils % 2.2, Basophils % 0.4 , Absolute Granulocytes 3.9, Absolute Lymphocytes 1.7, Absolute Monocytes 0.6, Absolute Eosinophils 0.1, Absolute Basophils 0, PUBS MCHC 33.2 Assessment/Plan Assessment: adalgisa is a 52-year-old woman with a past medical history significant for rheumatoid arthritis (on methotrexate and prednisone), history of type 1 diabetes mellitus on insulin pump, history of anxiety depression, history of hypertension and hyperlipidemia, history of chronic pain syndrome from rheumatoid arthritis on opiates presented to the ED for evaluation of vomiting and bloody stools. Impression/plan #Vomiting with bright red blood per rectum(likely lower GI bleed/infectious colitis: * GI recommendations appreciated * Hold any antibiotics for now as per GI recommendations. * Continue with IV hydration. * Obtain stool studies including culture , obtain C. difficile * Hold methotrexate for now. * Zofran as needed for nausea and vomiting * Watch for any active signs of bleed. * Watch for any hemodynamic instability. #Difficulty swallowing * GI consult appreciated * Esophagogram showed acid reflux but no motility disorder. We will start her on PPI and advance her diet to full liquids. #History of hypertension hyperlipidemia * Continue statin and we will resume her home dose of lisinopril. #Rheumatoid arthritis (on methotrexate and prednisone) * Patient was started on stress dose of hydrocortisone 25 mg daily she received 3 doses and also she was on 5 mg of prednisone which was her home dose. Will DC hydrocortisone from tomorrow and will increase the dose of prednisone to 10 mg and we will resume her home dose of prednisone on discharge. * Hold methotrexate in the setting of infectious colitis. # history of type 1 diabetes mellitus on insulin pump * On insulin pump at home * Follow endocrine recommendations * Accu-Cheks , #history of anxiety depression * Continue home medications #Chronic pain syndrome due to rheumatoid arthritis(history of opioid dependence) * Continue extended release morphine sulfate 60 mg 3 times a day along with IV morphine for breakthrough pain and Percocet. DVT prophylaxis Alps patient is full code Problem List: 1. Colitis Pain Ratin Pain Location: na Pain Goal: Remain pain free Pain Plan: tylenol Tomorrow's Labs & Rationales: cbc and bep Rigoberto DIAZ,Arabella 10/31/17 1144: Attending MD Review Statement Attending Statement Attending MD Statement: examined this patient, discuss w/resident/PA/[employer], agreed w/resident/PA/[employer], reviewed EMR data (avail), discussed with nursing, discussed with case mgmt, reviewed images, amended to note Attending Assessment/Plan: Patient seen and examined, overall feeling better. Esophagogram done yesterday shows the following findings>> Minimal intermittent gastroesophageal reflux localized to the distal one third of the thoracic esophagus, otherwise unremarkable double contrast barium swallow study. Vital Signs Date Time Temp Pulse Resp B/P B/P Pulse O2 O2 Flow FiO2 Mean Ox Delivery Rate 10/31 0615 98.5 84 20 134/76 95 Room Air 10/30 2247 98.1 90 20 142/80 96 Room Air 10/30 1428 97.8 94 20 140/80 94 on exam; aox3, nad. cv; s1,s2, rrr resp; clear abd; soft, nt, bs+ ext; no edema Laboratory Tests 10/31 0815 Chemistry Sodium (137 - 145 mmol/L) 140 Potassium (3.5 - 5.1 mmol/L) 3.2 L Chloride (98 - 107 mmol/L) 102 Carbon Dioxide (22 - 30 mmol/L) 31 H Anion Gap (5 - 16) 8 BUN (7 - 17 mg/dL) 6 L Creatinine (0.5 - 1.0 mg/dL) 0.5 Estimated GFR (>60 ml/min) > 60 BUN/Creatinine Ratio (7 - 25 %) 12.0 Hematology CBC w Diff NO MAN DIFF REQ WBC (4.8 - 10.8 /CUMM) 6.3 RBC (4.20 - 5.40 /CUMM) 3.31 L Hgb (12.0 - 16.0 G/DL) 11.1 L Hct (37 - 47 %) 33.4 L MCV (81.0 - 99.0 FL) 101.0 H MCH (27.0 - 31.0 PG) 33.5 H RDW (11.5 - 14.5 %) 15.1 H Plt Count (130 - 400 /CUMM) 146 MPV (7.4 - 10.4 FL) 8.8 Gran % (42.2 - 75.2 %) 61.6 Lymphocytes % (20.5 - 51.1 %) 26.3 Monocytes % (1.7 - 9.3 %) 9.5 H Eosinophils % (0 - 5 %) 2.2 Basophils % (0.0 - 2.0 %) 0.4 Absolute Granulocytes (1.4 - 6.5 /CUMM) 3.9 Absolute Lymphocytes (1.2 - 3.4 /CUMM) 1.7 Absolute Monocytes (0.10 - 0.60 /CUMM) 0.6 Absolute Eosinophils (0.0 - 0.7 /CUMM) 0.1 Absolute Basophils (0.0 - 0.2 /CUMM) 0 PUBS MCHC (33.0 - 37.0 G/DL) 33.2 A/P: 52 y/o F with pmh sig for rheumatoid arthritis (on methotrexate and prednisone), history of type 1 diabetes mellitus on insulin pump, history of anxiety depression, history of hypertension and hyperlipidemia, history of chronic pain syndrome admitted with vomiting and bloody diarrhea and found to have diffuse colitis on abdominal imaging. Differential could include inflammatory versus infectious or ischemic. Esophagogram results are dictated as above. Patient will be started on PPI. Will advance diet to full liquids today and advance to solid in the morning if she continues to tolerate. Patient has been watched off of antibiotics. Has not had a bowel movement to provide for the stool cultures. Insulin management per endocrinology. DVT px; ALPS. Possible discharge tomorrow.
[2017-10-31 08:50] LABS: ABSOLUTE BASOPHIL COUNT 0 /CUMM (0.0-0.2); ABSOLUTE EOSINOPHIL COUNT 0.1 /CUMM (0.0-0.7); ABSOLUTE GRANULOCYTE CT 3.9 /CUMM (1.4-6.5); ABSOLUTE LYMPH COUNT 1.7 /CUMM (1.2-3.4); ABSOLUTE MONOCYTE COUNT 0.6 /CUMM (0.10-0.60); BASOPHIL % 0.4 % (0.0-2.0); EOSINOPHIL % 2.2 % (0-5); GRANULOCYTE % 61.6 % (42.2-75.2); HEMATOCRIT 33.4 % (37-47); MEAN CORPUSCULAR HGB 33.5 PG (27.0-31.0); MEAN CORPUSCULAR HGB CONC 33.2 G/DL (33.0-37.0); MEAN PLATELET VOLUME 8.8 FL (7.4-10.4); PLATELET COUNT 146 /CUMM (130-400); RBC DISTRIBUTION WIDTH 15.1 % (11.5-14.5); RED BLOOD CELL CT 3.31 /CUMM (4.20-5.40); WHITE BLOOD CELL COUNT 6.3 /CUMM (4.8-10.8)
[2017-10-31 14:49] VITALS: BP 140/78
--- NOTE | 2017-10-31 15:19 | PN- Gastroenterology ---
Assessment/Plan Assessment/Recommendations: 1. Bloody diarrhea/colitis: Seemingly in resolution. Stool culture and C. difficile toxin were negative. 2. Dysphagia: Unrevealing esophagram except for evidence of gastroesophageal reflux. 3. Macrocytosis. This may be due to methotrexate. Folic acid is not listed on her home medications. Normal B12. 4. Family history of colon cancer. Overdue for screening colonoscopy. Recommendations * Advance to low fiber diet * Await RBC folate * Outpatient EGD/colonoscopy. This has been discussed with the patient. * Anticipate discharge (from a GI standpoint) tomorrow; will follow-up with me in my office in approximately 2 weeks. * Folate acid 2 milligrams by mouth daily Thank you very much for allowing my participation in this patient's care. Please call or reconsult as needed during this hospitalization. Subjective Subjective: The patient denies nausea, vomiting, abdominal pain, blood per rectum. She has not had a bowel movement. She is tolerating a full liquid diet, without dysphagia. Objective Vital Signs and I&Os Vital Signs Date Time Temp Pulse Resp B/P B/P Pulse O2 O2 Flow FiO2 Mean Ox Delivery Rate 10/31 1449 99.2 72 20 140/78 94 10/31 0615 98.5 84 20 134/76 95 Room Air 10/30 2247 98.1 90 20 142/80 96 Room Air Intake & Output 10/31 1600 10/31 0400 10/30 1600 10/30 0400 10/29 1600 10/29 0400 Intake Total 567 296 5231 315 2000 Output Total 600 500 500 Balance 280 590 150 005 6042 Intake, IV 885 333 3844 75 2000 Intake, Oral 480 140 100 240 Number 0 Bowel Movements Output, Urine 600 500 500 Patient 185 lb 185 lb Weight Weight Reported by Patient Measurement Method Physical Exam: Head and neck normal. No adenopathy. No icterus. Abdomen soft, nondistended, nontender. Current Medications: Current Medications Sig/Irving Start time Last Medication Dose Route Stop Time Status Admin Acetaminophen 650 MG Q6P PRN 10/29 0215 AC PO Bupropion HCl 300 MG DAILY 10/29 1000 AC 10/31 PO 0953 Dextrose 25 GM ONCE 10/30 1300 AC 10/30 IV 1312 Dextrose/Sodium 1,000 ML Q13H 10/29 0215 DC 10/30 Chloride IV 0645 Dicyclomine HCl 20 MG 4 TIMES/DAY PRN 10/30 0100 AC PO Fluoxetine HCl 40 MG DAILY 10/29 1000 AC 10/31 PO 0953 Hydrocortisone 25 MG DAILY 10/29 1000 DC 10/31 Sodium Succinate IV 0955 Insulin Aspart 0 Q4 10/29 0600 AC 10/31 SC 1458 Insulin Detemir 10 UNITS BID 10/30 2200 AC 10/31 SC 0954 Lisinopril 10 MG DAILY 10/31 1219 AC 10/31 PO 1347 Morphine Sulfate 60 MG Q8 10/29 0600 AC 10/31 PO 1347 Morphine Sulfate 2 MG Q8P PRN 10/29 0245 10/31 IV 0953 Nicotine 21 MG DAILY 10/29 0230 10/31 TOP 0953 Omeprazole 40 MG DAILY AC 10/31 1100 AC 10/31 PO 1347 Ondansetron HCl 4 MG Q8P PRN 10/29 0515 AC PO Oxycodone/ 1 TAB Q6P PRN 10/29 0245 10/31 Acetaminophen PO 1347 Potassium Chloride 60 MEQ ONCE ONE 10/31 1200 DC PO 10/31 1201 Potassium Chloride 20 MEQ Q20H 10/30 1530 AC 10/31 Dextrose/Water 1,000 ML IV 1349 Prednisone 10 MG DAILY 11/01 1000 AC PO Prednisone 5 MG DAILY 10/29 0215 DC 10/31 PO 0952 Trazodone HCl 100 MG AT BEDTIME 10/29 2345 10/30 PO 2219 Results Pertinent Lab Results: Laboratory Tests 10/31 10/30 0815 0750 Chemistry Sodium (137 - 145 mmol/L) 140 Potassium (3.5 - 5.1 mmol/L) 3.2 L Chloride (98 - 107 mmol/L) 102 Carbon Dioxide (22 - 30 mmol/L) 31 H Anion Gap (5 - 16) 8 BUN (7 - 17 mg/dL) 6 L Creatinine (0.5 - 1.0 mg/dL) 0.5 Estimated GFR (>60 ml/min) > 60 BUN/Creatinine Ratio (7 - 25 %) 12.0 RBC Folate Pending Hematology CBC w Diff NO MAN DIFF REQ WBC (4.8 - 10.8 /CUMM) 6.3 RBC (4.20 - 5.40 /CUMM) 3.31 L Hgb (12.0 - 16.0 G/DL) 11.1 L Hct (37 - 47 %) 33.4 L MCV (81.0 - 99.0 FL) 101.0 H MCH (27.0 - 31.0 PG) 33.5 H RDW (11.5 - 14.5 %) 15.1 H Plt Count (130 - 400 /CUMM) 146 MPV (7.4 - 10.4 FL) 8.8 Gran % (42.2 - 75.2 %) 61.6 Lymphocytes % (20.5 - 51.1 %) 26.3 Monocytes % (1.7 - 9.3 %) 9.5 H Eosinophils % (0 - 5 %) 2.2 Basophils % (0.0 - 2.0 %) 0.4 Absolute Granulocytes (1.4 - 6.5 /CUMM) 3.9 Absolute Lymphocytes (1.2 - 3.4 /CUMM) 1.7 Absolute Monocytes (0.10 - 0.60 /CUMM) 0.6 Absolute Eosinophils (0.0 - 0.7 /CUMM) 0.1 Absolute Basophils (0.0 - 0.2 /CUMM) 0 PUBS MCHC (33.0 - 37.0 G/DL) 33.2 10/30 10/29 0750 0559 Chemistry Sodium (137 - 145 mmol/L) 141 Potassium (3.5 - 5.1 mmol/L) 3.1 L Chloride (98 - 107 mmol/L) 105 Carbon Dioxide (22 - 30 mmol/L) 28 Anion Gap (5 - 16) 8 BUN (7 - 17 mg/dL) 12 Creatinine (0.5 - 1.0 mg/dL) 0.5 Estimated GFR (>60 ml/min) > 60 BUN/Creatinine Ratio (7 - 25 %) 24.0 Lactic Acid (0.7 - 2.1 mmol/L) 1.1 Vitamin B12 (239 - 931 pg/mL) 420 Folate (2.76 - 20.0 ng/mL) 6.1 Hematology CBC w Diff NO MAN DIFF REQ WBC (4.8 - 10.8 /CUMM) 8.1 RBC (4.20 - 5.40 /CUMM) 3.21 L Hgb (12.0 - 16.0 G/DL) 10.7 L Hct (37 - 47 %) 32.7 L MCV (81.0 - 99.0 FL) 101.8 H MCH (27.0 - 31.0 PG) 33.4 H RDW (11.5 - 14.5 %) 15.3 H Plt Count (130 - 400 /CUMM) 149 MPV (7.4 - 10.4 FL) 9.1 Gran % (42.2 - 75.2 %) 55.8 Lymphocytes % (20.5 - 51.1 %) 28.5 Monocytes % (1.7 - 9.3 %) 11.2 H Eosinophils % (0 - 5 %) 4.0 Basophils % (0.0 - 2.0 %) 0.5 Absolute Granulocytes (1.4 - 6.5 /CUMM) 4.5 Absolute Lymphocytes (1.2 - 3.4 /CUMM) 2.3 Absolute Monocytes (0.10 - 0.60 /CUMM) 0.9 H Absolute Eosinophils (0.0 - 0.7 /CUMM) 0.3 Absolute Basophils (0.0 - 0.2 /CUMM) 0 PUBS MCHC (33.0 - 37.0 G/DL) 32.8 L 10/29 10/29 10/28 0559 0336 2210 Blood Gas Bicarbonate Actual (22 - 26 MEQ/L) 27 H Mixed VBG pH (7.31 - 7.41 PH) 7.40 Mixed VBG pCO2 (41 - 51 TORR) 45 Mixed VBG O2 Saturation (35 - 45 TORR) 22 L Carboxyhemoglobin (1.5 - 5.0 %) 4.1 O2 Concentration % R/A Chemistry Sodium (137 - 145 mmol/L) 137 Potassium (3.5 - 5.1 mmol/L) 4.5 Chloride (98 - 107 mmol/L) 104 Carbon Dioxide (22 - 30 mmol/L) 20 L Anion Gap (5 - 16) 14 BUN (7 - 17 mg/dL) 21 H Creatinine (0.5 - 1.0 mg/dL) 0.5 Estimated GFR (>60 ml/min) > 60 BUN/Creatinine Ratio (7 - 25 %) 42.0 H Lactic Acid (0.7 - 2.1 mmol/L) 1.3 TSH (0.270 - 4.200 uIU/mL) 1.120 Free T4 (0.64 - 1.79 ng/dL) 1.53 Total T3 (0.97 - 1.69 ng/mL) 0.58 L Hematology CBC w Diff NO MAN DIFF REQ WBC (4.8 - 10.8 /CUMM) 11.3 H RBC (4.20 - 5.40 /CUMM) 3.54 L Hgb (12.0 - 16.0 G/DL) 11.9 L Hct (37 - 47 %) 35.7 L MCV (81.0 - 99.0 FL) 100.8 H MCH (27.0 - 31.0 PG) 33.6 H RDW (11.5 - 14.5 %) 15.5 H Plt Count (130 - 400 /CUMM) 146 MPV (7.4 - 10.4 FL) 9.1 Gran % (42.2 - 75.2 %) 76.7 H Lymphocytes % (20.5 - 51.1 %) 11.2 L Monocytes % (1.7 - 9.3 %) 10.7 H Eosinophils % (0 - 5 %) 1.0 Basophils % (0.0 - 2.0 %) 0.4 Absolute Granulocytes (1.4 - 6.5 /CUMM) 8.6 H Absolute Lymphocytes (1.2 - 3.4 /CUMM) 1.3 Absolute Monocytes (0.10 - 0.60 /CUMM) 1.2 H Absolute Eosinophils (0.0 - 0.7 /CUMM) 0.1 Absolute Basophils (0.0 - 0.2 /CUMM) 0.1 PUBS MCHC (33.0 - 37.0 G/DL) 33.3 Miscellaneous Phlebotomy Draw Site VENOUS 10/287 Chemistry Sodium (137 - 145 mmol/L) 136 L Potassium (3.5 - 5.1 mmol/L) 4.2 Chloride (98 - 107 mmol/L) 98 Carbon Dioxide (22 - 30 mmol/L) 24 Anion Gap (5 - 16) 14 BUN (7 - 17 mg/dL) 31 H Creatinine (0.5 - 1.0 mg/dL) 0.6 Estimated GFR (>60 ml/min) > 60 BUN/Creatinine Ratio (7 - 25 %) 51.7 H Glucose (65 - 99 mg/dL) 249 H Lactic Acid (0.7 - 2.1 mmol/L) 2.5 H Calcium (8.4 - 10.2 mg/dL) 9.1 Total Bilirubin (0.2 - 1.3 mg/dL) 1.0 Direct Bilirubin (< 0.4 mg/dL) 0.6 H AST (14 - 36 U/L) 17 ALT (9 - 52 U/L) 32 Alkaline Phosphatase (<127 U/L) 71 Troponin I (< 0.11 ng/ml) 0.02 Total Protein (6.3 - 8.2 g/dL) 6.3 Albumin (3.5 - 5.0 g/dL) 3.8 Amylase (30 - 110 U/L) 39 Lipase (23 - 300 U/L) 13 L Coagulation PT (9.4 - 12.5 SEC) 11.8 INR (0.90 - 1.19) 1.13 APTT (25 - 37 SEC) 29 Hematology CBC w Diff NO MAN DIFF REQ WBC (4.8 - 10.8 /CUMM) 14.3 H RBC (4.20 - 5.40 /CUMM) 4.22 Hgb (12.0 - 16.0 G/DL) 14.2 Hct (37 - 47 %) 42.4 MCV (81.0 - 99.0 FL) 100.6 H MCH (27.0 - 31.0 PG) 33.7 H RDW (11.5 - 14.5 %) 15.7 H Plt Count (130 - 400 /CUMM) 185 MPV (7.4 - 10.4 FL) 9.2 Gran % (42.2 - 75.2 %) 80.9 H Lymphocytes % (20.5 - 51.1 %) 8.6 L Monocytes % (1.7 - 9.3 %) 9.9 H Eosinophils % (0 - 5 %) 0.4 Basophils % (0.0 - 2.0 %) 0.2 Absolute Granulocytes (1.4 - 6.5 /CUMM) 11.5 H Absolute Lymphocytes (1.2 - 3.4 /CUMM) 1.2 Absolute Monocytes (0.10 - 0.60 /CUMM) 1.4 H Absolute Eosinophils (0.0 - 0.7 /CUMM) 0.1 Absolute Basophils (0.0 - 0.2 /CUMM) 0 PUBS MCHC (33.0 - 37.0 G/DL) 33.4 Toxicology Acetone Level (NEGATIVE) NEGATIVE Imaging/Other Studies: Esophagram normal except for mild reflux. Normal passage of barium tablet.
--- NOTE | 2017-10-31 17:39 | PN- Diabetes ---
Assessment/Plan Assessment: Patient is a 52-year-old woman with a past medical history significant for rheumatoid arthritis (on methotrexate and prednisone 5 mg daily ), history of type 1 diabetes mellitus on insulin pump, history of anxiety depression, history of hypertension and hyperlipidemia, history of chronic pain syndrome on opiates presented to the ED for evaluation of vomiting and bloody stools. Patient has been having intermittent vomiting with loose watery stools for the last [address] scan showed marked colonic wall thickening involving the distal transverse colon, splenic flexure and the descending colon. She is on Levemir 10 units twice a day and Novolog coverage every 4 hours. In addition, she is on D5 w with Kcl at 50 ml/hour. She tolerated clear liquit diet and her diet was advanced to low fiber diet. Her FSGs were 153, 218 and 289. As she has been prednisone 5 mg daily chronically, she was on stress dose of steroid --- hydrocortisone 25 mg iv daily which was discontinued today. She is on prednisone 10 mg daily. K 3.2; she received oral K supplement. Plan: 1. continue Levemir 10 units twice a day; 2. recommend discontinue Novolog coverage every 4 hours; 3. hold off on IVF if she tolerates the diet; 4. start Novolog coverage before meals and Novolog coverage at bedtime--detail see the inpatient DM orders; 5. monitor FSGs and electrolytes. will follow. Inpatient Diabetes Orders Before Each Meal: Bolus Insulin: Novolog < 80 mg/dl: no coverage 80-100 mg/dl: no coverage 101-120 mg/dl: 2 units 121-150 mg/dl: 2 units 151-200 mg/dl: 3 units 201-250 mg/dl: 5 units 251-300 mg/dl: 7 units 301-350 mg/dl: 9 units 351-400 mg/dl: 10 units > 400 mg/dl: 11 units Bedtime: Bolus Insulin: Novolog < 80 mg/dl: no coverage 80-100 mg/dl: no coverage 101-120 mg/dl: no coverage 121-150 mg/dl: no coverage 151-200 mg/dl: no coverage 201-250 mg/dl: no coverage 251-300 mg/dl: 2 units 301-350 mg/dl: 3 units 351-400 mg/dl: 4 units > 400 mg/dl: 5 units Subjective Subjective: She has been tolerating clear liquid diet. Objective Last 24 Hrs of Vital Signs/I&O Vital Signs Date Time Temp Pulse Resp B/P B/P Pulse O2 O2 Flow FiO2 Mean Ox Delivery Rate 10/31 1449 99.2 72 20 140/78 94 10/31 0615 98.5 84 20 134/76 95 Room Air 10/30 2247 98.1 90 20 142/80 96 Room Air Intake & Output 10/31 1600 10/31 0800 10/31 0000 Intake Total 1050 880 590 Output Total 650 600 Balance 400 280 590 Intake, IV 800 400 450 Intake, Oral 250 480 140 Output, Urine 650 600 Findings Pertinent Lab/South Results: Laboratory Tests 10/31 814 Chemistry Sodium (137 - 145 mmol/L) 140 Potassium (3.5 - 5.1 mmol/L) 3.2 L Chloride (98 - 107 mmol/L) 102 Carbon Dioxide (22 - 30 mmol/L) 31 H Anion Gap (5 - 16) 8 BUN (7 - 17 mg/dL) 6 L Creatinine (0.5 - 1.0 mg/dL) 0.5 Estimated GFR (>60 ml/min) > 60 BUN/Creatinine Ratio (7 - 25 %) 12.0 Hematology CBC w Diff NO MAN DIFF REQ WBC (4.8 - 10.8 /CUMM) 6.3 RBC (4.20 - 5.40 /CUMM) 3.31 L Hgb (12.0 - 16.0 G/DL) 11.1 L Hct (37 - 47 %) 33.4 L MCV (81.0 - 99.0 FL) 101.0 H MCH (27.0 - 31.0 PG) 33.5 H RDW (11.5 - 14.5 %) 15.1 H Plt Count (130 - 400 /CUMM) 146 MPV (7.4 - 10.4 FL) 8.8 Gran % (42.2 - 75.2 %) 61.6 Lymphocytes % (20.5 - 51.1 %) 26.3 Monocytes % (1.7 - 9.3 %) 9.5 H Eosinophils % (0 - 5 %) 2.2 Basophils % (0.0 - 2.0 %) 0.4 Absolute Granulocytes (1.4 - 6.5 /CUMM) 3.9 Absolute Lymphocytes (1.2 - 3.4 /CUMM) 1.7 Absolute Monocytes (0.10 - 0.60 /CUMM) 0.6 Absolute Eosinophils (0.0 - 0.7 /CUMM) 0.1 Absolute Basophils (0.0 - 0.2 /CUMM) 0 PUBS MCHC (33.0 - 37.0 G/DL) 33.2
[2017-10-31 22:22] VITALS: BP 120/80
[2017-11-01 07:08] VITALS: BP 146/70
--- NOTE | 2017-11-01 07:57 | PN- Housestaff ---
Rose Mak 11/01/17 0757: Subjective Follow-up For: cOLITIS MOST LIKELY ISCHEMIC fEVER MOST LIKELY DUE TO ASPIRATION PNEUMONIA aCID REFLUX AND DYSPHAGIA Complaints: no complaints Subjective: Patient was seen and examined this morning. She was slightly uncomfortable but she is denying any further episodes of diarrhea or abdominal pain. She spiked a fever of 103. Chest x-ray does show new consolidation. She was complaining of slight cough as well. Review of Systems Constitutional: Reports: malaise, weakness. Denies: chills, diaphoresis. Cardiovascular: Denies: chest pain, edema, orthopena. Respiratory: Reports: cough. Denies: hemoptysis. Gastrointestinal: Denies: constipation, diarrhea. Genitourinary: Denies: dysuria, hematuria. Musculoskeletal: Denies: gout, joint pain. Objective Last 24 Hrs of Vital Signs/I&O Vital Signs Date Time Temp Pulse Resp B/P B/P Pulse O2 O2 Flow FiO2 Mean Ox Delivery Rate 11/01 1041 102.1 80 20 146/70 11/01 0736 102.1 11/01 0708 103.1 79 20 146/70 90 Room Air 11/01 0637 103.1 10/31 2222 99.0 60 20 120/80 96 Room Air Intake & Output 11/01 1600 11/01 0800 11/01 0000 Intake Total 700 300 Output Total Balance 700 300 Intake, IV 400 Intake, Oral 300 300 Patient 185 lb Weight Physical Exam General Appearance: Alert, Oriented X3, Cooperative, No Acute Distress Cardiovascular: Regular Rate, Normal S1, Normal S2, No Murmurs Lungs: left lower base crackles Abdomen: Soft, No Tenderness Current Medications: Current Medications Sig/Irving Start time Last Medication Dose Route Stop Time Status Admin Acetaminophen 650 MG .STK-MED ONE 11/01 0637 DC PO 11/01 0638 Acetaminophen 650 MG Q6P PRN 10/29 0215 AC 11/01 PO 0637 Ampicillin Sodium/ 1,500 MG Q6 11/01 1800 UNVr Sulbactam Sodium IV Sodium Chloride 100 ML Bupropion HCl 300 MG DAILY 10/29 1000 AC 11/01 PO 1016 Dextrose 25 GM ONCE 10/30 1300 AC 10/30 IV 1312 Dicyclomine HCl 20 MG 4 TIMES/DAY PRN 10/30 0100 AC PO Fluoxetine HCl 40 MG DAILY 10/29 1000 AC 11/01 PO 1039 Folic Acid 2 MG DAILY 10/31 1537 AC 11/01 PO 1040 Hydromorphone HCl 1 MG ONCE ONE 10/31 1900 DC IV 10/31 1901 Insulin Aspart 0 TIDAC 11/01 0800 11/01 SC 1312 Insulin Aspart 0 Q4 10/29 0600 TN 10/31 SC 1458 Insulin Detemir 10 UNITS BID 10/30 2200 AC 11/01 SC 1019 Lisinopril 10 MG DAILY 10/31 1219 AC 11/01 PO 1041 Morphine Sulfate 60 MG Q8 10/29 0600 11/01 PO 1453 Morphine Sulfate 2 MG Q8P PRN 10/29 0245 11/01 IV 1042 Nicotine 21 MG DAILY 10/29 0230 11/01 TOP 1017 Omeprazole 40 MG DAILY AC 10/31 1100 AC 11/01 PO 0544 Ondansetron HCl 4 MG Q8P PRN 10/29 0515 11/01 PO 1016 Oxycodone/ 1 TAB Q6P PRN 10/29 0245 11/01 Acetaminophen PO 1320 Potassium Chloride 100 MEQ 11/01 1515 UNir IV Potassium Chloride 20 MEQ Q20H 10/30 1530 TN 11/01 Dextrose/Water 1,000 ML IV 1457 Prednisone 5 MG DAILY 11/02 1000 UNVr PO Prednisone 10 MG DAILY 11/01 1000 DC 11/01 PO 1017 Trazodone HCl 100 MG AT BEDTIME 10/29 2345 10/31 PO 2102 Last 24 Hrs of Lab/South Results Last 24 Hrs of Labs/Mics: Laboratory Tests 11/01/17 1305: Lactic Acid 1.9 11/01/17 0757: Anion Gap 10, Estimated GFR > 60, BUN/Creatinine Ratio 13.3, CBC w Diff NO MAN DIFF REQ, RBC 3.47 L, MCV 99.9 H, MCH 33.3 H, RDW 15.3 H, MPV 9.0, Gran % 75.0, Lymphocytes % 9.7 L, Monocytes % 14.1 H, Eosinophils % 0.9, Basophils % 0.3, Absolute Granulocytes 5.0, Absolute Lymphocytes 0.6 L, Absolute Monocytes 0.9 H, Absolute Eosinophils 0.1, Absolute Basophils 0, PUBS MCHC 33.3 Microbiology 11/01 1441 LOWER RESP: Respiratory Culture - ORD 11/01 1441 LOWER RESP: Gram Stain - ORD 11/01 1305 BLOOD: Blood Culture - RECD 11/01 0953 NASOPHARYN: Influenza Virus A & B Rapid Smear - COLB 11/01 09 URINE ROUT: Urine Culture - RECD 11/01 824 STOOL: Stool Culture - COLB 11/01 824 BLOOD: Blood Culture - COLB Assessment/Plan Assessment: adalgisa is a 52-year-old woman with a past medical history significant for rheumatoid arthritis (on methotrexate and prednisone), history of type 1 diabetes mellitus on insulin pump, history of anxiety depression, history of hypertension and hyperlipidemia, history of chronic pain syndrome from rheumatoid arthritis on opiates presented to the ED for evaluation of vomiting and bloody stools. Impression/plan #Vomiting with bright red blood per rectum(likely lower GI bleed/infectious colitis: * GI recommendations appreciated and patient would need outpatient EGD/ colonoscopy #High-grade fever Patient spiked a fever of 103.1 this morning. We pancultured her. Chest x-ray does show her left lower lobe consolidation and ID consultation was placed and according to recommendations we would treat her with IV Unasyn for aspiration pneumonia. #Difficulty swallowing * GI consult appreciated * Esophagogram showed acid reflux but no motility disorder. We will start her on PPI . After starting regular diet she was complaining of nausea and we will change her diet to full liquids. #History of hypertension hyperlipidemia * Continue statin and we will resume her home dose of lisinopril. #Rheumatoid arthritis (on methotrexate and prednisone) * Patient was started on stress dose of hydrocortisone 25 mg daily she received 3 doses and also she was on 5 mg of prednisone which was her home dose. Patient was given 10 mg of prednisone today and we will resume her home dose of 5 mg tomorrow * Hold methotrexate in the setting of infectious colitis. # history of type 1 diabetes mellitus on insulin pump * On insulin pump at home * Follow endocrine recommendations * Accu-Cheks , #history of anxiety depression * Continue home medications #Chronic pain syndrome due to rheumatoid arthritis(history of opioid dependence) * Continue extended release morphine sulfate 60 mg 3 times a day along with IV morphine for breakthrough pain and Percocet. DVT prophylaxis Alps patient is full code Problem List: 1. Diarrhea 2. Colitis 3. Aspiration pneumonia Pain Ratin Pain Location: na Pain Goal: Remain pain free Pain Plan: tylenol Tomorrow's Labs & Rationales: cbc yessip Rigoberto DIAZ,Arabella 11/01/17 1141: Attending MD Review Statement Attending Statement Attending MD Statement: examined this patient, discuss w/resident/PA/ANSWERING SERVICE AGENT, agreed w/resident/PA/ANSWERING SERVICE AGENT, reviewed EMR data (avail), discussed with nursing, discussed with case mgmt, reviewed images, amended to note Attending Assessment/Plan: Patient seen and examined, this morning she is spiking high-grade fevers. Upon further questioning she does not complain of much history symptoms but did mention that she felt mucus in her throat. Last night when she ate solid food she felt nauseous and had some abdominal pain. Vital Signs Date Time Temp Pulse Resp B/P B/P Pulse O2 O2 Flow FiO2 Mean Ox Delivery Rate 11/01 1041 102.1 80 20 146/70 11/01 0736 102.1 11/01 0708 103.1 79 20 146/70 90 Room Air 11/01 0637 103.1 10/31 2222 99.0 60 20 120/80 96 Room Air 10/31 1449 99.2 72 20 140/78 94 on exam; aox3, nad. cv; s1,s2, rrr resp; b/l basal crackles L>R. abd; soft, mildly tender throughout, bs+ ext; no edema. Laboratory Tests 11/01 0757 Chemistry Sodium (137 - 145 mmol/L) 135 L Potassium (3.5 - 5.1 mmol/L) 3.6 Chloride (98 - 107 mmol/L) 97 L Carbon Dioxide (22 - 30 mmol/L) 28 Anion Gap (5 - 16) 10 BUN (7 - 17 mg/dL) 8 Creatinine (0.5 - 1.0 mg/dL) 0.6 Estimated GFR (>60 ml/min) > 60 BUN/Creatinine Ratio (7 - 25 %) 13.3 Hematology CBC w Diff NO MAN DIFF REQ WBC (4.8 - 10.8 /CUMM) 6.7 RBC (4.20 - 5.40 /CUMM) 3.47 L Hgb (12.0 - 16.0 G/DL) 11.5 L Hct (37 - 47 %) 34.6 L MCV (81.0 - 99.0 FL) 99.9 H MCH (27.0 - 31.0 PG) 33.3 H RDW (11.5 - 14.5 %) 15.3 H Plt Count (130 - 400 /CUMM) 151 MPV (7.4 - 10.4 FL) 9.0 Gran % (42.2 - 75.2 %) 75.0 Lymphocytes % (20.5 - 51.1 %) 9.7 L Monocytes % (1.7 - 9.3 %) 14.1 H Eosinophils % (0 - 5 %) 0.9 Basophils % (0.0 - 2.0 %) 0.3 Absolute Granulocytes (1.4 - 6.5 /CUMM) 5.0 Absolute Lymphocytes (1.2 - 3.4 /CUMM) 0.6 L Absolute Monocytes (0.10 - 0.60 /CUMM) 0.9 H Absolute Eosinophils (0.0 - 0.7 /CUMM) 0.1 Absolute Basophils (0.0 - 0.2 /CUMM) 0 PUBS MCHC (33.0 - 37.0 G/DL) 33.3 A/P; 52 y/o F with pmh sig for rheumatoid arthritis (on methotrexate and prednisone), history of type 1 diabetes mellitus on insulin pump, history of anxiety depression, history of hypertension and hyperlipidemia, history of chronic pain syndrome admitted with vomiting and bloody diarrhea and found to have diffuse colitis on abdominal imaging. Differential could include infectious or ischemic. Patient was doing well up until yesterday and her diet was advanced. Last night after eating solid food, she became nauseous and started to develop more abdominal pain. This morning she spiking fever. We will panculture her. Chest x-ray showing possibility of developing consolidation the left lower lobe. We will recheck her flu swab as possibility of influenza always remains high. Infectious disease will be consulted. Please switch diet to full liquid and inset of solid. Noted a slight drop in sodium. Please switch fluids to D5 1/2 NS. Insulin management per endocrinology. Resume home dose of prednisone starting tomorrow. Today patient is getting 10 ng of prednisone as she has received slightly higher dose in the past few days. DVT px; ALPS.
[2017-11-01 08:47] LABS: ABSOLUTE BASOPHIL COUNT 0 /CUMM (0.0-0.2); ABSOLUTE EOSINOPHIL COUNT 0.1 /CUMM (0.0-0.7); ABSOLUTE LYMPH COUNT 0.6 /CUMM (1.2-3.4); ABSOLUTE MONOCYTE COUNT 0.9 /CUMM (0.10-0.60); BASOPHIL % 0.3 % (0.0-2.0); EOSINOPHIL % 0.9 % (0-5); HEMATOCRIT 34.6 % (37-47); MEAN CORPUSCULAR HGB 33.3 PG (27.0-31.0); MEAN CORPUSCULAR HGB CONC 33.3 G/DL (33.0-37.0); MEAN CORPUSCULAR VOLUME 99.9 FL (81.0-99.0); PLATELET COUNT 151 /CUMM (130-400); RBC DISTRIBUTION WIDTH 15.3 % (11.5-14.5); RED BLOOD CELL CT 3.47 /CUMM (4.20-5.40); WHITE BLOOD CELL COUNT 6.7 /CUMM (4.8-10.8)
--- NOTE | 2017-11-01 09:49 | PN- Diabetes ---
Assessment/Plan Assessment: Patient is a 52-year-old woman with a past medical history significant for rheumatoid arthritis (on methotrexate and prednisone 5 mg daily ), history of type 1 diabetes mellitus on insulin pump, history of anxiety depression, history of hypertension and hyperlipidemia, history of chronic pain syndrome on opiates presented to the ED for evaluation of vomiting and bloody stools. Patient has been having intermittent vomiting with loose watery stools for the last [address] scan showed marked colonic wall thickening involving the distal transverse colon, splenic flexure and the descending colon. She was on Levemir 10 units twice a day and Novolog coverage every 4 hours. She tolerated clear liquit diet and her diet was advanced to low fiber diet. Now she is on Levemir 10 units twice a day, Novolog coverage before meals and Novolog coverage at bedtime. Her FSGs were 294, 282, 207 anbd 201. As she has been prednisone 5 mg daily chronically, she was on stress dose of steroid --- hydrocortisone 25 mg iv daily which was discontinued. Currently she is on prednisone 10 mg daily. She is still on NS with 40 meq of KCL at 50 ml/hour. She had fever of 103 last night. This am, she feels nausea again. Plan: continue the current insulin regimen for now; monitor FSGs. will follow. Subjective Subjective: She had fever of 103 last night. She feels nauseous again this morning. Objective Last 24 Hrs of Vital Signs/I&O Vital Signs Date Time Temp Pulse Resp B/P B/P Pulse O2 O2 Flow FiO2 Mean Ox Delivery Rate 11/01 0736 102.1 11/01 0708 103.1 79 20 146/70 90 Room Air 11/01 0637 103.1 10/31 2222 99.0 60 20 120/80 96 Room Air 10/31 1449 99.2 72 20 140/78 94 Intake & Output 11/01 1600 11/01 0800 11/01 0000 Intake Total 700 300 Output Total Balance 700 300 Intake, IV 400 Intake, Oral 300 300 Findings Pertinent Lab/South Results: Laboratory Tests 11/01 0757 Chemistry Sodium (137 - 145 mmol/L) 135 L Potassium (3.5 - 5.1 mmol/L) 3.6 Chloride (98 - 107 mmol/L) 97 L Carbon Dioxide (22 - 30 mmol/L) 28 Anion Gap (5 - 16) 10 BUN (7 - 17 mg/dL) 8 Creatinine (0.5 - 1.0 mg/dL) 0.6 Estimated GFR (>60 ml/min) > 60 BUN/Creatinine Ratio (7 - 25 %) 13.3 Hematology CBC w Diff NO MAN DIFF REQ WBC (4.8 - 10.8 /CUMM) 6.7 RBC (4.20 - 5.40 /CUMM) 3.47 L Hgb (12.0 - 16.0 G/DL) 11.5 L Hct (37 - 47 %) 34.6 L MCV (81.0 - 99.0 FL) 99.9 H MCH (27.0 - 31.0 PG) 33.3 H RDW (11.5 - 14.5 %) 15.3 H Plt Count (130 - 400 /CUMM) 151 MPV (7.4 - 10.4 FL) 9.0 Gran % (42.2 - 75.2 %) 75.0 Lymphocytes % (20.5 - 51.1 %) 9.7 L Monocytes % (1.7 - 9.3 %) 14.1 H Eosinophils % (0 - 5 %) 0.9 Basophils % (0.0 - 2.0 %) 0.3 Absolute Granulocytes (1.4 - 6.5 /CUMM) 5.0 Absolute Lymphocytes (1.2 - 3.4 /CUMM) 0.6 L Absolute Monocytes (0.10 - 0.60 /CUMM) 0.9 H Absolute Eosinophils (0.0 - 0.7 /CUMM) 0.1 Absolute Basophils (0.0 - 0.2 /CUMM) 0 PUBS MCHC (33.0 - 37.0 G/DL) 33.3
--- NOTE | 2017-11-01 10:35 | RADIOLOGY REPORT ---
EXAMINATION: XR PORTABLE CHEST CLINICAL INFORMATION: Fever. Assess for pneumonia. COMPARISON: Chest x-ray 10/14/2012. TECHNIQUE: A portable AP 85 degrees semierect view of the chest was obtained. FINDINGS: The lungs are moderately well-expanded. There patchy opacities in the left lower lobe, which may be consistent with developing consolidation. There may be a small left pleural effusion. The cardiac silhouette is normal in size. The central pulmonary vasculature is normal. There are healed right 3rd and th7 rib fractures. There are no acute osseous findings. IMPRESSION: 1. There are patchy opacities in the left lower lobe, which may be consistent with developing consolidation. Correlate clinically.
--- NOTE | 2017-11-01 15:12 | Cons- Infect Disease ---
General Information and HPI Consulting Request Date of Consult: 11/01/17 Requested By: Arabella Franklin MD Reason for Consult: Fever/hypoxia Source of Information: patient History of Present Illness: This is a 52-year-old woman with a history of diabetes, hypertension, rheumatoid arthritis, maintained on 5 mg of prednisone and weekly methotrexate, and chronic pain, maintained on opiates, hospitalized 3 months prior to admission at [facility] for nearly 2 weeks with pneumonia, with details not available, admitted on October 29 with several days of bloody stools and crampy abdominal pain and a several week history of dysphagia, nausea, with episodes of dyspnea, and irregular bowel movements with no reported fevers or chills. On admission she was afebrile. Laboratory data revealed a white blood cell count of 14,000, BUN/ creatinine 31 and 0.6, lactic acid 2.5, with normal liver enzymes, coags normal. CT of the abdomen and pelvis with IV contrast revealed diffuse wall thickening of the distal transverse colon, splenic flexure and descending colon, with tiny dependent gallstones with no gallbladder wall thickening or pericholecystic fluid. She was treated symptomatically, with IV fluids and stress steroids. She has had no bowel movements since admission and her diet has been advanced gradually to full liquids, which she has tolerated, though she continues to report dysphagia and occasional nausea. Last evening she had an episode of shortness of breath and this morning she was found to be febrile to over 103. She does not report any chest pain but does note a cough, which may be productive and mild dyspnea. She notes a mild headache but denies any sore throat or change in her usual joint pains. Allergies/Medications Allergies: Coded Allergies: NO KNOWN ALLERGIES (10/14/12) Home Med List: Bupropion HCl (Wellbutrin XL) 300 MG TAB.ER.24H 1 TAB PO DAILY DESPRESSION ( Reported) Fluoxetine HCl (Prozac) 40 MG CAPSULE 1 CAP PO DAILY DEPRESSION (Reported) Lisinopril 10 MG TABLET 1 TAB PO DAILY HTN (Reported) Methotrexate Sodium/Pf (Methotrexate 25 MG/Ml Vial) 25 MG/ML VIAL 25 ML IV MONDAYS RA (Reported) Morphine Sulfate (Morphine Sulfate ER) 60 MG TABLET.ER 1 TAB PO TID RA ( Reported) Oxycodone HCl/Acetaminophen (Percocet 10-325 MG Tablet) 10 MG-325 MG TABLET 1 TAB PO TID RA (Reported) Prednisone 5 MG TABLET 1 TAB PO DAILY RA (Reported) Trazodone HCl 100 MG TABLET 1 TAB PO QPM INSOMINIA (Reported) Past History Travel History Traveled to [place] past 21 day No Medical History Blood Transfusion Hx: No Neurological: NONE EENT: NONE Cardiovascular: hypertension, hyperlipidemia Respiratory: NONE Hepatic: NONE Renal: NONE Musculoskeletal: rheumatoid arthritis Psychiatric: anxiety, chronic pain disorder, depression, opioid dependence Endocrine: DM Blood Disorders: NONE Cancer(s): NONE VINEYARD TENDER/Reproductive: NONE History of MRSA: Yes History of VRE: No History of CDIFF: No Isolation History: Contact Pneumonia Vaccine: 07/15/10 Influenza Vaccine: 07/15/10 Surgical History Surgical History: hysterectomy Family History Relations & Conditions If Any: FATHER (colorectal cancer). Psychosocial History Where Do You Live? Home Services at Home: None Smoking Status: Current Everyday Smoker Review of Systems Review of Systems All Other Systems: Reviewed and Negative Exam & Diagnostic Data Last 24 Hrs of Vital Signs/I&O Vital Signs Date Time Temp Pulse Resp B/P B/P Pulse O2 O2 Flow FiO2 Mean Ox Delivery Rate 11/01 1041 102.1 80 20 146/70 11/01 0736 102.1 11/01 0708 103.1 79 20 146/70 90 Room Air 11/01 0637 103.1 10/31 2222 99.0 60 20 120/80 96 Room Air Intake & Output 11/01 1600 11/01 0800 11/01 0000 Intake Total 700 300 Output Total Balance 700 300 Intake, IV 400 Intake, Oral 300 300 Patient 185 lb Weight Physical Exam Other Physical Findings: MAXIMUM TEMPERATURE 103.1. She is awake and alert in no acute distress. Skin reveals no rash. HEENT negative. Neck is supple with no adenopathy. Lungs crackles at the left base. Heart regular rhythm with no murmur. Abdomen is soft, nontender with positive bowel sounds. Back no CVA tenderness. Extremities no cyanosis, clubbing or edema. Neuro is without focality. Last 24 Hours of Lab Results: Laboratory Tests 11/01 11/01 1305 0757 Chemistry Sodium (137 - 145 mmol/L) 135 L Potassium (3.5 - 5.1 mmol/L) 3.6 Chloride (98 - 107 mmol/L) 97 L Carbon Dioxide (22 - 30 mmol/L) 28 Anion Gap (5 - 16) 10 BUN (7 - 17 mg/dL) 8 Creatinine (0.5 - 1.0 mg/dL) 0.6 Estimated GFR (>60 ml/min) > 60 BUN/Creatinine Ratio (7 - 25 %) 13.3 Lactic Acid (0.7 - 2.1 mmol/L) 1.9 Hematology CBC w Diff NO MAN DIFF REQ WBC (4.8 - 10.8 /CUMM) 6.7 RBC (4.20 - 5.40 /CUMM) 3.47 L Hgb (12.0 - 16.0 G/DL) 11.5 L Hct (37 - 47 %) 34.6 L MCV (81.0 - 99.0 FL) 99.9 H MCH (27.0 - 31.0 PG) 33.3 H RDW (11.5 - 14.5 %) 15.3 H Plt Count (130 - 400 /CUMM) 151 MPV (7.4 - 10.4 FL) 9.0 Gran % (42.2 - 75.2 %) 75.0 Lymphocytes % (20.5 - 51.1 %) 9.7 L Monocytes % (1.7 - 9.3 %) 14.1 H Eosinophils % (0 - 5 %) 0.9 Basophils % (0.0 - 2.0 %) 0.3 Absolute Granulocytes (1.4 - 6.5 /CUMM) 5.0 Absolute Lymphocytes (1.2 - 3.4 /CUMM) 0.6 L Absolute Monocytes (0.10 - 0.60 /CUMM) 0.9 H Absolute Eosinophils (0.0 - 0.7 /CUMM) 0.1 Absolute Basophils (0.0 - 0.2 /CUMM) 0 PUBS MCHC (33.0 - 37.0 G/DL) 33.3 Last 24 Hours of [place] Results: Rapid flu swab October 28 negative Stool culture and C. difficile October 29 negative Diagnostic Data Recent Imaging Findings: Chest x-ray November 01 reveals patchy bibasilar, left greater than right, densities Barium swallow October 30 reveals minimal intermittent gastroesophageal reflux localized to the distal one third of the thoracic esophagus CT of the abdomen and pelvis with IV contrast October 30 reveals marked colonic wall thickening involving the distal transverse colon, splenic flexure and descending colon; tiny dependent gallstones with no gallbladder wall thickening or pericholecystic inflammation Assessment/Plan Assessment/Plan Impression: This is a 52-year-old woman with a history of diabetes, hypertension, rheumatoid arthritis, maintained on 5 mg of prednisone and weekly methotrexate, and chronic pain, maintained on opiates, admitted on October 29 with several days of bloody stools and crampy abdominal pain and a several week history of dysphagia, nausea , with episodes of dyspnea, and irregular bowel movements, found to be afebrile with an initial leukocytosis, which resolved with fluids, with a CT of the abdomen and pelvis revealing colitis. The etiology of her colitis remains unclear, but she has had no further bowel movements since admission and further workup, including colonoscopy, is apparently to be scheduled as an outpatient. Her dysphagia and episodes of nausea and dyspnea may be secondary to reflux, apparent on the barium swallow, and she has been started on Omeprazole. Her fever is most likely secondary to aspiration pneumonia, with her chest x-ray interpreted as patchy opacities at the left lower lobe, and she will need to be covered with antibiotics. Of note she was hospitalized 3 months prior to admission at [facility] with pneumonia, which might increase her risk for healthcare associated pathogens, and it would be helpful to obtain details regarding her recent hospitalization as well as a sputum culture. Suggestion: 1. Obtain records from her recent hospitalization at [facility] 2. Obtain blood cultures 2 3. Obtain a sputum culture 4. Obtain a urinalysis and follow-up her urine culture 5. Further GI workup, including upper endoscopy and colonoscopy, per GI 6. Begin Unasyn 1.5 g IV every 6 hours pending above Consult Acknowledgment - Thank you for your consult request.
[2017-11-01 15:26] VITALS: BP 120/70
[2017-11-01 16:00] VITALS: BP 120/70
--- NOTE | 2017-11-01 21:44 | Event Note ---
Event Note Event Note: S: paged by nurse pt desatting to 83% B: This is a 52-year-old woman with a history of diabetes, hypertension, rheumatoid arthritis, maintained on 5 mg of prednisone and weekly methotrexate, and chronic pain, maintained on opiates. She is currently being treated for aspiration pneumonia and colitis A/R- The patient is lying in the bed in mild distress. Reports shortness of breath patient is put on oxygen nasal cannula. VS temp 100.1, heart rate 65, 138/58, oxygen saturation 92% on 2 L, Respiratory paged S1/S2,Lungs crackles at the left base. Bowel sounds present no cyanosis or edema in extremities. -Patient is currently being treated for aspiration pneumonia on IV Unasyn, chest x-ray reviewed, patchy bibasilar densities more so on the left -Labs called to know result of flu. Patient is flu positive -It is likely that patient desaturated secondary to aspiration pneumonia and flu. PE less likely patient does not have any tachycardia, no pain on respiration. But should be ruled out. as pt mis on DVT prophylaxis with Alps only; not on chemical prophylaxis because of suspected GI bleed -Continue Unasyn -Patient started on Tamiflu 75 BID after discussing clearence with pharmacy -Follow-up d-dimer levels -Patient reevaluated resting comfortably shortness of breath resolved currently on 3L of oxygen satting in 98% -d dimer 350,with age correction WNL -signout to morning team
[2017-11-01 22:25] VITALS: BP 138/80
[2017-11-02 04:59] LABS: ABSOLUTE BASOPHIL COUNT 0 /CUMM (0.0-0.2); ABSOLUTE EOSINOPHIL COUNT 0 /CUMM (0.0-0.7); ABSOLUTE GRANULOCYTE CT 4.3 /CUMM (1.4-6.5); ABSOLUTE LYMPH COUNT 0.8 /CUMM (1.2-3.4); ABSOLUTE MONOCYTE COUNT 0.6 /CUMM (0.10-0.60); BASOPHIL % 0.5 % (0.0-2.0); EOSINOPHIL % 0.3 % (0-5); GRANULOCYTE % 75.3 % (42.2-75.2); HEMATOCRIT 35.6 % (37-47); MEAN CORPUSCULAR HGB 33.3 PG (27.0-31.0); MEAN CORPUSCULAR HGB CONC 33.2 G/DL (33.0-37.0); MEAN CORPUSCULAR VOLUME 100.5 FL (81.0-99.0); PLATELET COUNT 145 /CUMM (130-400); RBC DISTRIBUTION WIDTH 15.3 % (11.5-14.5); RED BLOOD CELL CT 3.54 /CUMM (4.20-5.40); WHITE BLOOD CELL COUNT 5.7 /CUMM (4.8-10.8)
[2017-11-02 06:59] VITALS: BP 122/68
--- NOTE | 2017-11-02 07:29 | PN- Housestaff ---
Rose Mak 11/02/17 0729: Subjective Follow-up For: Colitis Flu Aspiration pneumonia Complaints: nausea Subjective: Patient was seen and examined this morning. She is complaining of nausea and some mildly productive cough. She has no appetite and was not feeling like to eat anything. She had diarrheal bowel movement but was not able to give us a stool sample and guerline blood was also noted in stool. Review of Systems Constitutional: Reports: malaise, weakness. Denies: chills, diaphoresis. Cardiovascular: Denies: chest pain, edema, orthopena. Respiratory: Denies: orthopnea, short of breath. Gastrointestinal: Reports: diarrhea. Denies: bloating. Genitourinary: Denies: dysuria, hesitation. Musculoskeletal: Reports: joint pain. Objective Last 24 Hrs of Vital Signs/I&O Vital Signs Date Time Temp Pulse Resp B/P B/P Pulse O2 O2 Flow FiO2 Mean Ox Delivery Rate 11/02 1235 100.6 11/02 1159 100.6 11/02 0830 97.8 53 20 122/68 11/02 0800 98 Nasal 3.0L Cannula 11/02 0659 97.8 53 20 122/68 98 Nasal 2.0L Cannula 11/02 0436 98 Nasal 3.5L Cannula 11/02 0000 92 Nasal 3.5L Cannula 11/01 2338 98.5 11/01 2225 100.5 62 20 138/80 92 Nasal Cannula 11/01 2203 100.5 11/01 1600 99.8 62 20 120/70 92 Room Air 11/01 1526 99.8 61 20 120/70 90 Intake & Output 11/02 1600 11/02 0800 11/02 0000 Intake Total 300 325 Output Total 400 Balance -100 325 Intake, IV 120 225 Intake, Oral 180 100 Number 2 Bowel Movements Output, Urine 400 Physical Exam General Appearance: Alert, Oriented X3, Cooperative, No Acute Distress Cardiovascular: Regular Rate, Normal S1, Normal S2, No Murmurs Lungs: left sided basal ronchi Abdomen: Soft, No Tenderness Current Medications: Current Medications Sig/Irving Start time Last Medication Dose Route Stop Time Status Admin Acetaminophen 650 MG .STK-MED ONE 11/01 2136 DC PO 11/01 213 Acetaminophen 650 MG Q6P PRN 10/29 0215 AC 11/02 PO 1235 Ampicillin Sodium/ 1,500 MG Q6 11/01 1800 AC 11/02 Sulbactam Sodium IV 1235 Sodium Chloride 100 ML Bupropion HCl 300 MG DAILY 10/29 1000 AC 11/02 PO 0823 Dextrose 25 GM ONCE 10/30 1300 AC 10/30 IV 1312 Dicyclomine HCl 20 MG 4 TIMES/DAY PRN 10/30 0100 AC PO Fluoxetine HCl 40 MG DAILY 10/29 1000 AC 11/02 PO 0830 Folic Acid 2 MG DAILY 10/31 1537 AC 11/02 PO 0844 Insulin Aspart 0 TIDAC 11/01 0800 11/02 SC 1233 Insulin Detemir 10 UNITS BID 10/30 2200 11/02 SC 0827 Lisinopril 10 MG DAILY 10/31 1219 AC 11/02 PO 0830 Morphine Sulfate 60 MG Q8 10/29 0600 11/02 PO 0440 Morphine Sulfate 2 MG Q8P PRN 10/29 0245 11/01 IV 1042 Nicotine 21 MG DAILY 10/29 0230 11/02 TOP 0826 Omeprazole 40 MG DAILY AC 10/31 1100 AC 11/02 PO 0640 Ondansetron HCl 4 MG Q8P PRN 10/29 0515 11/02 PO 1234 Oseltamivir Phosphate 75 MG BID 11/01 2230 AC 11/02 PO 11/05 2229 0830 Oxycodone/ 1 TAB Q6P PRN 10/29 0245 11/01 Acetaminophen PO 1320 Potassium Chloride 100 MEQ 11/01 1515 CAN IV Potassium Chloride 20 MEQ Q20H 10/30 1530 NC 11/01 Dextrose/Water 1,000 ML IV 1457 Prednisone 5 MG DAILY 11/02 1000 AC 11/02 PO 0829 Prednisone 10 MG DAILY 11/01 1000 NC 11/01 PO 1017 Trazodone HCl 100 MG AT BEDTIME 10/29 2345 11/01 PO 2229 Last 24 Hrs of Lab/[place] Results Last 24 Hrs of Labs/Mics: Laboratory Tests 11/02/17 0430: Anion Gap 10, Estimated GFR > 60, BUN/Creatinine Ratio 13.3, D-Dimer High Sensitivty 352 H, CBC w Diff NO MAN DIFF REQ, RBC 3.54 L, MCV 100.5 H, MCH 33.3 H, RDW 15.3 H, MPV 9.0, Gran % 75.3 H, Lymphocytes % 14.0 L, Monocytes % 9.9 H, Eosinophils % 0.3, Basophils % 0.5, Absolute Granulocytes 4.3, Absolute Lymphocytes 0.8 L, Absolute Monocytes 0.6, Absolute Eosinophils 0, Absolute Basophils 0, PUBS MCHC 33.2 Microbiology 11/02 1322 STOOL: Clostridium difficile Toxin A & B - ORD 11/01 1938 NASOPHARYN: Influenza Virus A & B Rapid Smear - COMP INFLUENZA TYPE A 11/01 1530 BLOOD: Blood Culture - RES 11/01 1441 LOWER RESP: Respiratory Culture - COLB 11/01 144 LOWER RESP: Gram Stain - COLB Assessment/Plan Assessment: adalgisa is a 52-year-old woman with a past medical history significant for rheumatoid arthritis (on methotrexate and prednisone), history of type 1 diabetes mellitus on insulin pump, history of anxiety depression, history of hypertension and hyperlipidemia, history of chronic pain syndrome from rheumatoid arthritis on opiates presented to the ED for evaluation of vomiting and bloody stools. Impression/plan #Vomiting with bright red blood per rectum(likely lower GI bleed/infectious colitis: She has no bowel movements for couple of days but today she again had a loose bowel movement with guerline blood in it. GI was again notified. #High-grade fever/flu She spiked a Tmax of of 103.1 yesterday and today she spiked Tmax of 100.6. Her influenza A came back positive and patient was started on Tamiflu. #Difficulty swallowing * GI consult appreciated * Esophagogram showed acid reflux but no motility disorder. We will start her on PPI . After starting regular diet she was complaining of nausea and we will change her diet to full liquids. * She also developed aspiration pneumonia and was started on Unasyn. We will continue her Unasyn for now. #History of hypertension hyperlipidemia * Continue statin and we will resume her home dose of lisinopril. #Rheumatoid arthritis (on methotrexate and prednisone) * Patient was started on stress dose of hydrocortisone 25 mg daily she received 3 doses and also she was on 5 mg of prednisone which was her home dose. Patient was given 10 mg of prednisone and weyesterday and she will continue her home dose of prednisone 5 mg daily. * Hold methotrexate in the setting of infectious colitis. # history of type 1 diabetes mellitus on insulin pump * On insulin pump at home * Follow endocrine recommendations * Accu-Cheks , #history of anxiety depression * Continue home medications #Chronic pain syndrome due to rheumatoid arthritis(history of opioid dependence) * Continue extended release morphine sulfate 60 mg 3 times a day along with IV morphine for breakthrough pain and Percocet. DVT prophylaxis Alps patient is full code Problem List: 1. Diarrhea 2. Aspiration pneumonia 3. Colitis 4. Influenza A Pain Ratin Pain Location: na Pain Goal: Remain pain free Pain Plan: tylenol Tomorrow's Labs & Rationales: cbc bep Rigoberto DIAZ,Arabella 11/02/17 1116: Attending MD Review Statement Attending Statement Attending MD Statement: examined this patient, discuss w/resident/PA/LAMBSKIN TRIMMER, agreed w/resident/PA/LAMBSKIN TRIMMER, reviewed EMR data (avail), discussed with nursing, discussed with case mgmt, reviewed images, amended to note Attending Assessment/Plan: Patient seen and examined, still feeling very weak and exhausted. She was able to take some Jell-O and juice this morning. Her fever spikes are improving. Her flu swab is positive. Vital Signs Date Time Temp Pulse Resp B/P B/P Pulse O2 O2 Flow FiO2 Mean Ox Delivery Rate 11/02 0830 97.8 53 20 122/68 11/02 0659 97.8 53 20 122/68 98 Nasal 2.0L Cannula 11/02 0436 98 Nasal 3.5L Cannula 11/02 0000 92 Nasal 3.5L Cannula 11/01 2338 98.5 11/01 2225 100.5 62 20 138/80 92 Nasal Cannula 11/01 2203 100.5 11/01 1600 99.8 62 20 120/70 92 Room Air 11/01 1526 99.8 61 20 120/70 90 on exam; aox3, nad. cv; s1, s2, rrr resp; decreased bs at left base. abd; soft, mildly tender generalized, bs+ ext; no edema Laboratory Tests 11/02 11/01 11/01 0430 1305 1126 Chemistry Sodium (137 - 145 mmol/L) 140 Potassium (3.5 - 5.1 mmol/L) 4.2 Chloride (98 - 107 mmol/L) 97 L Carbon Dioxide (22 - 30 mmol/L) 33 H Anion Gap (5 - 16) 10 BUN (7 - 17 mg/dL) 8 Creatinine (0.5 - 1.0 mg/dL) 0.6 Estimated GFR (>60 ml/min) > 60 BUN/Creatinine Ratio (7 - 25 %) 13.3 Lactic Acid (0.7 - 2.1 mmol/L) 1.9 Cancelled Coagulation D-Dimer High Sensitivty (0 - 243 ng/ml) 352 H Hematology CBC w Diff NO MAN DIFF REQ WBC (4.8 - 10.8 /CUMM) 5.7 RBC (4.20 - 5.40 /CUMM) 3.54 L Hgb (12.0 - 16.0 G/DL) 11.8 L Hct (37 - 47 %) 35.6 L MCV (81.0 - 99.0 FL) 100.5 H MCH (27.0 - 31.0 PG) 33.3 H RDW (11.5 - 14.5 %) 15.3 H Plt Count (130 - 400 /CUMM) 145 MPV (7.4 - 10.4 FL) 9.0 Gran % (42.2 - 75.2 %) 75.3 H Lymphocytes % (20.5 - 51.1 %) 14.0 L Monocytes % (1.7 - 9.3 %) 9.9 H Eosinophils % (0 - 5 %) 0.3 Basophils % (0.0 - 2.0 %) 0.5 Absolute Granulocytes (1.4 - 6.5 /CUMM) 4.3 Absolute Lymphocytes (1.2 - 3.4 /CUMM) 0.8 L Absolute Monocytes (0.10 - 0.60 /CUMM) 0.6 Absolute Eosinophils (0.0 - 0.7 /CUMM) 0 Absolute Basophils (0.0 - 0.2 /CUMM) 0 PUBS MCHC (33.0 - 37.0 G/DL) 33.2 A/P; 52 y/o F with pmh sig for rheumatoid arthritis (on methotrexate and prednisone), history of type 1 diabetes mellitus on insulin pump, history of anxiety depression, history of hypertension and hyperlipidemia, history of chronic pain syndrome admitted with vomiting and bloody diarrhea and found to have diffuse colitis. During her hospital course patient has also developed pneumonia which is possibly aspiration as well as influenza positive. She continues to complain of bloody diarrhea. Patient has been started on Unasyn. Tamiflu was also added. Patient has been kept on full liquid diet but if she tolerates her lunch, please advance her diet to low fiber solid for dinner. I will discuss with GI about any other further inpatient testing or procedures if indicated. Insulin management per endocrinology. Patient has been started back on her home dose of prednisone. Continue the rest of the medications. DVT px; ALPS.
--- NOTE | 2017-11-02 08:18 | PN- Diabetes ---
Assessment/Plan Assessment: Patient is a 52-year-old woman with a past medical history significant for rheumatoid arthritis (on methotrexate and prednisone 5 mg daily ), history of type 1 diabetes mellitus on insulin pump, history of anxiety depression, history of hypertension and hyperlipidemia, history of chronic pain syndrome on opiates presented to the ED for evaluation of vomiting and bloody stools. Patient has been having intermittent vomiting with loose watery stools for the last [address] scan showed marked colonic wall thickening involving the distal transverse colon, splenic flexure and the descending colon. She was on Levemir 10 units twice a day and Novolog coverage every 4 hours. She tolerated clear liquit diet and her diet was advanced to low fiber diet. Now she is on Levemir 10 units twice a day, Novolog coverage before meals and Novolog coverage at bedtime. Her FSGs were 201, 206, 85, 235, 268 and 223. As she has been prednisone 5 mg daily chronically, she was on stress dose of steroid --- hydrocortisone 25 mg iv daily which was discontinued. Currently she is on prednisone 10 mg daily. Plan: continue the current insulin regimen for now; monitor FSGs. will follow. Subjective Subjective: She still doesn't feel well. Objective Last 24 Hrs of Vital Signs/I&O Vital Signs Date Time Temp Pulse Resp B/P B/P Pulse O2 O2 Flow FiO2 Mean Ox Delivery Rate 11/02 0659 97.8 53 20 122/68 98 Nasal 2.0L Cannula 11/02 0436 98 Nasal 3.5L Cannula 11/02 0000 92 Nasal 3.5L Cannula 11/01 2338 98.5 11/01 2225 100.5 62 20 138/80 92 Nasal Cannula 11/01 2203 100.5 11/01 1600 99.8 62 20 120/70 92 Room Air 11/01 1526 99.8 61 20 120/70 90 11/01 1041 102.1 80 20 146/70 Intake & Output 11/02 1600 11/02 0800 11/02 0000 Intake Total 300 325 Output Total 400 Balance -100 325 Intake, IV 120 225 Intake, Oral 180 100 Number 2 Bowel Movements Output, Urine 400 Findings Pertinent Lab/[place] Results: Laboratory Tests 11/02 11/01 11/01 0430 1305 1126 Chemistry Sodium (137 - 145 mmol/L) 140 Potassium (3.5 - 5.1 mmol/L) 4.2 Chloride (98 - 107 mmol/L) 97 L Carbon Dioxide (22 - 30 mmol/L) 33 H Anion Gap (5 - 16) 10 BUN (7 - 17 mg/dL) 8 Creatinine (0.5 - 1.0 mg/dL) 0.6 Estimated GFR (>60 ml/min) > 60 BUN/Creatinine Ratio (7 - 25 %) 13.3 Lactic Acid (0.7 - 2.1 mmol/L) 1.9 Cancelled Coagulation D-Dimer High Sensitivty (0 - 243 ng/ml) 352 H Hematology CBC w Diff NO MAN DIFF REQ WBC (4.8 - 10.8 /CUMM) 5.7 RBC (4.20 - 5.40 /CUMM) 3.54 L Hgb (12.0 - 16.0 G/DL) 11.8 L Hct (37 - 47 %) 35.6 L MCV (81.0 - 99.0 FL) 100.5 H MCH (27.0 - 31.0 PG) 33.3 H RDW (11.5 - 14.5 %) 15.3 H Plt Count (130 - 400 /CUMM) 145 MPV (7.4 - 10.4 FL) 9.0 Gran % (42.2 - 75.2 %) 75.3 H Lymphocytes % (20.5 - 51.1 %) 14.0 L Monocytes % (1.7 - 9.3 %) 9.9 H Eosinophils % (0 - 5 %) 0.3 Basophils % (0.0 - 2.0 %) 0.5 Absolute Granulocytes (1.4 - 6.5 /CUMM) 4.3 Absolute Lymphocytes (1.2 - 3.4 /CUMM) 0.8 L Absolute Monocytes (0.10 - 0.60 /CUMM) 0.6 Absolute Eosinophils (0.0 - 0.7 /CUMM) 0 Absolute Basophils (0.0 - 0.2 /CUMM) 0 PUBS MCHC (33.0 - 37.0 G/DL) 33.2 11/01 11/01 0953 0900 Serology Virus Culture Pending Urines Urine Color (YEL,AMB,STR) YEL Urine Clarity (CLEAR) CLEAR Urine pH (5.0 - 8.0) 6.0 Ur Specific [place] (1.001 - 1.035) >= 1.030 Urine Protein (NEG,<30 MG/DL) NEG Urine Ketones (NEG) NEG Urine Nitrite (NEG) NEG Urine Bilirubin (NEG) NEG Urine Urobilinogen (0.1 - 1.0 EU/dl) 0.2 Ur Leukocyte Esterase (NEG) NEG Ur Microscopic EXAM NOT REQUIRED Urine Hemoglobin (NEG) NEG Urine Glucose (N MG/DL) 100 H
--- NOTE | 2017-11-02 12:58 | PN- Infect Dx ---
Subjective Subjective: MAXIMUM TEMPERATURE 103.1 on steroids. She feels somewhat better, with decreased dysphagia, but she continues to report nausea, with one episode of vomiting earlier, and she has had one bloody stool. She reports mild dyspnea with a nonproductive cough. Objective Last 24 Hrs of Vital Signs/I&O Vital Signs Date Time Temp Pulse Resp B/P B/P Pulse O2 O2 Flow FiO2 Mean Ox Delivery Rate 11/02 1235 100.6 11/02 1159 100.6 11/02 0830 97.8 53 20 122/68 11/02 0659 97.8 53 20 122/68 98 Nasal 2.0L Cannula 11/02 0436 98 Nasal 3.5L Cannula 11/02 0000 92 Nasal 3.5L Cannula 11/01 2338 98.5 11/01 2225 100.5 62 20 138/80 92 Nasal Cannula 11/01 2203 100.5 11/01 1600 99.8 62 20 120/70 92 Room Air 11/01 1526 99.8 61 20 120/70 90 Intake & Output 11/02 1600 11/02 0800 11/02 0000 Intake Total 300 325 Output Total 400 Balance -100 325 Intake, IV 120 225 Intake, Oral 180 100 Number 2 Bowel Movements Output, Urine 400 Physical Exam Other Physical Findings: She appears more comfortable in no acute distress Lungs are clear Heart regular rhythm with no murmur Abdomen is soft, nontender with positive bowel sounds Extremities no cyanosis, clubbing or edema Results Last 24 Hours of Lab Results: Laboratory Tests 11/02 11/01 0430 1305 Chemistry Sodium (137 - 145 mmol/L) 140 Potassium (3.5 - 5.1 mmol/L) 4.2 Chloride (98 - 107 mmol/L) 97 L Carbon Dioxide (22 - 30 mmol/L) 33 H Anion Gap (5 - 16) 10 BUN (7 - 17 mg/dL) 8 Creatinine (0.5 - 1.0 mg/dL) 0.6 Estimated GFR (>60 ml/min) > 60 BUN/Creatinine Ratio (7 - 25 %) 13.3 Lactic Acid (0.7 - 2.1 mmol/L) 1.9 Coagulation D-Dimer High Sensitivty (0 - 243 ng/ml) 352 H Hematology CBC w Diff NO MAN DIFF REQ WBC (4.8 - 10.8 /CUMM) 5.7 RBC (4.20 - 5.40 /CUMM) 3.54 L Hgb (12.0 - 16.0 G/DL) 11.8 L Hct (37 - 47 %) 35.6 L MCV (81.0 - 99.0 FL) 100.5 H MCH (27.0 - 31.0 PG) 33.3 H RDW (11.5 - 14.5 %) 15.3 H Plt Count (130 - 400 /CUMM) 145 MPV (7.4 - 10.4 FL) 9.0 Gran % (42.2 - 75.2 %) 75.3 H Lymphocytes % (20.5 - 51.1 %) 14.0 L Monocytes % (1.7 - 9.3 %) 9.9 H Eosinophils % (0 - 5 %) 0.3 Basophils % (0.0 - 2.0 %) 0.5 Absolute Granulocytes (1.4 - 6.5 /CUMM) 4.3 Absolute Lymphocytes (1.2 - 3.4 /CUMM) 0.8 L Absolute Monocytes (0.10 - 0.60 /CUMM) 0.6 Absolute Eosinophils (0.0 - 0.7 /CUMM) 0 Absolute Basophils (0.0 - 0.2 /CUMM) 0 PUBS MCHC (33.0 - 37.0 G/DL) 33.2 Last 24 Hours of [place] Results: Rapid flu swab November 01 positive for Influenza A Blood cultures 2 November 01 negative Urine culture November 01 negative Assessment/Plan Impression: Stable now on Tamiflu Day 1 of treatment for Influenza, which likely explains her recent fever, though her dyspnea and left lower lobe density on chest x-ray are more suggestive of pneumonia, possibly secondary to aspiration, for which she is on Unasyn (Day 1). Her rectal bleeding has recurred, presumably secondary to colitis, which was noted on her CT of the abdomen and pelvis. Suggestion: 1. Obtain records from her recent hospitalization at [facility] 2. Repeat stool for C. difficile 3. GI Follow-up 4. Continue Unasyn and Tamiflu
[2017-11-02 14:07] VITALS: BP 130/70
--- NOTE | 2017-11-02 18:47 | PN- Gastroenterology ---
Assessment/Plan Assessment/Recommendations: Bloody diarrhea/colitis: Was seemingly in resolution. Now on antibiotics for presumed pneumonia, which will precipitate diarrhea. Patient claims to have seen blood, but not evident on my evaluation. Nausea may be related to medications, pneumonia, influenza, etc. Recommendations * Low fiber diet * Stool for C. difficile toxin * Possible inpatient colonoscopy after the weekend. We will follow the patient' s progress over the weekend, both in terms of diarrhea/bleeding as well as respiratory status. This has been discussed with the patient. Subjective Subjective: Advanced to reevaluate the patient. The patient had transient nausea not related to meals. She's had abdominal "gas " but not severe pain. She continues to have loose bowel movements, and is on antibiotics currently. She states that her diarrhea is bloody. Objective Vital Signs and I&Os Vital Signs Date Time Temp Pulse Resp B/P B/P Pulse O2 O2 Flow FiO2 Mean Ox Delivery Rate 11/02 1503 Nasal 3.0L Cannula 11/02 1428 98.7 11/02 1407 98.7 91 20 130/70 96 11/02 1235 100.6 11/02 1159 100.6 11/02 0830 97.8 53 20 122/68 11/02 0800 98 Nasal 3.0L Cannula 11/02 0659 97.8 53 20 122/68 98 Nasal 2.0L Cannula 11/02 0436 98 Nasal 3.5L Cannula 11/02 0000 92 Nasal 3.5L Cannula 11/01 2338 98.5 11/01 2225 100.5 62 20 138/80 92 Nasal Cannula 11/01 2203 100.5 Intake & Output 11/02 1600 11/02 0400 11/01 1600 11/01 0400 10/31 1600 10/31 0400 Intake Total 285 407 1404 300 1930 590 Output Total 1501 1250 Balance -617 504 5803 300 680 590 Intake, IV 220 100 771 9025 450 Intake, Oral 787 461 3263 300 730 140 Number 2 Bowel Movements Output, Stool 1 Output, Urine 1500 1250 Patient 185 lb Weight Physical Exam: Abdomen soft, nondistended, nontender Current Medications: Current Medications Sig/Irving Start time Last Medication Dose Route Stop Time Status Admin Acetaminophen 650 MG .STK-MED ONE 11/01 2136 DC PO 11/01 2137 Acetaminophen 650 MG Q6P PRN 01/15 0215 AC 11/02 PO 1235 Albuterol Sulfate 3 ML EVERY 4 HRS/AWAKE .. 11/02 1515 AC INH Ampicillin Sodium/ 1,500 MG Q6 11/01 1800 AC 11/02 Sulbactam Sodium IV 1715 Sodium Chloride 100 ML Bupropion HCl 300 MG DAILY 10/29 1000 AC 11/02 PO 0823 Dextrose 25 GM ONCE 10/30 1300 AC 10/30 IV 1312 Dicyclomine HCl 20 MG 4 TIMES/DAY PRN 10/30 0100 AC PO Fluoxetine HCl 40 MG DAILY 10/29 1000 AC 11/02 PO 0830 Folic Acid 2 MG DAILY 10/31 1537 11/02 PO 0844 Insulin Aspart 0 TIDAC 11/01 0800 11/02 SC 1711 Insulin Detemir 10 UNITS BID 10/30 2200 11/02 SC 0827 Lisinopril 10 MG DAILY 10/31 1219 AC 11/02 PO 0830 Morphine Sulfate 60 MG Q8 10/29 0600 11/02 PO 1435 Morphine Sulfate 2 MG Q8P PRN 10/29 0245 11/01 IV 1042 Nicotine 21 MG DAILY 10/29 0230 11/02 TOP 0826 Omeprazole 40 MG DAILY AC 10/31 1100 AC 11/02 PO 0640 Ondansetron HCl 4 MG Q8P PRN 10/29 0515 11/02 PO 1234 Oseltamivir Phosphate 75 MG BID 11/01 2230 AC 11/02 PO 11/05 222 0830 Oxycodone/ 1 TAB Q6P PRN 10/29 0245 AC 11/01 Acetaminophen PO 1320 Prednisone 5 MG DAILY 11/02 1000 11/02 PO 0829 Trazodone HCl 100 MG AT BEDTIME 10/29 2345 11/01 PO 2229 Results Pertinent Lab Results: Laboratory Tests 11/02 11/01 11/01 0430 1305 1126 Chemistry Sodium (137 - 145 mmol/L) 140 Potassium (3.5 - 5.1 mmol/L) 4.2 Chloride (98 - 107 mmol/L) 97 L Carbon Dioxide (22 - 30 mmol/L) 33 H Anion Gap (5 - 16) 10 BUN (7 - 17 mg/dL) 8 Creatinine (0.5 - 1.0 mg/dL) 0.6 Estimated GFR (>60 ml/min) > 60 BUN/Creatinine Ratio (7 - 25 %) 13.3 Lactic Acid (0.7 - 2.1 mmol/L) 1.9 Cancelled Coagulation D-Dimer High Sensitivty (0 - 243 ng/ml) 352 H Hematology CBC w Diff NO MAN DIFF REQ WBC (4.8 - 10.8 /CUMM) 5.7 RBC (4.20 - 5.40 /CUMM) 3.54 L Hgb (12.0 - 16.0 G/DL) 11.8 L Hct (37 - 47 %) 35.6 L MCV (81.0 - 99.0 FL) 100.5 H MCH (27.0 - 31.0 PG) 33.3 H RDW (11.5 - 14.5 %) 15.3 H Plt Count (130 - 400 /CUMM) 145 MPV (7.4 - 10.4 FL) 9.0 Gran % (42.2 - 75.2 %) 75.3 H Lymphocytes % (20.5 - 51.1 %) 14.0 L Monocytes % (1.7 - 9.3 %) 9.9 H Eosinophils % (0 - 5 %) 0.3 Basophils % (0.0 - 2.0 %) 0.5 Absolute Granulocytes (1.4 - 6.5 /CUMM) 4.3 Absolute Lymphocytes (1.2 - 3.4 /CUMM) 0.8 L Absolute Monocytes (0.10 - 0.60 /CUMM) 0.6 Absolute Eosinophils (0.0 - 0.7 /CUMM) 0 Absolute Basophils (0.0 - 0.2 /CUMM) 0 PUBS MCHC (33.0 - 37.0 G/DL) 33.2 11/01 11/01 0953 0900 Serology Virus Culture Pending Urines Urine Color (YEL,AMB,STR) YEL Urine Clarity (CLEAR) CLEAR Urine pH (5.0 - 8.0) 6.0 Ur Specific [place] (1.001 - 1.035) >= 1.030 Urine Protein (NEG,<30 MG/DL) NEG Urine Ketones (NEG) NEG Urine Nitrite (NEG) NEG Urine Bilirubin (NEG) NEG Urine Urobilinogen (0.1 - 1.0 EU/dl) 0.2 Ur Leukocyte Esterase (NEG) NEG Ur Microscopic EXAM NOT REQUIRED Urine Hemoglobin (NEG) NEG Urine Glucose (N MG/DL) 100 H 11/01 10/31 0757 0815 Chemistry Sodium (137 - 145 mmol/L) 135 L 140 Potassium (3.5 - 5.1 mmol/L) 3.6 3.2 L Chloride (98 - 107 mmol/L) 97 L 102 Carbon Dioxide (22 - 30 mmol/L) 28 31 H Anion Gap (5 - 16) 10 8 BUN (7 - 17 mg/dL) 8 6 L Creatinine (0.5 - 1.0 mg/dL) 0.6 0.5 Estimated GFR (>60 ml/min) > 60 > 60 BUN/Creatinine Ratio (7 - 25 %) 13.3 12.0 Hematology CBC w Diff NO MAN DIFF REQ NO MAN DIFF REQ WBC (4.8 - 10.8 /CUMM) 6.7 6.3 RBC (4.20 - 5.40 /CUMM) 3.47 L 3.31 L Hgb (12.0 - 16.0 G/DL) 11.5 L 11.1 L Hct (37 - 47 %) 34.6 L 33.4 L MCV (81.0 - 99.0 FL) 99.9 H 101.0 H MCH (27.0 - 31.0 PG) 33.3 H 33.5 H RDW (11.5 - 14.5 %) 15.3 H 15.1 H Plt Count (130 - 400 /CUMM) 151 146 MPV (7.4 - 10.4 FL) 9.0 8.8 Gran % (42.2 - 75.2 %) 75.0 61.6 Lymphocytes % (20.5 - 51.1 %) 9.7 L 26.3 Monocytes % (1.7 - 9.3 %) 14.1 H 9.5 H Eosinophils % (0 - 5 %) 0.9 2.2 Basophils % (0.0 - 2.0 %) 0.3 0.4 Absolute Granulocytes (1.4 - 6.5 /CUMM) 5.0 3.9 Absolute Lymphocytes (1.2 - 3.4 /CUMM) 0.6 L 1.7 Absolute Monocytes (0.10 - 0.60 /CUMM) 0.9 H 0.6 Absolute Eosinophils (0.0 - 0.7 /CUMM) 0.1 0.1 Absolute Basophils (0.0 - 0.2 /CUMM) 0 0 PUBS MCHC (33.0 - 37.0 G/DL) 33.3 33.2 Imaging/Other Studies: Examination of stool in the toilet: Light brown, loose, without evident blood
[2017-11-02 22:11] VITALS: BP 140/70
[2017-11-03 02:00] VITALS: BP 130/68
[2017-11-03 07:22] VITALS: BP 124/68
[2017-11-03 08:33] LABS: ABSOLUTE BASOPHIL COUNT 0 /CUMM (0.0-0.2); ABSOLUTE EOSINOPHIL COUNT 0.1 /CUMM (0.0-0.7); ABSOLUTE LYMPH COUNT 1.2 /CUMM (1.2-3.4); ABSOLUTE MONOCYTE COUNT 0.5 /CUMM (0.10-0.60); BASOPHIL % 0.4 % (0.0-2.0); EOSINOPHIL % 1.6 % (0-5); GRANULOCYTE % 68.5 % (42.2-75.2); HEMATOCRIT 32.3 % (37-47); MEAN CORPUSCULAR HGB 33.7 PG (27.0-31.0); MEAN CORPUSCULAR HGB CONC 33.5 G/DL (33.0-37.0); MEAN CORPUSCULAR VOLUME 100.7 FL (81.0-99.0); MEAN PLATELET VOLUME 9.6 FL (7.4-10.4); PLATELET COUNT 152 /CUMM (130-400); RED BLOOD CELL CT 3.21 /CUMM (4.20-5.40); WHITE BLOOD CELL COUNT 5.9 /CUMM (4.8-10.8)
--- NOTE | 2017-11-03 09:00 | PN- Housestaff ---
Any DIAZ,Enma 11/03/17 0900: Subjective Follow-up For: Colitis Flu Aspiration pneumonia Subjective: Seen and examined at bedside Patient reportedly had 2 loose bowel movements since yesterday without any blood. She did have abdominal pain however overall condition is getting better. Denies any nausea/vomiting Review of Systems Constitutional: Reports: see HPI. Comments: Otherwise negative Objective Last 24 Hrs of Vital Signs/I&O Vital Signs Date Time Temp Pulse Resp B/P B/P Pulse O2 O2 Flow FiO2 Mean Ox Delivery Rate 11/03 0722 98.9 68 18 124/68 94 Nasal 3.0L Cannula 11/03 0200 98.1 58 18 130/68 94 Room Air 11/03 0026 99.9 11/03 0000 Nasal 3.0L Cannula 11/02 2355 100.3 11/02 2310 100.3 11/02 2211 102.7 67 20 140/70 92 11/02 2131 102.7 11/02 1930 92 Nasal 3.0L Cannula 11/02 1600 Nasal 3.0L Cannula 11/02 1503 Nasal 3.0L Cannula 11/02 1428 98.7 11/02 1407 98.7 91 20 130/70 96 11/02 1235 100.6 11/02 1159 100.6 Intake & Output 11/03 1600 11/03 0800 11/03 0000 Intake Total 560 260 Output Total Balance 560 260 Intake, Oral 560 260 Physical Exam General Appearance: Alert, Oriented X3, Cooperative, No Acute Distress Skin: No Rashes, No Breakdown HEENT: Atraumatic, PERRLA, EOMI Neck: Supple Cardiovascular: Normal S1, Normal S2 Lungs: Clear to Auscultation, Normal Air Movement Abdomen: Normal Bowel Sounds, Soft, No Tenderness Neurological: Strength at 5/5 X4 Ext, Normal Tone, Sensation Intact Extremities: No Clubbing, No Cyanosis, No Edema Current Medications: Current Medications Sig/Irving Start time Last Medication Dose Route Stop Time Status Admin Acetaminophen 650 MG .STK-MED ONE 11/02 2126 DC PO 11/02 2127 Acetaminophen 650 MG .STK-MED ONE 11/02 1223 DC PO 11/02 1224 Acetaminophen 650 MG Q6P PRN 10/29 0215 AC 11/02 PO 213 Albuterol Sulfate 3 ML EVERY 4 HRS/AWAKE .. 11/02 1515 AC INH Ampicillin Sodium/ 1,500 MG Q6 11/01 1800 AC 11/03 Sulbactam Sodium IV 0604 Sodium Chloride 100 ML Bupropion HCl 300 MG DAILY 10/29 1000 AC 11/02 PO 0823 Dextrose 25 GM ONCE 10/30 1300 AC 10/30 IV 1312 Dicyclomine HCl 20 MG 4 TIMES/DAY PRN 10/30 0100 AC PO Fluoxetine HCl 40 MG DAILY 10/29 1000 AC 11/02 PO 0830 Folic Acid 2 MG DAILY 10/31 1537 AC 11/02 PO 0844 Hydromorphone HCl 2 MG .STK-MED ONE 11/02 1225 DC IM 11/02 1226 Insulin Aspart 3 UNITS ONCE ONE 11/02 2130 DC 11/02 SC 11/02 2130 213 Insulin Aspart 0 TIDAC 11/01 0800 11/02 SC 1711 Insulin Detemir 10 UNITS BID 10/30 2200 11/02 SC 2130 Lisinopril 10 MG DAILY 10/31 1219 AC 11/02 PO 0830 Morphine Sulfate 60 MG Q8 10/29 0600 AC 11/03 PO 0601 Morphine Sulfate 2 MG Q8P PRN 10/29 0245 11/03 IV 0035 Nicotine 21 MG DAILY 10/29 0230 11/02 TOP 0826 Omeprazole 40 MG DAILY AC 10/31 1100 AC 11/03 PO 0602 Ondansetron HCl 4 MG Q8P PRN 10/29 0515 11/02 PO 1234 Oseltamivir Phosphate 75 MG BID 11/01 2230 AC 11/02 PO 11/05 222 2132 Oxycodone/ 1 TAB Q6P PRN 10/29 0245 11/03 Acetaminophen PO 0429 Prednisone 5 MG DAILY 11/02 1000 AC 11/02 PO 0829 Trazodone HCl 100 MG AT BEDTIME 10/29 2345 11/02 PO 2131 Last 24 Hrs of Lab/[place] Results Last 24 Hrs of Labs/Mics: Laboratory Tests 11/03/17 0710: Anion Gap 10, Estimated GFR > 60, BUN/Creatinine Ratio 16.0, CBC w Diff NO MAN DIFF REQ, RBC 3.21 L, MCV 100.7 H, MCH 33.7 H, RDW 15.0 H, MPV 9.6, Gran % 68.5, Lymphocytes % 20.4 L, Monocytes % 9.1, Eosinophils % 1.6, Basophils % 0.4 , Absolute Granulocytes 4.0, Absolute Lymphocytes 1.2, Absolute Monocytes 0.5, Absolute Eosinophils 0.1, Absolute Basophils 0, PUBS MCHC 33.5 Microbiology 11/03 005 STOOL: Clostridium difficile Toxin A & B - COMP Assessment/Plan Assessment: Patient is a 52-year-old woman with a past medical history significant for rheumatoid arthritis (on methotrexate and prednisone), history of type 1 diabetes mellitus on insulin pump, history of anxiety depression, history of hypertension and hyperlipidemia, history of chronic pain syndrome from rheumatoid arthritis on opiates presented to the ED for evaluation of vomiting and bloody stools. Impression/plan #Vomiting with bright red blood per rectum(likely lower GI bleed/infectious colitis: She has no bowel movements for couple of days but today she again had a loose bowel movement with guerline blood in it. GI was again notified. #High-grade fever/flu She spiked a Tmax of of 103.1 11/02/16. Her influenza A came back positive and patient was started on Tamiflu. #Difficulty swallowing * GI consult appreciated * Esophagogram showed acid reflux but no motility disorder. We will start her on PPI . Starting on low fiber diet and tolerating well * She also developed aspiration pneumonia and was started on Unasyn. We will continue her Unasyn for now. * Colonoscopy as outpatient * Possible discharge tomorrow if stable #History of hypertension hyperlipidemia * Continue statin and we will resume her home dose of lisinopril. #Rheumatoid arthritis (on methotrexate and prednisone) * Patient was started on stress dose of hydrocortisone 25 mg daily she received 3 doses and also she was on 5 mg of prednisone which was her home dose. Patient was given 10 mg of prednisone and weyesterday and she will continue her home dose of prednisone 5 mg daily. * Hold methotrexate in the setting of infectious colitis. # history of type 1 diabetes mellitus on insulin pump * On insulin pump at home * Follow endocrine recommendations * Accu-Cheks , #history of anxiety depression * Continue home medications #Chronic pain syndrome due to rheumatoid arthritis(history of opioid dependence) * Continue extended release morphine sulfate 60 mg 3 times a day along with IV morphine for breakthrough pain and Percocet. DVT prophylaxis Alps patient is full code Problem List: 1. Colitis 2. Diarrhea 3. Aspiration pneumonia 4. Influenza A Pain Ratin Pain Location: abdominal pain Pain Goal: Pain 4 or less Pain Plan: tylenol prn, percocet Tomorrow's Labs & Rationales: none Mahesh Lehman 11/03/17 1311: Attending MD Review Statement Attending Statement Attending MD Statement: examined this patient, discuss w/resident/PA/GEOGRAPHIC INFORMATION SYSTEM ANALYST, agreed w/resident/PA/GEOGRAPHIC INFORMATION SYSTEM ANALYST, discussed with family, reviewed EMR data (avail), discussed with nursing, discussed with case mgmt, reviewed images, amended to note Attending Assessment/Plan: 52 y/o F with pmh sig for rheumatoid arthritis (on methotrexate and prednisone), history of type 1 diabetes mellitus on insulin pump, history of anxiety depression, history of hypertension and hyperlipidemia, history of chronic pain syndrome admitted with vomiting and bloody diarrhea and found to have diffuse colitis. During her hospital course patient has also developed pneumonia which is possibly aspiration as well as influenza positive. She continues to complain of bloody diarrhea. Continue with unasyn andTamiflu. Advance diet as tolerated, planned colonoscopy on Sunday. Insulin management per endocrinology. NPO past MN Sunday. Patient has been started back on her home dose of prednisone. Continue the rest of the medications. DVT px; ALPS.
--- NOTE | 2017-11-03 09:56 | PN- Diabetes ---
Assessment/Plan Assessment: Patient is a 52-year-old woman with a past medical history significant for rheumatoid arthritis (on methotrexate and prednisone 5 mg daily ), history of type 1 diabetes mellitus on insulin pump, history of anxiety depression, history of hypertension and hyperlipidemia, history of chronic pain syndrome on opiates presented to the ED for evaluation of vomiting and bloody stools. Patient has been having intermittent vomiting with loose watery stools for the last [address] scan showed marked colonic wall thickening involving the distal transverse colon, splenic flexure and the descending colon. Patient's rapid flu is positive for influenza A and she is on Tamiflu. There is also possible pneumonia on chest x-ray and she is on Augmentin. She tolerated clear liquit diet and her diet was advanced to low fiber diet. This morning she states that she was able to eat toast and keep it down. She is on Levemir 10 units twice a day, Novolog coverage before meals and Novolog coverage at bedtime. Her fingerstick blood sugar this morning is 232.. She was on stress dose of steroids. Currently she is on prednisone 5 mg daily. Plan: Suggest continue the present insulin regimen. She is on Levemir 10 units twice a day and sliding scale NovoLog before meals. The patient's appetite is only fair. We will observe her blood sugars today before making further changes. Subjective Subjective: Starting to feel a little better Review of Systems Constitutional: Reports: chills. Cardiovascular: Denies: edema. Respiratory: Reports: cough, short of breath. Gastrointestinal: Denies: vomiting. Skin: Reports: no symptoms. Objective Last 24 Hrs of Vital Signs/I&O Vital Signs Date Time Temp Pulse Resp B/P B/P Pulse O2 O2 Flow FiO2 Mean Ox Delivery Rate 11/03 0939 98.9 68 18 124/68 11/03 0722 98.9 68 18 124/68 94 Nasal 3.0L Cannula 11/03 0200 98.1 58 18 130/68 94 Room Air 11/03 0026 99.9 11/03 0000 Nasal 3.0L Cannula 11/02 2355 100.3 11/02 2310 100.3 11/02 2211 102.7 67 20 140/70 92 11/02 2131 102.7 11/02 1930 92 Nasal 3.0L Cannula 11/02 1600 Nasal 3.0L Cannula 11/02 1503 Nasal 3.0L Cannula 11/02 1428 98.7 11/02 1407 98.7 91 20 130/70 96 11/02 1235 100.6 11/02 1159 100.6 Intake & Output 11/03 1600 11/03 0800 11/03 0000 Intake Total 560 260 Output Total Balance 560 260 Intake, Oral 560 260 Vital Signs Date Time Temp Pulse Resp B/P B/P Pulse O2 O2 Flow FiO2 Mean Ox Delivery Rate 11/03 0939 98.9 68 18 124/68 11/03 0722 98.9 68 18 124/68 94 Nasal 3.0L Cannula 11/03 0200 98.1 58 18 130/68 94 Room Air 11/03 0026 99.9 11/03 0000 Nasal 3.0L Cannula 11/02 2355 100.3 11/02 2310 100.3 11/02 2211 102.7 67 20 140/70 92 11/02 2131 102.7 11/02 1930 92 Nasal 3.0L Cannula 11/02 1600 Nasal 3.0L Cannula 11/02 1503 Nasal 3.0L Cannula 11/02 1428 98.7 11/02 1407 98.7 91 20 130/70 96 11/02 1235 100.6 11/02 1159 100.6 Intake & Output 11/03 1600 11/03 0800 11/03 0000 Intake Total 560 260 Output Total Balance 560 260 Intake, Oral 560 260 Physical Exam General Appearance: alert, awake Head: normal appearance Neck: normal inspection Respiratory: normal breath sounds Cardiovascular: regular rate/rhythm Current Medications: Current Medications Sig/Irving Start time Last Medication Dose Route Stop Time Status Admin Acetaminophen 650 MG .STK-MED ONE 11/02 2126 DC PO 11/02 2127 Acetaminophen 650 MG .STK-MED ONE 11/02 1223 DC PO 11/02 1224 Acetaminophen 650 MG Q6P PRN 10/29 0215 AC 11/02 PO 2131 Albuterol Sulfate 3 ML EVERY 4 HRS/AWAKE .. 11/02 1515 AC INH Ampicillin Sodium/ 1,500 MG Q6 11/01 1800 AC 11/03 Sulbactam Sodium IV 0604 Sodium Chloride 100 ML Bupropion HCl 300 MG DAILY 10/29 1000 AC 11/03 PO 0938 Dextrose 25 GM ONCE 10/30 1300 AC 10/30 IV 1312 Dicyclomine HCl 20 MG 4 TIMES/DAY PRN 10/30 0100 AC PO Fluoxetine HCl 40 MG DAILY 10/29 1000 AC 11/03 PO 0939 Folic Acid 2 MG DAILY 10/31 1537 AC 11/03 PO 0940 Hydromorphone HCl 2 MG .STK-MED ONE 11/02 1225 DC IM 11/02 1226 Insulin Aspart 3 UNITS ONCE ONE 11/02 2130 DC 11/02 SC 11/02 213 213 Insulin Aspart 0 TIDAC 11/01 0800 AC 11/02 SC 1711 Insulin Detemir 10 UNITS BID 10/30 2200 AC 11/03 SC 0940 Lisinopril 10 MG DAILY 10/31 1219 AC 11/03 PO 0939 Morphine Sulfate 60 MG Q8 10/29 0600 AC 11/03 PO 0601 Morphine Sulfate 2 MG Q8P PRN 10/29 0245 AC 11/03 IV 0955 Nicotine 21 MG DAILY 10/29 0230 AC 11/03 TOP 0940 Omeprazole 40 MG DAILY AC 10/31 1100 AC 11/03 PO 0602 Ondansetron HCl 4 MG Q8P PRN 10/29 0515 AC 11/02 PO 1234 Oseltamivir Phosphate 75 MG BID 11/01 2230 AC 11/03 PO 11/05 222 0940 Oxycodone/ 1 TAB Q6P PRN 10/29 0245 AC 11/03 Acetaminophen PO 0956 Prednisone 5 MG DAILY 11/02 1000 AC 11/03 PO 0938 Trazodone HCl 100 MG AT BEDTIME 10/29 2345 AC 11/02 PO 2131 Findings Pertinent Lab/[place] Results: Laboratory Tests 11/03 0710 Chemistry Sodium (137 - 145 mmol/L) 136 L Potassium (3.5 - 5.1 mmol/L) 3.7 Chloride (98 - 107 mmol/L) 95 L Carbon Dioxide (22 - 30 mmol/L) 32 H Anion Gap (5 - 16) 10 BUN (7 - 17 mg/dL) 8 Creatinine (0.5 - 1.0 mg/dL) 0.5 Estimated GFR (>60 ml/min) > 60 BUN/Creatinine Ratio (7 - 25 %) 16.0 Hematology CBC w Diff NO MAN DIFF REQ WBC (4.8 - 10.8 /CUMM) 5.9 RBC (4.20 - 5.40 /CUMM) 3.21 L Hgb (12.0 - 16.0 G/DL) 10.8 L Hct (37 - 47 %) 32.3 L MCV (81.0 - 99.0 FL) 100.7 H MCH (27.0 - 31.0 PG) 33.7 H RDW (11.5 - 14.5 %) 15.0 H Plt Count (130 - 400 /CUMM) 152 MPV (7.4 - 10.4 FL) 9.6 Gran % (42.2 - 75.2 %) 68.5 Lymphocytes % (20.5 - 51.1 %) 20.4 L Monocytes % (1.7 - 9.3 %) 9.1 Eosinophils % (0 - 5 %) 1.6 Basophils % (0.0 - 2.0 %) 0.4 Absolute Granulocytes (1.4 - 6.5 /CUMM) 4.0 Absolute Lymphocytes (1.2 - 3.4 /CUMM) 1.2 Absolute Monocytes (0.10 - 0.60 /CUMM) 0.5 Absolute Eosinophils (0.0 - 0.7 /CUMM) 0.1 Absolute Basophils (0.0 - 0.2 /CUMM) 0 PUBS MCHC (33.0 - 37.0 G/DL) 33.5
[2017-11-03 14:47] VITALS: BP 122/68
--- NOTE | 2017-11-03 17:52 | PN- Gastroenterology ---
Assessment/Plan Assessment/Recommendations: Bloody diarrhea/colitis: Was seemingly in resolution. Now on antibiotics for presumed pneumonia, which may precipitate diarrhea. Improved today without bowel movement. C. difficile toxin negative. Recommendations * Continue low fiber diet * At this time, will defer on colonoscopy. Optimally, would perform as outpatient in follow-up of colitis. Subjective Subjective: No abdominal pain, nausea, vomiting. No bowel movements today. No blood per rectum. The patient feels "gassy." Objective Vital Signs and I&Os Vital Signs Date Time Temp Pulse Resp B/P B/P Pulse O2 O2 Flow FiO2 Mean Ox Delivery Rate 11/03 1600 Nasal 3.0L Cannula 11/03 1447 98.7 77 20 122/68 98 11/03 1403 94 Nasal 3.0L Cannula 11/03 0939 98.9 68 18 124/68 11/03 0800 94 Nasal 3.0L Cannula 11/03 0722 98.9 68 18 124/68 94 Nasal 3.0L Cannula 11/03 0200 98.1 58 18 130/68 94 Room Air 11/03 0026 99.9 11/03 0000 Nasal 3.0L Cannula 11/02 2355 100.3 11/02 2310 100.3 11/02 2211 102.7 67 20 140/70 92 11/02 2131 102.7 11/02 1930 92 Nasal 3.0L Cannula Intake & Output 11/03 1600 11/03 0400 11/02 1600 11/02 0400 11/01 1600 11/01 0400 Intake Total 560 260 359 083 7174 300 Output Total 600 1501 Balance -40 260 -014 765 9772 300 Intake, IV 220 225 750 Intake, Oral 560 260 812 479 5248 300 Number 2 Bowel Movements Output, Stool 1 Output, Urine 600 1500 Patient 185 lb Weight Physical Exam: Abdomen soft, benign. Results Pertinent Lab Results: Laboratory Tests 11/03 11/02 0710 0430 Chemistry Sodium (137 - 145 mmol/L) 136 L 140 Potassium (3.5 - 5.1 mmol/L) 3.7 4.2 Chloride (98 - 107 mmol/L) 95 L 97 L Carbon Dioxide (22 - 30 mmol/L) 32 H 33 H Anion Gap (5 - 16) 10 10 BUN (7 - 17 mg/dL) 8 8 Creatinine (0.5 - 1.0 mg/dL) 0.5 0.6 Estimated GFR (>60 ml/min) > 60 > 60 BUN/Creatinine Ratio (7 - 25 %) 16.0 13.3 Coagulation D-Dimer High Sensitivty (0 - 243 ng/ml) 352 H Hematology CBC w Diff NO MAN DIFF REQ NO MAN DIFF REQ WBC (4.8 - 10.8 /CUMM) 5.9 5.7 RBC (4.20 - 5.40 /CUMM) 3.21 L 3.54 L Hgb (12.0 - 16.0 G/DL) 10.8 L 11.8 L Hct (37 - 47 %) 32.3 L 35.6 L MCV (81.0 - 99.0 FL) 100.7 H 100.5 H MCH (27.0 - 31.0 PG) 33.7 H 33.3 H RDW (11.5 - 14.5 %) 15.0 H 15.3 H Plt Count (130 - 400 /CUMM) 152 145 MPV (7.4 - 10.4 FL) 9.6 9.0 Gran % (42.2 - 75.2 %) 68.5 75.3 H Lymphocytes % (20.5 - 51.1 %) 20.4 L 14.0 L Monocytes % (1.7 - 9.3 %) 9.1 9.9 H Eosinophils % (0 - 5 %) 1.6 0.3 Basophils % (0.0 - 2.0 %) 0.4 0.5 Absolute Granulocytes (1.4 - 6.5 /CUMM) 4.0 4.3 Absolute Lymphocytes (1.2 - 3.4 /CUMM) 1.2 0.8 L Absolute Monocytes (0.10 - 0.60 /CUMM) 0.5 0.6 Absolute Eosinophils (0.0 - 0.7 /CUMM) 0.1 0 Absolute Basophils (0.0 - 0.2 /CUMM) 0 0 PUBS MCHC (33.0 - 37.0 G/DL) 33.5 33.2 11/01 11/01 11/01 1305 1126 0953 Chemistry Lactic Acid (0.7 - 2.1 mmol/L) 1.9 Cancelled Serology Virus Culture Pending 11/01 11/01 0900 0757 Chemistry Sodium (137 - 145 mmol/L) 135 L Potassium (3.5 - 5.1 mmol/L) 3.6 Chloride (98 - 107 mmol/L) 97 L Carbon Dioxide (22 - 30 mmol/L) 28 Anion Gap (5 - 16) 10 BUN (7 - 17 mg/dL) 8 Creatinine (0.5 - 1.0 mg/dL) 0.6 Estimated GFR (>60 ml/min) > 60 BUN/Creatinine Ratio (7 - 25 %) 13.3 Hematology CBC w Diff NO MAN DIFF REQ WBC (4.8 - 10.8 /CUMM) 6.7 RBC (4.20 - 5.40 /CUMM) 3.47 L Hgb (12.0 - 16.0 G/DL) 11.5 L Hct (37 - 47 %) 34.6 L MCV (81.0 - 99.0 FL) 99.9 H MCH (27.0 - 31.0 PG) 33.3 H RDW (11.5 - 14.5 %) 15.3 H Plt Count (130 - 400 /CUMM) 151 MPV (7.4 - 10.4 FL) 9.0 Gran % (42.2 - 75.2 %) 75.0 Lymphocytes % (20.5 - 51.1 %) 9.7 L Monocytes % (1.7 - 9.3 %) 14.1 H Eosinophils % (0 - 5 %) 0.9 Basophils % (0.0 - 2.0 %) 0.3 Absolute Granulocytes (1.4 - 6.5 /CUMM) 5.0 Absolute Lymphocytes (1.2 - 3.4 /CUMM) 0.6 L Absolute Monocytes (0.10 - 0.60 /CUMM) 0.9 H Absolute Eosinophils (0.0 - 0.7 /CUMM) 0.1 Absolute Basophils (0.0 - 0.2 /CUMM) 0 PUBS MCHC (33.0 - 37.0 G/DL) 33.3 Urines Urine Color (YEL,AMB,STR) YEL Urine Clarity (CLEAR) CLEAR Urine pH (5.0 - 8.0) 6.0 Ur Specific Dalton (1.001 - 1.035) >= 1.030 Urine Protein (NEG,<30 MG/DL) NEG Urine Ketones (NEG) NEG Urine Nitrite (NEG) NEG Urine Bilirubin (NEG) NEG Urine Urobilinogen (0.1 - 1.0 EU/dl) 0.2 Ur Leukocyte Esterase (NEG) NEG Ur Microscopic EXAM NOT REQUIRED Urine Hemoglobin (NEG) NEG Urine Glucose (N MG/DL) 100 H
[2017-11-03 22:10] VITALS: BP 142/62
[2017-11-04 07:00] VITALS: BP 134/72
[2017-11-04 09:19] LABS: ABSOLUTE BASOPHIL COUNT 0 /CUMM (0.0-0.2); ABSOLUTE EOSINOPHIL COUNT 0.1 /CUMM (0.0-0.7); ABSOLUTE GRANULOCYTE CT 4.3 /CUMM (1.4-6.5); ABSOLUTE LYMPH COUNT 1.4 /CUMM (1.2-3.4); ABSOLUTE MONOCYTE COUNT 0.7 /CUMM (0.10-0.60); BASOPHIL % 0 % (0.0-2.0); EOSINOPHIL % 1.3 % (0-5); GRANULOCYTE % 66.5 % (42.2-75.2); HEMATOCRIT 32.4 % (37-47); MEAN CORPUSCULAR VOLUME 100.2 FL (81.0-99.0); MEAN PLATELET VOLUME 9.5 FL (7.4-10.4); PLATELET COUNT 176 /CUMM (130-400); RBC DISTRIBUTION WIDTH 15.5 % (11.5-14.5); RED BLOOD CELL CT 3.24 /CUMM (4.20-5.40); WHITE BLOOD CELL COUNT 6.4 /CUMM (4.8-10.8)
--- NOTE | 2017-11-04 09:25 | PN- Housestaff ---
See Addendum Subjective Follow-up For: Colitis Flu Aspiration pneumonia Subjective: Patient was seen and examined today. Patient alert, awake, oriented 3. She stated that her difficulty swallowing almost the same, but she started to tolerate the regular diet slowly. Patient states her breathing slightly improved she still on 3 L nasal cannula oxygen with oxygen saturation more than 91%, she still reports difficulty swallowing and breathing disorder throat she stated as something in her throat. She denies any recent diarrhea. She is currently afebrile. Review of Systems Constitutional: Denies: chills, fever, weakness. Cardiovascular: Denies: chest pain, palpitations. Respiratory: Reports: short of breath. Denies: cough, sputum production, wheezing. Gastrointestinal: Denies: abdominal pain, diarrhea, nausea, vomiting. Genitourinary: Denies: pain. Objective Last 24 Hrs of Vital Signs/I&O Vital Signs Date Time Temp Pulse Resp B/P B/P Pulse O2 O2 Flow FiO2 Mean Ox Delivery Rate 11/04 0954 84 134/72 11/04 0700 98.3 58 18 134/72 92 Nasal 3.0L Cannula 11/04 0000 Nasal 3.0L Cannula 11/03 2227 56 11/03 2210 99.1 52 19 142/62 94 Nasal 2.0L Cannula 11/03 1600 Nasal 3.0L Cannula 11/03 1447 98.7 77 20 122/68 98 11/03 1403 94 Nasal 3.0L Cannula Intake & Output 11/04 1600 11/04 0800 11/04 0000 Intake Total 660 930 Output Total 50 Balance 610 930 Intake, IV 300 130 Intake, Oral 360 800 Output, 50 Emesis Physical Exam General Appearance: Alert, Oriented X3, Cooperative, No Acute Distress Skin Temp/Moisture Exam: Warm/Dry HEENT: PERRLA, EOMI Neck: Supple Cardiovascular: Normal S1, Normal S2 Lungs: Normal Air Movement, decrease air entry bibasilar due to not taking good deep breath Abdomen: Normal Bowel Sounds, Soft, No Tenderness Extremities: No Cyanosis, No Edema Current Medications: Current Medications Sig/Irving Start time Last Medication Dose Route Stop Time Status Admin Acetaminophen 650 MG Q6P PRN 10/29 0215 AC 11/02 PO 2131 Albuterol Sulfate 3 ML EVERY 4 HRS/AWAKE .. 11/02 1515 AC INH Ampicillin Sodium/ 1,500 MG Q6 11/01 1800 AC 11/04 Sulbactam Sodium IV 0559 Sodium Chloride 100 ML Bupropion HCl 300 MG DAILY 10/29 1000 AC 11/04 PO 0954 Dextrose 25 GM ONCE 10/30 1300 AC 10/30 IV 1312 Dicyclomine HCl 20 MG 4 TIMES/DAY PRN 10/30 0100 AC PO Fluoxetine HCl 40 MG DAILY 10/29 1000 AC 11/04 PO 0954 Folic Acid 2 MG DAILY 10/31 1537 AC 11/04 PO 0954 Insulin Aspart 0 TIDAC/HS 11/03 2315 AC 11/03 SC 2320 Insulin Aspart 0 TIDAC 11/01 0800 DC 11/03 SC 1705 Insulin Detemir 10 UNITS BID 10/30 2200 AC 11/04 SC 0953 Lisinopril 10 MG DAILY 10/31 1219 AC 11/04 PO 0954 Morphine Sulfate 60 MG Q8 10/29 0600 AC 11/04 PO 0558 Morphine Sulfate 2 MG Q8P PRN 10/29 0245 AC 11/04 IV 0952 Nicotine 21 MG DAILY 10/29 0230 11/04 TOP 0953 Omeprazole 40 MG DAILY AC 10/31 1100 AC 11/04 PO 0557 Ondansetron HCl 4 MG .STK-MED ONE 11/04 0104 DC PO 11/04 0105 Ondansetron HCl 4 MG .STK-MED ONE 11/04 0059 DC IM 11/04 0100 Ondansetron HCl 4 MG Q8P PRN 10/29 0515 AC 11/04 PO 0104 Oseltamivir Phosphate 75 MG BID 11/01 2230 AC 11/04 PO 11/05 222 1002 Oxycodone/ 1 TAB Q6P PRN 10/29 0245 11/03 Acetaminophen PO 1634 Prednisone 5 MG DAILY 11/02 1000 AC 11/04 PO 0954 Trazodone HCl 100 MG AT BEDTIME 10/29 2345 AC 11/03 PO 2134 Last 24 Hrs of Lab/[place] Results Last 24 Hrs of Labs/Mics: Laboratory Tests 11/04/17 0814: Anion Gap 9, Estimated GFR > 60, BUN/Creatinine Ratio 12.0, CBC w Diff NO MAN DIFF REQ, RBC 3.24 L, MCV 100.2 H, MCH 33.0 H, RDW 15.5 H, MPV 9.5, Gran % 66.5, Lymphocytes % 21.9, Monocytes % 10.3 H, Eosinophils % 1.3, Basophils % 0, Absolute Granulocytes 4.3, Absolute Lymphocytes 1.4, Absolute Monocytes 0.7 H, Absolute Eosinophils 0.1, Absolute Basophils 0, PUBS MCHC 33.0 Microbiology 11/04 434 LOWER RESP: Respiratory Culture - RES 11/04 434 LOWER RESP: Gram Stain - RES Assessment/Plan Assessment: Patient is a 52-year-old woman with a past medical history significant for rheumatoid arthritis (on methotrexate and prednisone), history of type 1 diabetes mellitus on insulin pump, history of anxiety depression, history of hypertension and hyperlipidemia, history of chronic pain syndrome from rheumatoid arthritis on opiates presented to the ED for evaluation of vomiting and bloody stools. Impression/plan #Vomiting with bright red blood per rectum(likely lower GI bleed/infectious colitis: She has no bowel movements for couple of days but today she again had a loose bowel movement with guerline blood in it. GI was again notified. #High-grade fever/flu She spiked a Tmax of of 103.1 11/02/16. Her influenza A came back positive and patient was started on Tamiflu. #Difficulty swallowing * GI consult appreciated we'll discuss of possible colonoscopy to be done tomorrow * Esophagogram showed acid reflux but no motility disorder. * Continue on PPI and low fiber diet and tolerating well * We will continue her Unasyn for now. * We will continue Tamiflu for total 5 days. * RepLet potassium to keep it > 4 , CHECK her Mag and replate. #History of hypertension hyperlipidemia * Continue statin and we will resume her home dose of lisinopril. #Rheumatoid arthritis (on methotrexate and prednisone) * Patient was started on stress dose of hydrocortisone 25 mg daily she received 3 doses and also she was on 5 mg of prednisone which was her home dose. Patient was given 10 mg of prednisone and weyesterday and she will continue her home dose of prednisone 5 mg daily. * Hold methotrexate in the setting of infectious colitis. # history of type 1 diabetes mellitus on insulin pump * On insulin pump at home * Follow endocrine recommendations * Accu-Cheks , #history of anxiety depression * Continue home medications #Chronic pain syndrome due to rheumatoid arthritis(history of opioid dependence) * Continue extended release morphine sulfate 60 mg 3 times a day along with IV morphine for breakthrough pain and Percocet. DVT prophylaxis Alps patient is full code Problem List: 1. Aspiration pneumonia 2. Influenza A Pain Ratin Pain Location: joint Pain Goal: Pain 4 or less Pain Plan: same Tomorrow's Labs & Rationales: bep cbc
--- NOTE | 2017-11-04 10:26 | PN- Diabetes ---
Assessment/Plan Assessment: Patient is a 52-year-old woman with a past medical history significant for rheumatoid arthritis (on methotrexate and prednisone 5 mg daily ), history of type 1 diabetes mellitus on insulin pump, history of anxiety depression, history of hypertension and hyperlipidemia, history of chronic pain syndrome on opiates presented to the ED for evaluation of vomiting and bloody stools. Patient has been having intermittent vomiting with loose watery stools for the last [address] scan showed marked colonic wall thickening involving the distal transverse colon, splenic flexure and the descending colon. Patient's rapid flu is positive for influenza A and she is on Tamiflu. There is also possible pneumonia on chest x-ray and she is on Augmentin. The patient is on a diabetic diet. She is eating better.. This morning she states that she was able to eat most of her breakfast.. She is on Levemir 10 units twice a day, Novolog coverage before meals was adjusted yesterday. Her fingerstick blood sugar this morning is 184. She was on stress dose of steroids. Currently she is on prednisone 5 mg daily. Plan: Suggest continue the Levemir 10 units twice a day. Since the patient is eating better we should adjust her NovoLog sliding scale given before meals. NovoLog sliding scale before meals should be 80-150 give 2 units NovoLog, 151-200 give 4 units NovoLog, 201-250 give 6 units NovoLog, 251- 300 give 7 units NovoLog, 301-350 give 8 units NovoLog, 351-400 give 9 units NovoLog. Bedtime sliding scale NovoLog should stay the same. Continue to monitor sugars 4 times a day. Subjective Subjective: Starting to feel better Review of Systems Constitutional: Reports: chills. Cardiovascular: Denies: chest pain. Respiratory: Denies: short of breath. Gastrointestinal: Reports: nausea. Denies: abdominal pain, vomiting. Skin: Reports: no symptoms. Objective Last 24 Hrs of Vital Signs/I&O Vital Signs Date Time Temp Pulse Resp B/P B/P Pulse O2 O2 Flow FiO2 Mean Ox Delivery Rate 11/04 0954 84 134/72 11/04 0700 98.3 58 18 134/72 92 Nasal 3.0L Cannula 11/04 0000 Nasal 3.0L Cannula 11/03 2227 56 11/030 99.1 52 19 142/62 94 Nasal 2.0L Cannula 11/03 1600 Nasal 3.0L Cannula 11/03 1447 98.7 77 20 122/68 98 11/03 1403 94 Nasal 3.0L Cannula Intake & Output 11/04 1600 11/04 0800 11/04 0000 Intake Total 660 930 Output Total 50 Balance 610 930 Intake, IV 300 130 Intake, Oral 360 800 Output, 50 Emesis Vital Signs Date Time Temp Pulse Resp B/P B/P Pulse O2 O2 Flow FiO2 Mean Ox Delivery Rate 11/04 0954 84 134/72 11/04 0700 98.3 58 18 134/72 92 Nasal 3.0L Cannula 11/04 0000 Nasal 3.0L Cannula 11/03 2227 56 11/03 2210 99.1 52 19 142/62 94 Nasal 2.0L Cannula 11/03 1600 Nasal 3.0L Cannula 11/03 1447 98.7 77 20 122/68 98 11/03 1403 94 Nasal 3.0L Cannula Intake & Output 11/04 1600 11/04 0800 11/04 0000 Intake Total 660 930 Output Total 50 Balance 610 930 Intake, IV 300 130 Intake, Oral 360 800 Output, 50 Emesis Physical Exam General Appearance: alert, awake, comfortable Head: normal appearance Respiratory: normal breath sounds Cardiovascular: regular rate/rhythm Current Medications: Current Medications Sig/Irving Start time Last Medication Dose Route Stop Time Status Admin Acetaminophen 650 MG Q6P PRN 10/29 0215 AC 11/02 PO 2131 Albuterol Sulfate 3 ML EVERY 4 HRS/AWAKE .. 11/02 1515 AC INH Ampicillin Sodium/ 1,500 MG Q6 11/01 1800 AC 11/04 Sulbactam Sodium IV 0559 Sodium Chloride 100 ML Bupropion HCl 300 MG DAILY 10/29 1000 AC 11/04 PO 0954 Dextrose 25 GM ONCE 10/30 1300 AC 10/30 IV 1312 Dicyclomine HCl 20 MG 4 TIMES/DAY PRN 10/30 0100 AC PO Fluoxetine HCl 40 MG DAILY 10/29 1000 AC 11/04 PO 0954 Folic Acid 2 MG DAILY 10/31 1537 AC 11/04 PO 0954 Insulin Aspart 0 TIDAC/HS 11/03 2315 AC 11/03 SC 2320 Insulin Aspart 0 TIDAC 11/01 0800 DC 11/03 SC 1705 Insulin Detemir 10 UNITS BID 10/30 2200 AC 11/04 SC 0953 Lisinopril 10 MG DAILY 10/31 1219 AC 11/04 PO 0954 Morphine Sulfate 60 MG Q8 10/29 0600 AC 11/04 PO 0558 Morphine Sulfate 2 MG Q8P PRN 10/29 0245 AC 11/04 IV 0952 Nicotine 21 MG DAILY 10/29 0230 AC 11/04 TOP 0953 Omeprazole 40 MG DAILY AC 10/31 1100 AC 11/04 PO 0557 Ondansetron HCl 4 MG .STK-MED ONE 11/04 0104 DC PO 11/04 010 Ondansetron HCl 4 MG .STK-MED ONE 11/04 0059 DC IM 11/04 0100 Ondansetron HCl 4 MG Q8P PRN 10/29 0515 AC 11/04 PO 0104 Oseltamivir Phosphate 75 MG BID 11/01 2230 AC 11/04 PO 11/05 2229 1002 Oxycodone/ 1 TAB Q6P PRN 10/29 0245 AC 11/03 Acetaminophen PO 1634 Prednisone 5 MG DAILY 11/02 1000 AC 11/04 PO 0954 Trazodone HCl 100 MG AT BEDTIME 10/29 2345 AC 11/03 PO 2134 Findings Pertinent Lab/[place] Results: Laboratory Tests 11/04 0814 Chemistry Sodium (137 - 145 mmol/L) 136 L Potassium (3.5 - 5.1 mmol/L) 3.6 Chloride (98 - 107 mmol/L) 94 L Carbon Dioxide (22 - 30 mmol/L) 32 H Anion Gap (5 - 16) 9 BUN (7 - 17 mg/dL) 6 L Creatinine (0.5 - 1.0 mg/dL) 0.5 Estimated GFR (>60 ml/min) > 60 BUN/Creatinine Ratio (7 - 25 %) 12.0 Hematology CBC w Diff NO MAN DIFF REQ WBC (4.8 - 10.8 /CUMM) 6.4 RBC (4.20 - 5.40 /CUMM) 3.24 L Hgb (12.0 - 16.0 G/DL) 10.7 L Hct (37 - 47 %) 32.4 L MCV (81.0 - 99.0 FL) 100.2 H MCH (27.0 - 31.0 PG) 33.0 H RDW (11.5 - 14.5 %) 15.5 H Plt Count (130 - 400 /CUMM) 176 MPV (7.4 - 10.4 FL) 9.5 Gran % (42.2 - 75.2 %) 66.5 Lymphocytes % (20.5 - 51.1 %) 21.9 Monocytes % (1.7 - 9.3 %) 10.3 H Eosinophils % (0 - 5 %) 1.3 Basophils % (0.0 - 2.0 %) 0 Absolute Granulocytes (1.4 - 6.5 /CUMM) 4.3 Absolute Lymphocytes (1.2 - 3.4 /CUMM) 1.4 Absolute Monocytes (0.10 - 0.60 /CUMM) 0.7 H Absolute Eosinophils (0.0 - 0.7 /CUMM) 0.1 Absolute Basophils (0.0 - 0.2 /CUMM) 0 PUBS MCHC (33.0 - 37.0 G/DL) 33.0
--- NOTE | 2017-11-04 13:16 | PN- Infect Dx ---
Subjective Subjective: Afebrile on steroids. She feels improved though still reports dysphagia. She has no shortness of breath or chest discomfort and has had no further nausea, vomiting, or bloody stools. Objective Last 24 Hrs of Vital Signs/I&O Vital Signs Date Time Temp Pulse Resp B/P B/P Pulse O2 O2 Flow FiO2 Mean Ox Delivery Rate 11/04 0954 84 134/72 11/04 0800 93 Nasal 3.0L Cannula 11/04 0700 98.3 58 18 134/72 92 Nasal 3.0L Cannula 11/04 0000 Nasal 3.0L Cannula 11/03 2227 56 11/03 2210 99.1 52 19 142/62 94 Nasal 2.0L Cannula 11/03 1600 Nasal 3.0L Cannula 11/03 1447 98.7 77 20 122/68 98 11/03 1403 94 Nasal 3.0L Cannula Intake & Output 11/04 1600 11/04 0800 11/04 0000 Intake Total 660 930 Output Total 50 Balance 610 930 Intake, IV 300 130 Intake, Oral 360 800 Output, 50 Emesis Physical Exam Other Physical Findings: She appears more comfortable in no acute distress HEENT negative Lungs are clear Abdomen is soft, nontender with positive bowel sounds Extremities no cyanosis, clubbing or edema Results Last 24 Hours of Lab Results: Laboratory Tests 11/04 0814 Chemistry Sodium (137 - 145 mmol/L) 136 L Potassium (3.5 - 5.1 mmol/L) 3.6 Chloride (98 - 107 mmol/L) 94 L Carbon Dioxide (22 - 30 mmol/L) 32 H Anion Gap (5 - 16) 9 BUN (7 - 17 mg/dL) 6 L Creatinine (0.5 - 1.0 mg/dL) 0.5 Estimated GFR (>60 ml/min) > 60 BUN/Creatinine Ratio (7 - 25 %) 12.0 Phosphorus (2.5 - 4.5 mg/dL) 2.8 Magnesium (1.6 - 2.3 mg/dL) 1.5 L Hematology CBC w Diff NO MAN DIFF REQ WBC (4.8 - 10.8 /CUMM) 6.4 RBC (4.20 - 5.40 /CUMM) 3.24 L Hgb (12.0 - 16.0 G/DL) 10.7 L Hct (37 - 47 %) 32.4 L MCV (81.0 - 99.0 FL) 100.2 H MCH (27.0 - 31.0 PG) 33.0 H RDW (11.5 - 14.5 %) 15.5 H Plt Count (130 - 400 /CUMM) 176 MPV (7.4 - 10.4 FL) 9.5 Gran % (42.2 - 75.2 %) 66.5 Lymphocytes % (20.5 - 51.1 %) 21.9 Monocytes % (1.7 - 9.3 %) 10.3 H Eosinophils % (0 - 5 %) 1.3 Basophils % (0.0 - 2.0 %) 0 Absolute Granulocytes (1.4 - 6.5 /CUMM) 4.3 Absolute Lymphocytes (1.2 - 3.4 /CUMM) 1.4 Absolute Monocytes (0.10 - 0.60 /CUMM) 0.7 H Absolute Eosinophils (0.0 - 0.7 /CUMM) 0.1 Absolute Basophils (0.0 - 0.2 /CUMM) 0 PUBS MCHC (33.0 - 37.0 G/DL) 33.0 Last 24 Hours of South Results: Sputum culture November 04 pending, with gram stain revealing moderate white blood cells and rare to few organisms Stool C. difficile November 03 negative Blood cultures 2 November 01 negative Urine culture November 01 negative Assessment/Plan Impression: Improved with temperatures normal and white blood cell count remaining normal on Tamiflu Day 3 of treatment for Influenza and Unasyn Day 3 for possible pneumonia with her recent chest x-ray revealing a left lower lobe density, possibly secondary to aspiration. She continues to have dysphagia/odynophagia and intermittent rectal bleeding, with upper endoscopy and colonoscopy to be scheduled by GI. Suggestion: 1. Further evaluation of her dysphagia/odynophagia and rectal bleeding per GI 2. Follow-up recent sputum culture 3. Continue Unasyn, with change to Augmentin 875 mg po every 12 hours if she remains stable 4. Continue Tamiflu for 5 days
[2017-11-04 13:51] VITALS: BP 128/60
[2017-11-04 22:24] VITALS: BP 100/60
[2017-11-05 07:10] VITALS: BP 102/64
--- NOTE | 2017-11-05 07:51 | PN- Housestaff ---
Rose Mak 11/05/17 0751: Subjective Follow-up For: Colitis Flu Aspiration pneumonia Complaints: NAUSEA Subjective: Patient was seen and examined this morning. She is slightly feeling better than before but still nauseous and needs antiemetics when necessary. She still desat on ambulation and required nasal cannula oxygen. She remained afebrile and hemodynamically stable. Review of Systems Constitutional: Reports: malaise, weakness. Denies: diaphoresis. Cardiovascular: Denies: edema, orthopena. Respiratory: Reports: cough. Denies: hemoptysis, orthopnea, short of breath. Gastrointestinal: Reports: nausea. Denies: constipation, diarrhea. Genitourinary: Denies: frequency, hematuria. Objective Last 24 Hrs of Vital Signs/I&O Vital Signs Date Time Temp Pulse Resp B/P B/P Pulse O2 O2 Flow FiO2 Mean Ox Delivery Rate 11/05 1134 92 Nasal 2.0L Cannula 11/05 0947 92 118/70 11/05 0800 Nasal 2.0L Cannula 11/05 0710 99.0 52 20 102/64 93 Nasal 2.0L Cannula 11/05 0000 94 Nasal 2.0L Cannula 11/04 2224 98.6 56 20 100/60 94 11/04 2006 94 Nasal 2.0L Cannula 11/04 1600 93 Nasal 2.0L Cannula 11/04 1351 98.6 53 12 128/60 93 Nasal Cannula Intake & Output 11/05 1600 11/05 0800 11/05 0000 Intake Total 520 500 Output Total Balance 520 500 Intake, IV 220 100 Intake, Oral 300 400 Physical Exam General Appearance: Alert, Oriented X3, Cooperative, No Acute Distress Cardiovascular: Regular Rate, Normal S1, Normal S2, No Murmurs Lungs: BASAL CRACKLES Abdomen: Soft, No Tenderness Neurological: Normal Speech, Normal Tone Current Medications: Current Medications Sig/Irving Start time Last Medication Dose Route Stop Time Status Admin Acetaminophen 650 MG Q6P PRN 10/29 0215 AC 11/02 PO 2131 Albuterol Sulfate 3 ML EVERY 4 HRS/AWAKE .. 11/02 1515 AC INH Amoxicillin/ 875 MG BID 11/05 2200 AC Clavulanate Potassium PO Amoxicillin/ 875 MG Q12 11/05 1000 DC 11/05 Clavulanate Potassium PO 1207 Ampicillin Sodium/ 1,500 MG Q6 11/01 1800 DC 11/05 Sulbactam Sodium IV 0609 Sodium Chloride 100 ML Bupropion HCl 300 MG DAILY 10/29 1000 AC 11/05 PO 0948 Dextrose 25 GM ONCE 10/30 1300 AC 10/30 IV 1312 Dicyclomine HCl 20 MG 4 TIMES/DAY PRN 10/30 0100 AC PO Fluoxetine HCl 40 MG DAILY 10/29 1000 AC 11/05 PO 0947 Folic Acid 2 MG DAILY 10/31 1537 AC 11/05 PO 0948 Insulin Aspart 0 TIDAC/HS 11/03 2315 11/04 SC 2116 Insulin Detemir 10 UNITS BID 10/30 220 11/05 SC 0947 Lisinopril 10 MG DAILY 10/31 1219 AC 11/05 PO 0947 Magnesium Oxide 400 MG BID 11/04 1110 DC 11/04 PO 11/04 Morphine Sulfate 60 MG Q8 10/29 0600 11/05 PO 0609 Morphine Sulfate 2 MG Q8P PRN 10/29 0245 11/05 IV 0947 Nicotine 21 MG DAILY 10/29 0230 11/05 TOP 0946 Omeprazole 40 MG DAILY AC 10/31 1100 AC 11/05 PO 0609 Ondansetron HCl 4 MG Q8P PRN 10/29 0515 AC 11/05 PO 0828 Oseltamivir Phosphate 75 MG BID 11/01 2230 AC 11/05 PO 11/09 2227 0947 Oxycodone/ 1 TAB Q6P PRN 10/29 024 11/03 Acetaminophen PO 1634 Potassium Chloride 40 MEQ ONCE ONE 11/05 1315 DC PO 11/05 1316 Prednisone 5 MG DAILY 11/02 1000 AC 11/05 PO 0948 Trazodone HCl 100 MG AT BEDTIME 10/29 2345 11/04 PO 211 Last 24 Hrs of Lab/South Results Last 24 Hrs of Labs/Mics: Laboratory Tests 11/05/17 0915: Anion Gap 10, Estimated GFR > 60, BUN/Creatinine Ratio 16.0, Magnesium 1.6, CBC w Diff NO MAN DIFF REQ, RBC 3.28 L, MCV 100.0 H, MCH 33.1 H, RDW 15.1 H, MPV 9.2, Gran % 61.8, Lymphocytes % 23.8, Monocytes % 11.1 H, Eosinophils % 3.0, Basophils % 0.3, Absolute Granulocytes 4.4, Absolute Lymphocytes 1.7, Absolute Monocytes 0.8 H, Absolute Eosinophils 0.2, Absolute Basophils 0, PUBS MCHC 33.1 Assessment/Plan Assessment: Patient is a 52-year-old woman with a past medical history significant for rheumatoid arthritis (on methotrexate and prednisone), history of type 1 diabetes mellitus on insulin pump, history of anxiety depression, history of hypertension and hyperlipidemia, history of chronic pain syndrome from rheumatoid arthritis on opiates presented to the ED for evaluation of vomiting and bloody stools. Impression/plan #Vomiting with bright red blood per rectum(likely lower GI bleed/infectious colitis: GI evaluation appreciated. Colonoscopies/endoscopy was deferred and can be done as outpatient. She is on low fiber diet but nauseous at of patients. #High-grade fever/flu She spiked a Tmax of of 103.1 11/02/16. Her influenza A came back positive and patient was started on Tamiflu. Progressively she is doing better and remained afebrile for last few days. She would complete a course of Tamiflu today #Difficulty swallowing On esophagogram found to have acid reflux and developed aspiration pneumonia. Was started on Unasyn changed to Augmentin today given her difficulty swallowing we will start her on Augmentin suspension. If she would remained stable most likely would discharge her home tomorrow #History of hypertension hyperlipidemia * Continue statin and we will resume her home dose of lisinopril. #Rheumatoid arthritis (on methotrexate and prednisone) * Currently she is on home dose of prednisone * Hold methotrexate in the setting of infectious colitis. # history of type 1 diabetes mellitus on insulin pump * On insulin pump at home * Follow endocrine recommendations * Accu-Cheks , #history of anxiety depression * Continue home medications #Chronic pain syndrome due to rheumatoid arthritis(history of opioid dependence) * Continue extended release morphine sulfate 60 mg 3 times a day and Percocet. We will try to control her pain on oral medications and will avoid IV morphine today to prepare her going home without IV medications. DVT prophylaxis Alps patient is full code Problem List: 1. Influenza A 2. Colitis Pain Ratin Pain Location: ABDOMIAL Pain Goal: Remain pain free Pain Plan: ARCHIE Tomorrow's Labs & Rationales: CBC AND BEP Rigoberto DIAZ,Arabella 11/05/17 1156: Attending MD Review Statement Attending Statement Attending MD Statement: examined this patient, discuss w/resident/PA/ENERGY ASSISTANT, agreed w/resident/PA/ENERGY ASSISTANT, reviewed EMR data (avail), discussed with nursing, discussed with case mgmt, reviewed images, amended to note Attending Assessment/Plan: Patient seen and examined, overall feeling better. Still feeling somewhat short of breath when walks around. Still requiring oxygen. Vital Signs Date Time Temp Pulse Resp B/P B/P Pulse O2 O2 Flow FiO2 Mean Ox Delivery Rate 11/05 1134 92 Nasal 2.0L Cannula 11/05 0947 92 118/70 11/05 0800 Nasal 2.0L Cannula 11/05 0710 99.0 52 20 102/64 93 Nasal 2.0L Cannula 11/05 0000 94 Nasal 2.0L Cannula 11/04 2224 98.6 56 20 100/60 94 11/04 2006 94 Nasal 2.0L Cannula 11/04 1600 93 Nasal 2.0L Cannula 11/04 1351 98.6 53 12 128/60 93 Nasal Cannula on exam; aox3, nad. cv; s1, s2, rrr resp; clear abd; soft, nt, bs+ ext; no edema. Laboratory Tests 11/05 0915 Chemistry Sodium (137 - 145 mmol/L) 139 Potassium (3.5 - 5.1 mmol/L) 3.4 L Chloride (98 - 107 mmol/L) 97 L Carbon Dioxide (22 - 30 mmol/L) 32 H Anion Gap (5 - 16) 10 BUN (7 - 17 mg/dL) 8 Creatinine (0.5 - 1.0 mg/dL) 0.5 Estimated GFR (>60 ml/min) > 60 BUN/Creatinine Ratio (7 - 25 %) 16.0 Magnesium (1.6 - 2.3 mg/dL) 1.6 Hematology CBC w Diff NO MAN DIFF REQ WBC (4.8 - 10.8 /CUMM) 7.0 RBC (4.20 - 5.40 /CUMM) 3.28 L Hgb (12.0 - 16.0 G/DL) 10.9 L Hct (37 - 47 %) 32.8 L MCV (81.0 - 99.0 FL) 100.0 H MCH (27.0 - 31.0 PG) 33.1 H RDW (11.5 - 14.5 %) 15.1 H Plt Count (130 - 400 /CUMM) 192 MPV (7.4 - 10.4 FL) 9.2 Gran % (42.2 - 75.2 %) 61.8 Lymphocytes % (20.5 - 51.1 %) 23.8 Monocytes % (1.7 - 9.3 %) 11.1 H Eosinophils % (0 - 5 %) 3.0 Basophils % (0.0 - 2.0 %) 0.3 Absolute Granulocytes (1.4 - 6.5 /CUMM) 4.4 Absolute Lymphocytes (1.2 - 3.4 /CUMM) 1.7 Absolute Monocytes (0.10 - 0.60 /CUMM) 0.8 H Absolute Eosinophils (0.0 - 0.7 /CUMM) 0.2 Absolute Basophils (0.0 - 0.2 /CUMM) 0 PUBS MCHC (33.0 - 37.0 G/DL) 33.1 A/P; 52 y/o F with pmh sig for rheumatoid arthritis (on methotrexate and prednisone), history of type 1 diabetes mellitus on insulin pump, history of anxiety depression, history of hypertension and hyperlipidemia, history of chronic pain syndrome admitted with vomiting and bloody diarrhea and found to have diffuse colitis. During her hospital course patient has also developed pneumonia which is possibly aspiration as well as influenza positive. Overall improving. Diarrhea improved. No further blood in the diarrhea. Respiratory status is improving. Patient was encouraged to ambulate. Patient needs to use incentive Spiriva meter. Finish up Tamiflu today. We'll switch Unasyn to Augmentin as recommended by ID. Please DC morphine and patient was told to use Percocet for pain control. Continue the rest of the medications and possibly patient will be able to get discharge tomorrow.
[2017-11-05 10:25] LABS: ABSOLUTE BASOPHIL COUNT 0 /CUMM (0.0-0.2); ABSOLUTE EOSINOPHIL COUNT 0.2 /CUMM (0.0-0.7); ABSOLUTE GRANULOCYTE CT 4.4 /CUMM (1.4-6.5); ABSOLUTE LYMPH COUNT 1.7 /CUMM (1.2-3.4); ABSOLUTE MONOCYTE COUNT 0.8 /CUMM (0.10-0.60); BASOPHIL % 0.3 % (0.0-2.0); GRANULOCYTE % 61.8 % (42.2-75.2); HEMATOCRIT 32.8 % (37-47); MEAN CORPUSCULAR HGB 33.1 PG (27.0-31.0); MEAN CORPUSCULAR HGB CONC 33.1 G/DL (33.0-37.0); MEAN PLATELET VOLUME 9.2 FL (7.4-10.4); PLATELET COUNT 192 /CUMM (130-400); RBC DISTRIBUTION WIDTH 15.1 % (11.5-14.5); RED BLOOD CELL CT 3.28 /CUMM (4.20-5.40)
--- NOTE | 2017-11-05 11:14 | PN- Diabetes ---
Assessment/Plan Assessment: Patient is a 52-year-old woman with a past medical history significant for rheumatoid arthritis (on methotrexate and prednisone 5 mg daily ), history of type 1 diabetes mellitus on insulin pump, history of anxiety depression, history of hypertension and hyperlipidemia, history of chronic pain syndrome on opiates presented to the ED for evaluation of vomiting and bloody stools. Patient has been having intermittent vomiting with loose watery stools for the last [address] scan showed marked colonic wall thickening involving the distal transverse colon, splenic flexure and the descending colon. Patient's rapid flu is positive for influenza A and she is on Tamiflu. There is also possible pneumonia on chest x-ray and she is on Augmentin. She was on stress dose of steroids. Currently she is on prednisone 5 mg daily. The patient is on a diabetic diet. She is on Levemir 10 units twice a day, Novolog coverage before meals was adjusted over the weekend. Her fingerstick blood sugars were 354, 369, 318, 222 and 134. Plan: 1. she feels slightly nauseous this morning, patient prefers keeping the current insulin regimen for now. 2. replete K and continue monitoring electrolytes; 3. continue monitoring her FSGs. will follow. Subjective Subjective: She is on oxygen and feels slightly nauseous this morning. Objective Last 24 Hrs of Vital Signs/I&O Vital Signs Date Time Temp Pulse Resp B/P B/P Pulse O2 O2 Flow FiO2 Mean Ox Delivery Rate 11/05 0947 92 118/70 11/05 0800 Nasal 2.0L Cannula 11/05 0710 99.0 52 20 102/64 93 Nasal 2.0L Cannula 11/05 0000 94 Nasal 2.0L Cannula 11/04 2224 98.6 56 20 100/60 94 11/04 2006 94 Nasal 2.0L Cannula 11/04 1600 93 Nasal 2.0L Cannula 11/04 1351 98.6 53 12 128/60 93 Nasal Cannula Intake & Output 11/05 1600 11/05 0800 11/05 0000 Intake Total 520 500 Output Total Balance 520 500 Intake, IV 220 100 Intake, Oral 300 400 Findings Pertinent Lab/South Results: Laboratory Tests 11/05 09 Chemistry Sodium (137 - 145 mmol/L) 139 Potassium (3.5 - 5.1 mmol/L) 3.4 L Chloride (98 - 107 mmol/L) 97 L Carbon Dioxide (22 - 30 mmol/L) 32 H Anion Gap (5 - 16) 10 BUN (7 - 17 mg/dL) 8 Creatinine (0.5 - 1.0 mg/dL) 0.5 Estimated GFR (>60 ml/min) > 60 BUN/Creatinine Ratio (7 - 25 %) 16.0 Magnesium (1.6 - 2.3 mg/dL) 1.6 Hematology CBC w Diff NO MAN DIFF REQ WBC (4.8 - 10.8 /CUMM) 7.0 RBC (4.20 - 5.40 /CUMM) 3.28 L Hgb (12.0 - 16.0 G/DL) 10.9 L Hct (37 - 47 %) 32.8 L MCV (81.0 - 99.0 FL) 100.0 H MCH (27.0 - 31.0 PG) 33.1 H RDW (11.5 - 14.5 %) 15.1 H Plt Count (130 - 400 /CUMM) 192 MPV (7.4 - 10.4 FL) 9.2 Gran % (42.2 - 75.2 %) 61.8 Lymphocytes % (20.5 - 51.1 %) 23.8 Monocytes % (1.7 - 9.3 %) 11.1 H Eosinophils % (0 - 5 %) 3.0 Basophils % (0.0 - 2.0 %) 0.3 Absolute Granulocytes (1.4 - 6.5 /CUMM) 4.4 Absolute Lymphocytes (1.2 - 3.4 /CUMM) 1.7 Absolute Monocytes (0.10 - 0.60 /CUMM) 0.8 H Absolute Eosinophils (0.0 - 0.7 /CUMM) 0.2 Absolute Basophils (0.0 - 0.2 /CUMM) 0 PUBS MCHC (33.0 - 37.0 G/DL) 33.1
[2017-11-05 14:22] VITALS: BP 110/72
[2017-11-05] MEDS ORDERED: ONDANSETRON ODT4 M1 PO (15:37)
[2017-11-05] MEDS ORDERED: AMOX-CLAV400 MG/5 M PO (15:37)
[2017-11-05] MEDS ORDERED: BENTYL10 M1 PO (15:37)
--- NOTE | 2017-11-05 15:38 | Patient Discharge Instructions ---
Discharge Instructions General Discharge Information You were seen/treated for: Colitis Flu Aspiration pneumonia Special Instructions: Please follow-up with your primary care physician in one week of discharge Please follow-up with gastroenterology and schedule colonoscopy in near future with Dr. Aristides Hoskins Please take medications as prescribed Patient is on insulin pump at home. Which was discontinued during hospital stay and patient was instructed to continue on discharge. Diet Recommended Diet: Low Residue Activity Additional ACTIVITY Info: As tolerated Acute Coronary Syndrome Inclusion Criteria At DC or during hospital stay patient has or had the following: ACS DIAGNOSIS No Discharge Core Measures Meds if any: Prescribed or Continued at Discharge Meds if any: NOT Prescribed or Continued at Discharge Congestive Heart Failure Inclusion Criteria At DC or during hospital stay patient has or had the following: CHF DIAGNOSIS No Discharge Core Measures Meds if any: Prescribed or Continued at Discharge Meds if any: NOT Prescribed or Continued at Discharge Cerebrovascular accident Inclusion Criteria At DC or during hospital stay patient has or had the following: CVA/TIA Diagnosis No Discharge Core Measures Meds if any: Prescribed or Continued at Discharge Meds if any: NOT Prescribed or Continued at Discharge Venous thromboembolism Inclusion Criteria VTE Diagnosis No VTE Type NONE VTE Confirmed by (Test) NONE Discharge Core Measures - Per Current guidelines, there needs to be overlap - treatment for the first 5 days of Warfarin therapy. - If discharged on Warfarin prior to 5 days of - overlap therapy, the patient will need to be - assessed for post discharge needs including - *Post discharge parental anticoagulation - *Warfarin and/or parental anticoagulation education - *Follow up date to check INR post discharge At least 5 days overlap therapy as Inpatient No Meds if any: Prescribed or Continued at Discharge Note: Overlap Therapy is Warfarin and Anticoagulant Meds if any: NOT Prescribed or Continued at Discharge
[2017-11-05 22:33] VITALS: BP 142/78
[2017-11-06 06:18] VITALS: BP 134/68
--- NOTE | 2017-11-06 08:13 | PN- Housestaff ---
Rose Mak 11/06/17 0812: Subjective Follow-up For: Colitis Flu Aspiration pneumonia Complaints: no complaints Subjective: Patient was seen and examined this morning. She was sitting comfortably in bed without any significant complaints. She remained afebrile and able to tolerate oral food without any significant nausea or vomiting. Patient is stable enough to send home today. Review of Systems Constitutional: Reports: weakness. Denies: chills, diaphoresis, malaise. Cardiovascular: Denies: chest pain, edema, orthopena. Respiratory: Reports: cough. Denies: orthopnea, short of breath. Gastrointestinal: Denies: bloating, constipation, diarrhea. Genitourinary: Denies: dysuria, frequency, hematuria. Musculoskeletal: Reports: joint pain, muscle pain. Objective Last 24 Hrs of Vital Signs/I&O Vital Signs Date Time Temp Pulse Resp B/P B/P Pulse O2 O2 Flow FiO2 Mean Ox Delivery Rate 11/06 0951 82 132/74 11/06 0800 Nasal 1.0L Cannula 11/06 0618 98.1 65 18 134/68 95 Nasal Cannula 11/06 0000 Nasal 2.0L Cannula 11/05 2233 98.4 53 20 142/78 95 Nasal 2.0L Cannula 11/05 1600 Nasal 2.0L Cannula Intake & Output 11/06 1600 11/06 0800 11/06 0000 Intake Total 480 480 Output Total Balance 480 480 Intake, Oral 480 480 Physical Exam General Appearance: Alert, Oriented X3, Cooperative, No Acute Distress Cardiovascular: Regular Rate, Normal S1, Normal S2, No Murmurs Lungs: Normal Air Movement Abdomen: Soft, No Tenderness Neurological: Normal Speech, Strength at 5/5 X4 Ext, Normal Tone Current Medications: Current Medications Sig/Irving Start time Last Medication Dose Route Stop Time Status Admin Acetaminophen 650 MG Q6P PRN 10/29 0215 DCD 11/02 PO 2131 Albuterol Sulfate 3 ML EVERY 4 HRS/AWAKE .. 11/02 1515 DCD INH Amoxicillin/ 875 MG BID 11/05 2200 DCD 11/06 Clavulanate Potassium PO 0950 Bupropion HCl 300 MG DAILY 10/29 1000 DCD 11/06 PO 0951 Dextrose 25 GM ONCE 10/30 1300 DCD 10/30 IV 1312 Dicyclomine HCl 20 MG 4 TIMES/DAY PRN 10/30 0100 DCD PO Fluoxetine HCl 40 MG DAILY 10/29 1000 DCD 11/06 PO 0951 Folic Acid 2 MG DAILY 10/31 1537 DCD 11/06 PO 0951 Insulin Aspart 0 TIDAC/HS 11/03 2315 ARD 11/05 SC 1712 Insulin Detemir 10 UNITS BID 10/30 2200 DCD 11/06 SC 0957 Lisinopril 10 MG DAILY 10/31 1219 ARD 11/06 PO 0951 Morphine Sulfate 60 MG Q8 10/29 0600 ARD 11/06 PO 0540 Nicotine 21 MG DAILY 10/29 0230 ARD 11/06 TOP 0952 Omeprazole 40 MG DAILY AC 10/31 1100 DCD 11/06 PO 0540 Ondansetron HCl 4 MG Q8P PRN 10/29 0515 ARD 11/05 PO 0828 Oseltamivir Phosphate 75 MG BID 11/01 2230 DCD 11/06 PO 11/09 2228 0952 Oxycodone/ 1 TAB Q6P PRN 10/29 0245 ARD 11/06 Acetaminophen PO 0441 Prednisone 5 MG DAILY 11/02 1000 DCD 11/06 PO 0951 Trazodone HCl 100 MG AT BEDTIME 10/29 2345 DCD 11/05 PO 2208 Last 24 Hrs of Lab/South Results Last 24 Hrs of Labs/Mics: Laboratory Tests 11/06/17 0805: Anion Gap 13, Estimated GFR > 60, BUN/Creatinine Ratio 12.0, CBC w Diff NO MAN DIFF REQ, RBC 3.45 L, MCV 100.4 H, MCH 33.0 H, RDW 15.0 H, MPV 9.4, Gran % 47.4, Lymphocytes % 38.6, Monocytes % 10.6 H, Eosinophils % 2.9, Basophils % 0.5, Absolute Granulocytes 3.4, Absolute Lymphocytes 2.8, Absolute Monocytes 0.8 H, Absolute Eosinophils 0.2, Absolute Basophils 0, PUBS MCHC 32.8 L Assessment/Plan Assessment: Patient is a 52-year-old woman with a past medical history significant for rheumatoid arthritis (on methotrexate and prednisone), history of type 1 diabetes mellitus on insulin pump, history of anxiety depression, history of hypertension and hyperlipidemia, history of chronic pain syndrome from rheumatoid arthritis on opiates presented to the ED for evaluation of vomiting and bloody stools. Impression/plan #Vomiting with bright red blood per rectum(likely lower GI bleed/infectious colitis: GI evaluation appreciated. Colonoscopies/endoscopy was deferred and can be done as outpatient. Her nausea Improved and patient is stable enough to send home with instruction to follow-up with gastroenterology as outpatient. #High-grade fever/flu She spiked a Tmax of of 103.1 11/02/16. Her influenza A came back positive and patient was started on Tamiflu. Progressively she is doing better and remained afebrile for last few days. She completed a course of Tamiflu during hospital stay #Difficulty swallowing On esophagogram found to have acid reflux and developed aspiration pneumonia. Patient completed a course of antibiotic for 5 days during hospital stay and would discharge home today #History of hypertension hyperlipidemia * Continue statin and we will resume her home dose of lisinopril. #Rheumatoid arthritis (on methotrexate and prednisone) * Currently she is on home dose of prednisone * Hold methotrexate in the setting of infectious colitis. # history of type 1 diabetes mellitus on insulin pump * On insulin pump at home * Follow endocrine recommendations and patient was instructed to go back on her insulin pump at home. * Accu-Cheks , #history of anxiety depression * Continue home medications #Chronic pain syndrome due to rheumatoid arthritis(history of opioid dependence) * Continue extended release morphine sulfate 60 mg 3 times a day and Percocet. We will resume her home medications on discharge DVT prophylaxis Alps patient is full code Problem List: 1. Influenza A 2. Aspiration pneumonia Pain Ratin Pain Location: Not applicable Pain Goal: Remain pain free Pain Plan: TYLENOL Tomorrow's Labs & Rationales: None Arabella Franklin MD 11/06/17 1146: Attending MD Review Statement Attending Statement Attending MD Statement: examined this patient, discuss w/resident/PA/PRECISION STRUCTURAL METAL FITTER, agreed w/resident/PA/PRECISION STRUCTURAL METAL FITTER, reviewed EMR data (avail), discussed with nursing, discussed with case mgmt, reviewed images, amended to note Attending Assessment/Plan: Patient seen and examined, doing much better. Remains afebrile. Has completed the course of azithromycin and Augmentin. He stable for discharge. I discussed with Dr. Huang who had given patient instructions about her insulin pump which she is supposed to resume and she goes home. She was also started here on a PPI which she will be given a prescription for. Antiemetic and anti-spasmodic will be given as needed. Patient should follow with her primary care doctor, day worker and furnace packer as an outpatient. This was all discussed with the patient.
[2017-11-06 08:55] LABS: ABSOLUTE BASOPHIL COUNT 0 /CUMM (0.0-0.2); ABSOLUTE EOSINOPHIL COUNT 0.2 /CUMM (0.0-0.7); ABSOLUTE GRANULOCYTE CT 3.4 /CUMM (1.4-6.5); ABSOLUTE LYMPH COUNT 2.8 /CUMM (1.2-3.4); ABSOLUTE MONOCYTE COUNT 0.8 /CUMM (0.10-0.60); BASOPHIL % 0.5 % (0.0-2.0); EOSINOPHIL % 2.9 % (0-5); GRANULOCYTE % 47.4 % (42.2-75.2); HEMATOCRIT 34.7 % (37-47); MEAN CORPUSCULAR HGB CONC 32.8 G/DL (33.0-37.0); MEAN CORPUSCULAR VOLUME 100.4 FL (81.0-99.0); MEAN PLATELET VOLUME 9.4 FL (7.4-10.4); PLATELET COUNT 231 /CUMM (130-400); RED BLOOD CELL CT 3.45 /CUMM (4.20-5.40); WHITE BLOOD CELL COUNT 7.2 /CUMM (4.8-10.8)
[2017-11-06] MEDS ORDERED: PRILOSEC OTC20 M1 PO (09:46)
[2017-11-06 09:51] VITALS: BP 132/74
[2017-11-06] MEDS ORDERED: BENTYL10 M1 PO (09:54)
--- NOTE | 2017-11-06 10:21 | PN- Diabetes ---
Assessment/Plan Assessment: Patient is a 52-year-old woman with a past medical history significant for rheumatoid arthritis (on methotrexate and prednisone 5 mg daily ), history of type 1 diabetes mellitus on insulin pump, history of anxiety depression, history of hypertension and hyperlipidemia, history of chronic pain syndrome on opiates presented to the ED for evaluation of vomiting and bloody stools. Patient has been having intermittent vomiting with loose watery stools for the last [address] scan showed marked colonic wall thickening involving the distal transverse colon, splenic flexure and the descending colon. Patient's rapid flu is positive for influenza A and she is on Tamiflu. There is also possible pneumonia on chest x-ray and she is on Augmentin. She was on stress dose of steroids. Currently she is on prednisone 5 mg daily. The patient is on a diabetic diet. She is on Levemir 10 units twice a day, Novolog coverage before meals was adjusted over the weekend. Her fingerstick blood sugars were 134, 241, 325, 241 and 136. Plan: continue the current insulin regimen for now; monitor FSGs. will follow. Subjective Subjective: She feels better this morning. Objective Last 24 Hrs of Vital Signs/I&O Vital Signs Date Time Temp Pulse Resp B/P B/P Pulse O2 O2 Flow FiO2 Mean Ox Delivery Rate 11/06 0951 82 132/74 11/06 0618 98.1 65 18 134/68 95 Nasal Cannula 11/06 0000 Nasal 2.0L Cannula 11/05 2233 98.4 53 20 142/78 95 Nasal 2.0L Cannula 11/05 1600 Nasal 2.0L Cannula 11/05 1422 97.7 52 18 110/72 98 11/05 1134 92 Nasal 2.0L Cannula Intake & Output 11/06 1600 11/06 0800 11/06 0000 Intake Total 480 480 Output Total Balance 480 480 Intake, Oral 480 480 Findings Pertinent Lab/South Results: Laboratory Tests 11/06 08 Chemistry Sodium (137 - 145 mmol/L) 144 Potassium (3.5 - 5.1 mmol/L) 3.8 Chloride (98 - 107 mmol/L) 100 Carbon Dioxide (22 - 30 mmol/L) 31 H Anion Gap (5 - 16) 13 BUN (7 - 17 mg/dL) 6 L Creatinine (0.5 - 1.0 mg/dL) 0.5 Estimated GFR (>60 ml/min) > 60 BUN/Creatinine Ratio (7 - 25 %) 12.0 Hematology CBC w Diff NO MAN DIFF REQ WBC (4.8 - 10.8 /CUMM) 7.2 RBC (4.20 - 5.40 /CUMM) 3.45 L Hgb (12.0 - 16.0 G/DL) 11.4 L Hct (37 - 47 %) 34.7 L MCV (81.0 - 99.0 FL) 100.4 H MCH (27.0 - 31.0 PG) 33.0 H RDW (11.5 - 14.5 %) 15.0 H Plt Count (130 - 400 /CUMM) 231 MPV (7.4 - 10.4 FL) 9.4 Gran % (42.2 - 75.2 %) 47.4 Lymphocytes % (20.5 - 51.1 %) 38.6 Monocytes % (1.7 - 9.3 %) 10.6 H Eosinophils % (0 - 5 %) 2.9 Basophils % (0.0 - 2.0 %) 0.5 Absolute Granulocytes (1.4 - 6.5 /CUMM) 3.4 Absolute Lymphocytes (1.2 - 3.4 /CUMM) 2.8 Absolute Monocytes (0.10 - 0.60 /CUMM) 0.8 H Absolute Eosinophils (0.0 - 0.7 /CUMM) 0.2 Absolute Basophils (0.0 - 0.2 /CUMM) 0 PUBS MCHC (33.0 - 37.0 G/DL) 32.8 L
== END 2017-11-06 10:48 | DRG 391 ==
LOC: ERH 20:49 → 2NA 10-29 00:38 → ERHI 10-29 00:38 → ENRESERV 10-29 21:04 → ENTRNSPT 10-29 21:57 → EDTRNSPT 10-29 22:05 → EDTRNSPTSTS 10-29 22:05 → 2NA 10-29 22:13 → CMPTRNSPT 10-29 22:19 → ENPENDDIS 11-06 10:06 → ENTRNSPT 11-06 10:40 → 2NA 11-06 10:48 → CMPTRNSPT 11-06 11:46
PROVIDERS: Internal Medicine; Internal Medicine Hematology & Oncology; Pediatrics; Student in an Organized Health Care Education/Training Program
DX: K52.9 Noninfective gastroenteritis and colitis, unspecified (principal); J69.0 Pneumonitis due to inhalation of food and vomit; E87.1 Hypo-osmolality and hyponatremia; M86.9 Osteomyelitis, unspecified; R13.10 Dysphagia, unspecified; R11.2 Nausea with vomiting, unspecified; E10.9 Type 1 diabetes mellitus without complications; Z79.4 Long term (current) use of insulin; Z96.41 Presence of insulin pump (external) (internal); M06.9 Rheumatoid arthritis, unspecified; I10 Essential (primary) hypertension; G89.29 Other chronic pain; R19.5 Other fecal abnormalities; R19.7 Diarrhea, unspecified; G89.4 Chronic pain syndrome; J10.1 Influenza due to other identified influenza virus with other respiratory manifestations; F41.9 Anxiety disorder, unspecified; F32.9 Major depressive disorder, single episode, unspecified; E78.5 Hyperlipidemia, unspecified; Z79.52 Long term (current) use of systemic steroids
CPT/HCPCS: 2NAP; 36415; 71045; 74177; 74220; 81003; 82436; 87040; 87045; 87070; 87071; 87086; 87804; 87804-59; 93005; 93010; 96361; 96372; 96374; 99291; J1720; J2405; J3101; J3490; J7042; J7060; J7512